=== PATIENT | male | born 1945 | race Two or more races ===

== ENCOUNTER 2017-08-11 10:38 | Inpatient (IN) | payer MEDICARE, BC ==
[2017-08-11] MEDS ORDERED: OXYCODONE-ACETAMINOPHEN 5-325 MG TABLET PO PRN ×2 (11:03→11:04)
[2017-08-11] MEDS ORDERED: ACETAMINOPHEN 325 MG TABLET PO PRN (11:03)
[2017-08-11 11:42] LABS: HEMATOCRIT 29.6 % (37.9-51.0); HEMOGLOBIN 10.2 g/dL (13.5-17.0); MEAN CORPUSCULAR HEMOGLOBIN 26.5 pg (27.0-33.4); MEAN CORPUSCULAR HGB CONC 34.3 g/dL (32.0-36.0); MEAN CORPUSCULAR VOLUME 77 fl (80-97); RED BLOOD COUNT 3.83 10^6/uL (4.35-5.55); RED CELL DISTRIBUTION WIDTH 14.3 % (11.5-14.0); WHITE BLOOD COUNT 9.6 10^3/uL (4.0-10.5)
[2017-08-11] MEDS ORDERED: DEXAMETHASONE SOD PHOS INJ 10 MG/1 ML VIAL IV ONE (12:00)
[2017-08-11] MEDS ORDERED: ALLOPURINOL 300 MG TABLET PO ONE (12:00)
[2017-08-11 12:03] LABS: ABSOLUTE EOSINOPHILS# (MANUAL) 0.5 10^3/uL (0.0-0.6); BAND NEUTROPHILS % (MANUAL) 8 % (3-5); BASOPHILS % (MANUAL) 2 % (0-2); EOSINOPHILS % (MANUAL) 5 % (0-6); LYMPHOCYTES % (MANUAL) 17 % (13-45); NUCLEATED RED BLOOD CELLS 3 /100 WBC (0); TOTAL CELLS COUNTED 100
[2017-08-11 12:06] LABS: ALANINE AMINOTRANSFERASE 54 U/L (21-72); ALBUMIN 4.5 g/dL (3.5-5.0); ALKALINE PHOSPHATASE 108 U/L (38-126); ANION GAP 18 (5-19); ASPARTATE AMINO TRANSFERASE 95 U/L (17-59); BILIRUBIN,DIRECT 0.3 mg/dL (0.0-0.4); BILIRUBIN,TOTAL 0.9 mg/dL (0.2-1.3); BLOOD UREA NITROGEN 18 mg/dL (7-20); CALCIUM 10.6 mg/dL (8.4-10.2); CARBON DIOXIDE 26 mmol/L (22-30); CHLORIDE 102 mmol/L (98-107); CREATININE RESULT 1.11 mg/dL (0.52-1.25); GLUCOSE 130 mg/dL (75-110); POTASSIUM 4.7 mmol/L (3.6-5.0); SODIUM 145.7 mmol/L (137-145); TOTAL PROTEIN 7.1 g/dL (6.3-8.2); URIC ACID 11.3 mg/dL (3.5-8.5)
[2017-08-11 12:07] LABS: ANISOCYTOSIS SLIGHT; HYPOCHROMASIA SLIGHT; MICROCYTOSIS SLIGHT; OVALOCYTES 1+; POIKILOCYTOSIS 1+; POLYCHROMASIA SLIGHT; ROULEAUX 1+
[2017-08-11 12:49] LABS: LDH 7077 U/L (313-618)
[2017-08-11 12:58] LABS: PATH REVIEW PATHOLOGIST REVIEWED
[2017-08-11] MEDS: NORMAL SALINE 1000 ML 1,000 ML IV PRN (13:49)
--- NOTE | 2017-08-11 16:48 | CONSULTATION REPORT E ---
Consultation Report NAME: CRISTEL PRESSLEY : 1945 AGE: 71Y DATE: 08/11/2017 435 A TO: LARRY ROWE M.D. FROM: PREETHI FUENTES M.D. Requesting Physician REASON FOR REFERRAL: Possible recurrent non-Hodgkin lymphoma. 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 He had presented with abdominal pain and was started on chemotherapy with R-CHOP. He received a total of 6 cycles and went into complete remission. His last chemotherapy was in 2013 and he states that he has been doing well up until about a month ago when he noticed increased weight loss, decreased appetite, and he presented in his primary care's office with abdominal pain and itching. His blood work shows elevated LDH, increased uric acid and increased serum calcium with renal insufficiency. He was admitted into the hospital. PAST MEDICAL HISTORY: As stated above, includes a history of non-Hodgkin lymphoma, high blood pressure, diabetes, hyperlipidemia. PHYSICAL EXAMINATION: GENERAL: On exam, he is an elderly man. He is not acutely ill looking. He was lying in bed, comfortable, with his by his bedside. LYMPH NODES: He has no palpable cervical or axillary adenopathy. ABDOMEN: His abdomen is slightly distended, soft. No area of tenderness. EXTREMITIES: No lower extremity edema. IMPRESSION AND PLAN: The patient is a 71-year-old man with a prior history of non-Hodgkin lymphoma. His symptoms and most recent blood work are concerning for recurrence of his lymphoma. I will request peripheral blood for flow cytometry, in addition I agree with his hydration and hopefully he will be able to obtain a CAT scan of his chest, abdomen and pelvis. If there are any enlarged lymph nodes or masses, this will need to be biopsied. I explained to him that if he has recurrence of his lymphoma and it is non-Hodgkin lymphoma, he would most likely be treated with the same regimen with plans to proceed to bone marrow transplant. I will discuss this in more details with him when we have a diagnosis. In the interim, I agree with the allopurinol because of increased uric acid and LDH, high calcium suggesting possible tumor lysis. He can be started on steroid, usually one would give 100 mg of prednisone daily for 5 days. I thank you for this consultation and allowing me to be part of his care. DICTATING PHYSICIAN: LARRY ROWE M.D. [id number] PHY#: [id number] ID: [id number] JOB#: [id number] ACCT: [id number] cc:LARRY ROWE M.D. >
[2017-08-11 18:41] LABS: APPEARANCE,URINE CLEAR; BILIRUBIN,URINE NEGATIVE (NEGATIVE); GLUCOSE, URINE 50 mg/dL (NEGATIVE); KETONES,URINE NEGATIVE (NEGATIVE); LEUKOCYTE ESTERASE,URINE NEGATIVE (NEGATIVE); NITRITE,URINE NEGATIVE (NEGATIVE); PROTEIN,URINE NEGATIVE (NEGATIVE); URINE SPECIFIC GRAVITY 1.017; UROBILINOGEN,URINE NEGATIVE mg/dL (<2.0)
[2017-08-11] MEDS ORDERED: INSULIN LISPRO 100 UNIT/ML 3 ML VIAL SUBCUT PRN (19:11)
[2017-08-11] MEDS ORDERED: GLUCAGON,HUMAN RECOMB 1 MG INJ IM PRN (19:11)
[2017-08-11] MEDS ORDERED: DEXTROSE 40% GEL 15 GM TUBE PO PRN ×2 (19:11)
[2017-08-11] MEDS ORDERED: (PENDING PHARMACY ID) (Ammonium Lactate 1 APPLIC) TP PRN (19:11)
[2017-08-11] MEDS ORDERED: DEXTROSE 50%-WATER 25 GM/50 ML DISP.SYRIN IV PRN ×2 (19:11)
[2017-08-11] MEDS: DEXAMETHASONE SOD PHOSPHATE INJ 4 MG/1 ML VIAL IV SCH (19:20)
[2017-08-11] MEDS ORDERED: AMMONIUM LACTATE 12% LOTION 225GM BOTTLE TP PRN (19:33)
--- NOTE | 2017-08-11 21:18 | PDOC H&P ---
History of Present Illness Admission Date/PCP: 08/11/17 10:38 PREETHI LEONKRYSTALMirian Patient complains of: Chest and back pain History of Present Illness: CRISTEL PRESSLEY is a 71 year old male known to my practice who presented to the office initially on 08/09/2017 with complaint of generalized itching, night sweats, and feeling hot. He was treated symptomatically but with concern for recurrence of his Non-Hodgkin lymphoma. His laboratory evaluation including CBC , LDH and Uric acid level did suggest significant anemia, thrombocytopenia, elevated LDH and uric acid level. Patient reported development of chest pain and abdominal pain since last office visit. He reported worsening of sharp back pain with radiation into his legs, rated at 8/10 level, and interference with his sleep. Patient denied any identifiable trigger event for hos abdominal pain that travel up and down his abdomen and into his chest. He denied any other associated abdominal or chest symptoms. His initial evaluation in the office was significant for persistent tachycardia. In view of his presenting symptoms and medical history he was advised admission to hospital for further evaluation and management. Past Medical History Cardiac Medical History: Reports: Hyperlipidema, Hypertension Endocrine Medical History: Reports: Diabetes Mellitus Type 2, Obesity Renal/ Medical History: Reports: Other - BPH, Erectile Dysfunction Malignancy Medical History: Reports: Lymphoma - Non Hodgkin's Lymphoma. Psychiatric Medical History: Denies: Depression Social History Smoking Status: Former Smoker Frequency of Alcohol Use: None Hx Recreational Drug Use: No Drugs: None Hx Prescription Drug Abuse: No - Advance Directive Resuscitation Status: Full Code Family History Family History: None Parental Family History Reviewed: Yes Children Family History Reviewed: Yes Sibling(s) Family History Reviewed.: Yes Medication/Allergy Home Medications: Amlodipine Besylate [Norvasc 5 mg Tablet] 5 mg PO DAILY 08/11/17 Ammonium Lactate [Lac-Hydrin 12% Lotion 225Gm/Bottle] 1 applic TP TIDP PRN 08/11 Atorvastatin Calcium [Lipitor 20 mg Tablet] 20 mg PO QHS 08/11/17 Benazepril HCl [Lotensin] 40 mg PO DAILY 08/11/17 Esomeprazole Magnesium [Nexium] 40 mg PO QAM 08/11/17 Hydroxyzine HCl [Atarax 25 mg Tablet] 1 tab PO QIDP PRN 08/11/17 Nateglinide [Starlix] 120 mg PO MEALS 08/11/17 Pioglitazone HCl/Glimepiride [Pioglitaz-Glimepir 30-4 mg Tab] 1 tab PO DAILY Allergies/Adverse Reactions: clonidine Allergy (Unverified 08/11/17 11:06) Review of Systems Constitutional: PRESENT: fatigue, night sweats, weight loss Eyes: PRESENT: visual disturbances Ears: ABSENT: hearing changes Nose, Mouth, and Throat: ABSENT: as per HPI, headache(s), mouth pain, sore throat, vertigo, other Cardiovascular: PRESENT: chest pain Respiratory: ABSENT: cough, hemoptysis Gastrointestinal: PRESENT: abdominal pain. ABSENT: as per HPI, bloating, coffee ground emesis, constipation, diarrhea, dysphagia, heartburn, hematemesis , hematochezia, melena, nausea, vomiting, other Musculoskeletal: ABSENT: joint swelling Integumentary: PRESENT: pruritus Neurological: ABSENT: abnormal gait, abnormal speech, confusion, dizziness, focal weakness, syncope Psychiatric: ABSENT: anxiety, depression, homidical ideation, suicidal ideation Endocrine: ABSENT: cold intolerance, heat intolerance, polydipsia, polyuria Hematologic/Lymphatic: ABSENT: easy bleeding, easy bruising, lymphadenopathy Allergic/Immunologic: ABSENT: seasonal rhinorrhea Physical Exam Vital Signs: Temp Pulse Resp BP Pulse Ox 98.1 F 104 H 18 121/63 100 08/11/17 16:00 08/11/17 16:00 08/11/17 16:00 08/11/17 16:00 08/11/17 16:00 Intake & Output 08/10/17 08/11/17 08/12/17 06:59 06:59 06:59 Intake Total 1090 Output Total 300 Balance 790 Weight 95.164 kg General appearance: PRESENT: no acute distress, cooperative, obese Head exam: PRESENT: atraumatic, normocephalic Eye exam: PRESENT: conjunctiva pink, EOMI, PERRLA. ABSENT: scleral icterus Ear exam: PRESENT: normal external ear exam Mouth exam: PRESENT: moist, tongue midline Teeth exam: ABSENT: dental caries, dental tenderness, edentulous, poor dentation , other Throat exam: ABSENT: post pharyngeal erythema, tonsillar erythema, tonsillar exudate, tonsillogmegaly, other Neck exam: PRESENT: full ROM. ABSENT: carotid bruit, JVD, lymphadenopathy, thyromegaly Respiratory exam: PRESENT: clear to auscultation jihan Cardiovascular exam: PRESENT: RRR, +S1, +S2, tachycardia. ABSENT: diastolic murmur, rubs, systolic murmur Pulses: PRESENT: normal dorsalis pedis pul, +2 pedal pulses bilateral Vascular exam: PRESENT: normal capillary refill. ABSENT: pallor GI/Abdominal exam: PRESENT: normal bowel sounds, soft. ABSENT: distended, guarding, mass, organolmegaly, rebound, tenderness Rectal exam: PRESENT: deferred Gentrourinary exam: ABSENT: scrotal swelling, testicular tenderness, urethral discharge Extremities exam: ABSENT: pedal edema Musculoskeletal exam: PRESENT: deformity - related to multiple jpints involvement with arthritis Neurological exam: PRESENT: alert, awake, oriented to person, oriented to place , oriented to time, oriented to situation, CN II-XII grossly intact. ABSENT: motor sensory deficit Psychiatric exam: PRESENT: appropriate affect, normal mood. ABSENT: homicidal ideation, suicidal ideation Skin exam: PRESENT: dry, rash - scaly around chest and neck region, warm Results Laboratory Results: 08/11/17 11:28 08/11/17 11:28 08/11/17 08/11/17 08/11/17 11:28 11:28 16:13 WBC 9.6 RBC 3.83 L Hgb 10.2 L Hct 29.6 L MCV 77 L MCH 26.5 L MCHC 34.3 RDW 14.3 H Plt Count 34 L Seg Neutrophils % Not Reportable Lymphocytes % Not Reportable Monocytes % Not Reportable Eosinophils % Not Reportable Basophils % Not Reportable Absolute Neutrophils Not Reportable Absolute Lymphocytes Not Reportable Absolute Monocytes Not Reportable Absolute Eosinophils Not Reportable Absolute Basophils Not Reportable Sodium 145.7 H Potassium 4.7 Chloride 102 Carbon Dioxide 26 Anion Gap 18 BUN 18 Creatinine 1.11 Est GFR ( Amer) > 60 Est GFR (Non-Af Amer) > 60 Glucose 130 H Uric Acid 11.3 H Calcium 10.6 H Total Bilirubin 0.9 AST 95 H ALT 54 Alkaline Phosphatase 108 Total Protein 7.1 Albumin 4.5 Urine Color YELLOW Urine Appearance CLEAR Urine pH 5.0 Ur Specific [place] 1.017 Urine Protein NEGATIVE Urine Glucose (UA) 50 H Urine Ketones NEGATIVE Urine Blood NEGATIVE Urine Nitrite NEGATIVE Ur Leukocyte Esterase NEGATIVE Urine WBC (Auto) 1 Assessment & Plan - Diagnosis (1) Diffuse large B cell lymphoma Qualifiers: Lymphoma site: unspecified region Qualified Code(s): C83.30 - Diffuse large B-cell lymphoma, unspecified site Is this a current diagnosis for this admission?: Yes Plan: See admitting physician orders. (2) Hypercalcemia of malignancy Is this a current diagnosis for this admission?: Yes Plan: Probably related to his underlying malignancy with tumor lysis process. See admitting physician orders. (3) Hyperuricemia Is this a current diagnosis for this admission?: Yes Plan: Probably related to his underlying malignancy with tumor lysis process. See admitting physician orders. (4) Diabetes mellitus type 2 in obese Is this a current diagnosis for this admission?: Yes Plan: See admitting physician orders (5) HTN (hypertension) Qualifiers: Hypertension type: essential hypertension Qualified Code(s): I10 - Essential (primary) hypertension Is this a current diagnosis for this admission?: Yes Plan: See admitting physician orders. (6) HLD (hyperlipidemia) Qualifiers: Hyperlipidemia type: unspecified Qualified Code(s): E78.5 - Hyperlipidemia , unspecified Is this a current diagnosis for this admission?: Yes Plan: See admitting physician orders (7) Osteoarthritis involving multiple joints on both sides of body Is this a current diagnosis for this admission?: Yes Plan: See admitting physician orders (8) Obesity (BMI 30.0-34.9) Is this a current diagnosis for this admission?: Yes Plan: See admitting physician orders - Time Time Spent: Greater than 70 Minutes Medications reviewed and adjusted accordingly: Yes Anticipated discharge: Home with Homehealth Within: Other - Inpatient Certification Based on my medical assessment, after consideration of the patient's comorbidities, presenting symptoms, or acuity I expect that the services needed warrant INPATIENT care.: Yes I certify that my determination is in accordance with my understanding of Medicare's requirements for reasonable and necessary INPATIENT services [42 CFR 412.3e].: Yes Medical Necessity: Need Close Monitoring Due to Risk of Patient Decompensation, Need For IV Fluids, Need For Continuous Telemetry Monitoring, Risk of Complication if Not Cared For in Hospital Post Hospital Care: D/C Microfilmer Documentation - Plan Summary Plan Summary: See admitting physician orders
[2017-08-11] MEDS ORDERED: ATORVASTATIN CALCIUM 20 MG TABLET PO SCH (22:00)
[2017-08-12] MEDS: DEXAMETHASONE SOD PHOSPHATE INJ 4 MG/1 ML VIAL IV SCH ×2 (00:18→06:33)
[2017-08-12] MEDS: NORMAL SALINE 1000 ML 1,000 ML IV PRN (02:33)
--- NOTE | 2017-08-12 04:09 | RADIOLOGY REPORT (SQ) ---
EXAM DESCRIPTION: CT CHEST WITH COMPLETED DATE/TIME: 08/11/2017 10:14 pm REASON FOR STUDY: Recurrent Non Hodgkin's lymphoma COMPARISON: CT chest 05/21/2015, CT abdomen and pelvis 08/11/2017. TECHNIQUE: CT scan of the chest performed using helical scanning technique with dynamic intravenous contrast injection. Images reviewed with lung, soft tissue and bone windows. Reconstructed coronal and sagittal MPR images reviewed. All images stored on PACS. All CT scanners at this facility use dose modulation, iterative reconstruction, and/or weight based d osing when appropriate to reduce radiation dose to as low as reasonably achievable (ALARA). [facility]: Dose Right [facility]: CareDose [facility]: Dose Right [facility]: Teradose 4D [facility]: [employer] CONTRAST TYPE AND DOSE: contrast/concentration: Isovue 370.00 mg/ml; Total Contrast Delivered: 100.0 ml; Total Saline Delivered: 55.1 ml RENAL FUNCTION: Creatinine 1.11 RADIATION DOSE: . LIMITATIONS: None. FINDINGS: LUNGS AND PLEURA: No consolidation, pleural effusion or pneumothorax HILAR AND MEDIASTINAL STRUCTURES: Multiple enlarged mediastinal lymph nodes are present. There is a 17 x 26 mm prevascular lymph node. There is a 16 x 26 mm right paratracheal lymph node. No patholog ically enlarged lymph nodes are seen at the ramya. HEART AND VASCULAR STRUCTURES: No thoracic aortic aneurysm or dissection. No pericardial effusion. Scattered coronary arteries calcifications are noted. UPPER ABDOMEN: See separate report of the CT of the abdomen. THYROID AND OTHER SOFT TISSUES: The visualized thyroid gland is unremarkable. Left supraclavicular l ymph node measuring 17 x 23 mm. Right axillary lymph node measuring 18 x 37 mm. A retrocrural lymph node measuring 15 x 16 mm. BONES: Orthopedic hardware at the thoracic spine. IMPRESSION: Left supraclavicular, right axillary, mediastinal and retrocrural adenopathy, consistent with clinical history of recurrent lymphoma. Evaluation with PET/CT as clinically warranted. TECHNICAL DOCUMENTATION: JOB ID: [id number] RI- Quality ID # [id number]: Final reports with documentation of one or more dose reduction techniques (e.g., Au tomated exposure control, adjustment of the mA and/or kV according to patient size, use of iterative reconstruction technique) 2010 [employer]- All Rights Reserved
--- NOTE | 2017-08-12 05:23 | RADIOLOGY REPORT (SQ) ---
EXAM DESCRIPTION: CT ABD/PELVIS WITH IV ORAL COMPLETED DATE/TIME: 08/11/2017 10:14 pm REASON FOR STUDY: Recurrent Non Hodgkin's lymphoma COMPARISON: CT chest 08/11/2017. CT abdomen and pelvis 05/21/2015. TECHNIQUE: CT scan of the abdomen and pelvis performed using helical scanning technique with dynamic intravenous contrast injection and with oral contrast. Images reviewed with lung, soft tissue, and b one windows. Reconstructed coronal and sagittal MPR images reviewed. Delayed images for evaluation of the urinary system also acquired. All images stored on PACS. All CT scanners at this facility use dose modulation, iterative reconstruction, and/or weight based d osing when appropriate to reduce radiation dose to as low as reasonably achievable (ALARA). [facility]: Dose Right [facility]: CareDose [facility]: Dose Right [facility]: Teradose 4D [facility]: [employer] CONTRAST TYPE AND DOSE: 100 mL Isovue 370- low osmolar. RENAL FUNCTION: Creatinine 1.11 RADIATION DOSE: . LIMITATIONS: None. FINDINGS: LOWER CHEST: See separate report of the CT of the chest. LIVER: Normal size. No masses. No dilated ducts. SPLEEN: Mildly enlarged measuring 14.3 cm craniocaudally. PANCREAS: No significant calcifications. No adjacent inflammation or peripancreatic fluid collections . Pancreatic duct not dilated. GALLBLADDER: Contracted. ADRENAL GLANDS: No significant masses or asymmetry. RIGHT KIDNEY AND URETER: No significant calcifications. No hydronephrosis or hydroureter. LEFT KIDNEY AND URETER: No significant calcifications. No hydronephrosis or hydroureter. AORTA AND VESSELS: No abdominal aortic aneurysm. RETROPERITONEUM: Bulky retroperitoneal adenopathy engulfing the IVC and extending along the bilateral common and external iliac veins, right more than left. Conglomerate of soft tissue density at the r etroperitoneum is measuring 4.5 x 5.4 cm (image 77/135). Conglomerate of soft tissue density in in t he right pelvis along the right external iliac chain is measuring 3.1 x 6.8 cm (image 98/135). BOWEL AND PERITONEAL CAVITY: Oral contrast is seen in the stomach and nondilated small bowel loops. No evidence for obstruction. Moderate amount of stool in the ascending and transverse colon. No mayra e fluid or free air. APPENDIX: Normal. PELVIS: The urinary bladder is partially decompressed. There is a 3.5 x 2.0 cm soft tissue mass at t he long the left side of the urinary bladder. There is asymmetric enlargement at the left seminal ve sicle. No free fluid. ABDOMINAL WALL: There is a wide neck small umbilical hernia with nondilated bowel loops protruding in to the hernia defect. Small right inguinal hernia containing a 2.4 x 1.7 cm soft tissue density. Sm all fat containing left inguinal hernia BONES: Orthopedic hardware at the thoracolumbar spine. Degenerative changes at the lumbar spine. IMPRESSION: 1. Bulky retroperitoneal engulfing the IVC, and pelvic adenopathy, consistent with clin ical history of recurrent lymphoma. Evaluation with PET/CT may be worthwhile. 2. Soft tissue mass along the left side of the urinary bladder, worrisome of bladder lymphoma, correl ation with cystoscopy recommended. 3. Asymmetric enlargement of the left seminal vesicle, concerning for lymphoma. 4. Mild splenomegaly. 5. Wide neck small umbilical hernia with nondilated bowel loops protruding into the hernia defect. 6. A 2.4 x 1.7 cm soft tissue density at the right inguinal hernia, may represent an undescended mitch ticle versus lymphoma. Please correlate with clinical exam. Evaluation with ultrasound as clinicall y warranted. TECHNICAL DOCUMENTATION: JOB ID: [id number] [place]-64 Quality ID # [id number]: Final reports with documentation of one or more dose reduction techniques (e.g., Au tomated exposure control, adjustment of the mA and/or kV according to patient size, use of iterative reconstruction technique) 2010 [employer]- All Rights Reserved
[2017-08-12] MEDS ORDERED: LANSOPRAZOLE 30 MG TAB.RAP.DR PO SCH (06:00)
[2017-08-12] MEDS ORDERED: (PENDING PHARMACY ID) (Nateglinide [Starlix] 120 MG) PO SCH (08:00)
[2017-08-12] MEDS ORDERED: PIOGLITAZONE PO SCH (10:00)
[2017-08-12] MEDS ORDERED: PREDNISONE 20 MG TABLET PO SCH (10:00)
[2017-08-12] MEDS ORDERED: ALLOPURINOL 300 MG TABLET PO SCH (10:00)
[2017-08-12] MEDS ORDERED: BENAZEPRIL HCL 20 MG TABLET PO SCH (10:00)
[2017-08-12] MEDS ORDERED: GLIMEPIRIDE PO SCH (10:00)
[2017-08-12] MEDS ORDERED: AMLODIPINE BESYLATE 5 MG TABLET PO SCH (10:00)
[2017-08-12] MEDS ORDERED: GLIMEPIRIDE 4 MG TABLET PO SCH (10:00)
[2017-08-12] MEDS ORDERED: [UNRECOGNIZED DRUG - OTHER] PO SCH (10:00)
[2017-08-12] MEDS ORDERED: PIOGLITAZONE HCL 30 MG TABLET PO SCH (10:00)
[2017-08-12] MEDS ORDERED: (PENDING PHARMACY ID) (Benazepril Hcl [Lotensin] 40 MG) PO SCH (10:00)
[2017-08-12] MEDS: NATEGLINIDE 60 MG TABLET PO SCH ×3 (11:19→16:16)
--- NOTE | 2017-08-12 17:07 | PDOC DISCHARGE SUMMARY ---
General - Admit/Disc Date/PCP Admission Date/Primary Care Provider: 08/11/17 10:38 PREETHI FUENTES Discharge Date: 08/12/17 - Discharge Diagnosis (1) Diffuse large B cell lymphoma Is this a current diagnosis for this admission?: Yes (2) Hypercalcemia of malignancy Is this a current diagnosis for this admission?: Yes (3) Hyperuricemia Is this a current diagnosis for this admission?: Yes (4) Diabetes mellitus type 2 in obese Is this a current diagnosis for this admission?: Yes (5) HTN (hypertension) Is this a current diagnosis for this admission?: Yes (6) HLD (hyperlipidemia) Is this a current diagnosis for this admission?: Yes (7) Osteoarthritis involving multiple joints on both sides of body Is this a current diagnosis for this admission?: Yes (8) Obesity (BMI 30.0-34.9) Is this a current diagnosis for this admission?: Yes - Additional Information Resuscitation Status: Full Code Home Medications: Amlodipine Besylate [Norvasc 5 mg Tablet] 5 mg PO DAILY 08/11/17 Ammonium Lactate [Lac-Hydrin 12% Lotion 225Gm/Bottle] 1 applic TP TIDP PRN 08/11 Atorvastatin Calcium [Lipitor 20 mg Tablet] 20 mg PO QHS 08/11/17 Benazepril HCl [Lotensin] 40 mg PO DAILY 08/11/17 Esomeprazole Magnesium [Nexium] 40 mg PO QAM 08/11/17 Hydroxyzine HCl [Atarax 25 mg Tablet] 1 tab PO QIDP PRN 08/11/17 Nateglinide [Starlix] 120 mg PO MEALS 08/11/17 Pioglitazone HCl/Glimepiride [Pioglitazone-Glimepiride 30-4] 1 tab PO DAILY Allopurinol [Zyloprim 300 mg Tablet] 300 mg PO DAILY #30 tablet 08/12/17 Insulin Lispro [Humalog Kwikpen U-100] 100 unit SQ ACHS PRN #5 insuln.pen Oxycodone HCl/Acetaminophen [Percocet 5-325 mg Tablet] 1 tab PO Q4HP PRN #20 tablet 08/12/17 Prednisone [Deltasone 20 mg Tablet] 100 mg PO DAILY 5 Days tablet 08/12/17 History of Present Illness Patient complains of: Chest and abdominal pain History of Present Illness: CRISTEL PRESSLEY is a 71 year old male known to my practice who presented to the office initially on 08/09/2017 with complaint of generalized itching, night sweats, and feeling hot. He was treated symptomatically but with concern for recurrence of his Non-Hodgkin lymphoma. His laboratory evaluation including CBC , LDH and Uric acid level did suggest significant anemia, thrombocytopenia, elevated LDH and uric acid level. Patient reported development of chest pain and abdominal pain since last office visit. He reported worsening of sharp back pain with radiation into his legs, rated at 8/10 level, and interference with his sleep. Patient denied any identifiable trigger event for his abdominal pain that travel up and down his abdomen and into his chest. He denied any other associated abdominal or chest symptoms. His initial evaluation in the office was significant for persistent tachycardia. In view of his presenting symptoms and medical history he was advised admission to hospital for further evaluation and management. Hospital Course Hospital Course: Patient was treated with IV fluid hydration, Allopurinol, and IV Decadron. He was transition to oral Prednisone as recommended by medical oncologist. His CT chest and Abdomen/Pelvis did suggest diffuse lymphadenopathy. He reported some improvement inghis chest and abdominal pain. His itching is improving. He is agreeable to discharge home today with plan for outpatient CT guided biopsy of appropriate mass lesion on 08/15/2017. His peripheral blood flow cytometry is pending report on findings at the time of his discharge. He will follow up with Dr Samaniego and myself as instructed upon discharge. Physical Exam Vital Signs: Temp Pulse Resp BP Pulse Ox 97.7 F 93 16 152/58 H 98 08/12/17 08:08 08/12/17 14:00 08/12/17 08:08 08/12/17 08:08 08/12/17 08:08 Intake & Output 08/11/17 08/12/17 08/13/17 06:59 06:59 06:59 Intake Total 3670 630 Output Total 650 Balance 3020 630 Weight 95.164 kg General appearance: PRESENT: no acute distress Head exam: PRESENT: atraumatic, normocephalic Eye exam: PRESENT: conjunctiva pink, EOMI, PERRLA. ABSENT: scleral icterus Mouth exam: PRESENT: moist Respiratory exam: PRESENT: clear to auscultation jihan Cardiovascular exam: PRESENT: RRR. ABSENT: diastolic murmur, rubs, systolic murmur Vascular exam: PRESENT: normal capillary refill. ABSENT: pallor GI/Abdominal exam: PRESENT: normal bowel sounds, soft. ABSENT: distended, guarding, mass, organolmegaly, rebound, tenderness Extremities exam: ABSENT: pedal edema Musculoskeletal exam: PRESENT: deformity - related to multiple jopints involvement wuith arthritis Neurological exam: PRESENT: alert, awake, oriented to person, oriented to place , oriented to time, oriented to situation, CN II-XII grossly intact. ABSENT: motor sensory deficit Psychiatric exam: PRESENT: appropriate affect, normal mood. ABSENT: homicidal ideation, suicidal ideation Skin exam: PRESENT: dry, intact, warm. ABSENT: cyanosis, rash Results Laboratory Results: 08/11/17 11:28 08/11/17 11:28 08/11/17 16:13 Urine Color YELLOW Urine Appearance CLEAR Urine pH 5.0 Ur Specific [place] 1.017 Urine Protein NEGATIVE Urine Glucose (UA) 50 H Urine Ketones NEGATIVE Urine Blood NEGATIVE Urine Nitrite NEGATIVE Ur Leukocyte Esterase NEGATIVE Urine WBC (Auto) 1 Impressions: Abdomen/Pelvis CT 08/11/17 00:00 IMPRESSION: 1. Bulky retroperitoneal engulfing the IVC, and pelvic adenopathy , consistent with clinical history of recurrent lymphoma. Evaluation with PET/ CT may be worthwhile. 2. Soft tissue mass along the left side of the urinary bladder, worrisome of bladder lymphoma, correlation with cystoscopy recommended. 3. Asymmetric enlargement of the left seminal vesicle, concerning for lymphoma. 4. Mild splenomegaly. 5. Wide neck small umbilical hernia with nondilated bowel loops protruding into the hernia defect. 6. A 2.4 x 1.7 cm soft tissue density at the right inguinal hernia, may represent an undescended testicle versus lymphoma. Please correlate with clinical exam. Evaluation with ultrasound as clinically warranted. Chest CT 08/11/17 00:00 IMPRESSION: Left supraclavicular, right axillary, mediastinal and retrocrural adenopathy, consistent with clinical history of recurrent lymphoma. Evaluation with PET/CT as clinically warranted. Qualifiers PATEINT BEING DISCHARGED WITH ANY OF THE FOLLOWING DIAGNOSIS?: No Plan Discharge Plan: D/C home today. Follow up with interventional radiologist, medical oncologist and myself as instructed upon discharge. Time Spent: Greater than 30 Minutes - More than 50% of my time was spent in his care coordination with interventional radiologist ad oncologist as well as care plan discussion with patient and spouse at bedside.
[2017-08-12 18:32] VITALS: BP 121/63
== END 2017-08-12 18:30 | disposition home or self-care (01) | DRG 842 ==
LOC: 4S 10:38
PROVIDERS: ADMIT Internal Medicine Geriatric Medicine; ATTEND Internal Medicine Geriatric Medicine
DX: C83.30 Diffuse large B-cell lymphoma, unspecified site (principal); E11.9 Type 2 diabetes mellitus without complications; I10 Essential (primary) hypertension; N40.0 Benign prostatic hyperplasia without lower urinary tract symptoms; E83.52 Hypercalcemia; E79.0 Hyperuricemia without signs of inflammatory arthritis and tophaceous disease; E78.5 Hyperlipidemia, unspecified; E66.9 Obesity, unspecified; Z68.31 Body mass index [BMI] 31.0-31.9, adult; M15.3 Secondary multiple arthritis; Z79.899 Other long term (current) drug therapy; Z79.4 Long term (current) use of insulin; Z87.891 Personal history of nicotine dependence; Z88.6 Allergy status to analgesic agent
CPT/HCPCS: 36415; 71260; 74177; 80053; 81001; 82962; 83615; 84550; 85025; 88184; 88185; J1100; J1815; J3490; J7030; J7512

== ENCOUNTER 2017-08-15 08:50 | Inpatient (IN) | payer MEDICARE, BC ==
[2017-08-15] MEDS ORDERED: NORMAL SALINE 1000 ML 1,000 ML IV ONE (09:10)
[2017-08-15] MEDS ORDERED: KETOROLAC TROMETHAMINE INJ/PF 30 MG/1 ML SDV IV ONE (09:11)
[2017-08-15] MEDS ORDERED: ONDANSETRON HCL INJ/PF 4 MG/2 ML SDV IV ONE (09:11)
--- NOTE | 2017-08-15 09:13 | ER Document Report ---
ED Medical Screen (RME) - General Chief Complaint: Pain All Over Stated Complaint: BODY ACHES Time Seen by Provider: 08/15/17 09:06 Notes: Patient was just discharged from the hospital 2 days ago he states. He has a history of recurrent lymphoma with a retroperitoneal mass. He presents now stating that he is having worsening pain, constipation, and vomiting. TRAVEL OUTSIDE OF THE [place] IN LAST 30 DAYS: No - Related Data Allergies/Adverse Reactions: clonidine Allergy (Verified 08/15/17 08:51) Past Medical History - Social History Chew tobacco use (# tins/day): No Frequency of alcohol use: None Drug Abuse: None - Past Medical History Cardiac Medical History: Reports: Hx Hypercholesterolemia, Hx Hypertension Endocrine Medical History: Reports: Hx Diabetes Mellitus Type 2 Renal/ Medical History: Denies: Hx Peritoneal Dialysis Malignancy Medical History: Reports Hx Lymphoma - Non Hodgkin's Lymphoma. Psychiatric Medical History: Denies: Hx Depression - Immunizations Hx Diphtheria, Pertussis, Tetanus Vaccination: - unk History of Influenza Vaccine for 06/2017 - 11/2017 Season: Refused Physical Exam - Vital signs Vitals: Temp Pulse Resp BP Pulse Ox 97.6 F 93 20 161/74 H 98 08/15/17 08:57 08/15/17 08:57 08/15/17 08:57 08/15/17 08:57 08/15/17 08:57 Course - Vital Signs Vital signs: Temp Pulse Resp BP Pulse Ox 97.6 F 93 20 161/74 H 98 08/15/17 08:57 08/15/17 08:57 08/15/17 08:57 08/15/17 08:57 08/15/17 08:57
[2017-08-15 10:15] LABS: HEMATOCRIT 26.9 % (37.9-51.0); HEMOGLOBIN 9.2 g/dL (13.5-17.0); HGB HCT DIFFERENCE 0.7; MEAN CORPUSCULAR HEMOGLOBIN 26.3 pg (27.0-33.4); MEAN CORPUSCULAR HGB CONC 34.4 g/dL (32.0-36.0); MEAN CORPUSCULAR VOLUME 77 fl (80-97); RED BLOOD COUNT 3.51 10^6/uL (4.35-5.55); RED CELL DISTRIBUTION WIDTH 14.2 % (11.5-14.0); WHITE BLOOD COUNT 7.2 10^3/uL (4.0-10.5)
[2017-08-15 10:19] LABS: APPEARANCE,URINE CLEAR; BILIRUBIN,URINE NEGATIVE (NEGATIVE); GLUCOSE, URINE 150 mg/dL (NEGATIVE); KETONES,URINE NEGATIVE (NEGATIVE); LEUKOCYTE ESTERASE,URINE NEGATIVE (NEGATIVE); NITRITE,URINE NEGATIVE (NEGATIVE); PROTEIN,URINE NEGATIVE (NEGATIVE); URINE SPECIFIC GRAVITY 1.019; UROBILINOGEN,URINE NEGATIVE mg/dL (<2.0)
[2017-08-15 10:29] LABS: ALANINE AMINOTRANSFERASE 42 U/L (21-72); ALBUMIN 4.3 g/dL (3.5-5.0); ALKALINE PHOSPHATASE 201 U/L (38-126); ANION GAP 12 (5-19); ASPARTATE AMINO TRANSFERASE 87 U/L (17-59); BILIRUBIN,DIRECT 0.4 mg/dL (0.0-0.4); BILIRUBIN,TOTAL 0.9 mg/dL (0.2-1.3); BLOOD UREA NITROGEN 20 mg/dL (7-20); CALCIUM 9.8 mg/dL (8.4-10.2); CARBON DIOXIDE 29 mmol/L (22-30); CHLORIDE 93 mmol/L (98-107); CREATININE RESULT 0.82 mg/dL (0.52-1.25); GLUCOSE 233 mg/dL (75-110); POTASSIUM 4.3 mmol/L (3.6-5.0); SODIUM 134.4 mmol/L (137-145); TOTAL PROTEIN 6.8 g/dL (6.3-8.2)
[2017-08-15 10:46] LABS: ABSOLUTE EOSINOPHILS# (MANUAL) 0.1 10^3/uL (0.0-0.6); BAND NEUTROPHILS % (MANUAL) 2 % (3-5); BASOPHILS % (MANUAL) 0 % (0-2); EOSINOPHILS % (MANUAL) 1 % (0-6); LYMPHOCYTES % (MANUAL) 20 % (13-45); TOTAL CELLS COUNTED 100
[2017-08-15 10:48] LABS: TOXIC GRANULATION SLIGHT
[2017-08-15 10:49] LABS: ANISOCYTOSIS SLIGHT; MICROCYTOSIS SLIGHT; POLYCHROMASIA SLIGHT
--- NOTE | 2017-08-15 11:08 | ER Document Report ---
ED General <DARWIN SANTOS - Last Filed: 08/15/17 13:40> - General Mode of Arrival: Ambulatory Information source: Patient TRAVEL OUTSIDE OF THE [place] IN LAST 30 DAYS: No - HPI Onset: Last week - Tuesday <MILE HINES - Last Filed: 08/15/17 14:15> - General Chief Complaint: Pain All Over Stated Complaint: BODY ACHES Time Seen by Provider: 08/15/17 09:06 Notes: Patient is a 71 year old male with a history of Lymphoma with a retroperitoneal mass and arthritis presents to the emergency department complaining of general body aches onset 2 days ago. Patient states that the pain starts in his back and goes into his knees. Patient's associated symptoms include constipation and vomiting. Patient was seen in the emergency department on 08/11/2017 -08/12/2017 for diffuse large B cell lymphoma and osteoarthritis. Patient was prescribed Prednisone (100 mg) daily for 5 days on 08/12/2017 . (MILE HINES) - Related Data Allergies/Adverse Reactions: clonidine Allergy (Verified 08/15/17 08:51) Past Medical History - General Information source: Patient - Social History Smoking Status: Former Smoker Chew tobacco use (# tins/day): No Frequency of alcohol use: None Drug Abuse: None Family History: None Patient has suicidal ideation: No Patient has homicidal ideation: No - Past Medical History Cardiac Medical History: Reports: Hx Hypercholesterolemia, Hx Hypertension Endocrine Medical History: Reports: Hx Diabetes Mellitus Type 2 Malignancy Medical History: Reports Hx Lymphoma - Non Hodgkin's Lymphoma. - Immunizations Hx Diphtheria, Pertussis, Tetanus Vaccination: - unk <MILE HINES - Last Filed: 08/15/17 14:15> Review of Systems - Review of Systems Constitutional: No symptoms reported EENT: No symptoms reported Cardiovascular: No symptoms reported Respiratory: No symptoms reported Gastrointestinal: No symptoms reported Genitourinary: No symptoms reported Male Genitourinary: No symptoms reported Musculoskeletal: See HPI, Back pain, Joint pain Skin: No symptoms reported Hematologic/Lymphatic: No symptoms reported Neurological/Psychological: No symptoms reported -: Yes All other systems reviewed and negative <MILE HINES - Last Filed: 08/15/17 14:15> Physical Exam - General General appearance: Appears well, Alert In distress: None - HEENT Head: Normocephalic, Atraumatic Eyes: Normal Conjunctiva: Normal Pupils: PERRL Mucous membranes: Dry - Respiratory Respiratory status: No respiratory distress Chest status: Nontender Breath sounds: Normal - Cardiovascular Rhythm: Regular Heart sounds: Normal auscultation Murmur: No Friction rub: No Gallop: None auscultated - Abdominal Inspection: Obese Distension: No distension Bowel sounds: Normal Tenderness: Nontender Organomegaly: No organomegaly - Back Back: Normal - Extremities General upper extremity: Normal inspection, Normal ROM General lower extremity: Normal inspection, Normal ROM Knee: Normal - Neurological Neuro grossly intact: Yes Cognition: Normal Orientation: AAOx4 [place] Coma Scale Eye Opening: Spontaneous [place] Coma Scale Verbal: Oriented [place] Coma Scale Motor: Obeys Commands [place] Coma Scale Total: 15 Speech: Normal - Psychological Associated symptoms: Normal affect, Normal mood - Skin Skin Temperature: Warm Skin Moisture: Dry Skin Color: Normal <MILE HINES - Last Filed: 08/15/17 14:15> - Vital signs Vitals: Temp Pulse Resp BP Pulse Ox 97.6 F 93 20 161/74 H 98 08/15/17 08:57 08/15/17 08:57 08/15/17 08:57 08/15/17 08:57 08/15/17 08:57 Course - Laboratory Result Diagrams: 08/15/17 09:41 08/15/17 09:41 - Consults Dr. Fuentes Time consulted: 13:40 Consulted provider: will see as inpatient <DARWIN SANTOS - Last Filed: 08/15/17 13:40> - Laboratory Result Diagrams: 08/15/17 09:41 08/15/17 09:41 <MILE HINES - Last Filed: 08/15/17 14:15> - Vital Signs Vital signs: Temp Pulse Resp BP Pulse Ox 97.6 F 93 20 161/74 H 98 08/15/17 08:57 08/15/17 08:57 08/15/17 08:57 08/15/17 08:57 08/15/17 08:57 - Laboratory Laboratory results interpreted by me: 08/15/17 08/15/17 08/15/17 09:41 09:41 09:41 RBC 3.51 L Hgb 9.2 L Hct 26.9 L MCV 77 L MCH 26.3 L RDW 14.2 H Plt Count 20 L* Band Neutrophils % 2 L Monocytes % (Manual) 22 H Metamyelocytes % 2 H Myelocytes % 1 H Promyelocytes % 1 H Abs Monocytes (Manual) 1.6 H Sodium 134.4 L Chloride 93 L Glucose 233 H AST 87 H Alkaline Phosphatase 201 H Urine Glucose (UA) 150 H Discharge - Discharge Admitting Provider: [facility] Unit Admitted: Medical Floor <DARWIN SANTOS - Last Filed: 08/15/17 13:40> <MILE HINES - Last Filed: 08/15/17 14:15> - Discharge Clinical Impression: Thrombocytopenia Diffuse large B cell lymphoma Qualifiers: Lymphoma site: unspecified region Qualified Code(s): C83.30 - Diffuse large B- cell lymphoma, unspecified site Condition: Stable Disposition: ADMITTED INPATIENT Referrals: PREETHI FUENTES MD [Primary Care Provider] - Follow up as needed Scribe Attestation: 08/15/17 11:49 I personally performed the services described in the documentation, reviewed and edited the documentation which was dictated to the scribe in my presence, and it accurately records my words and actions. (DARWIN SANTOS) Scribe Documentation - Scribe Written by Colleen:: Colleen Griggs, 08/15/2017 11:16 acting as scribe for :: Moises <MILE HINES - Last Filed: 08/15/17 14:15>
[2017-08-15 11:09] LABS: RBC,URINE 0-1 /HPF; WBC,URINE 0-1 /HPF
[2017-08-15 11:10] LABS: BACTERIA,URINE TRACE /HPF
--- NOTE | 2017-08-15 19:18 | PDOC H&P ---
History of Present Illness Admission Date/PCP: 08/15/17 14:16 PREETHI LEONKRYSTALMirian Patient complains of: Pain all over History of Present Illness: CRISTEL PRESSLEY is a 71 year old male known to my practice who was discharged home from this facility on 08/12/17 following admission for recurrent Non Hodgkin's lymphoma with thrombocytopenia, anemia and elevated LDH and Uric acid levels. He was admitted for concern about recurrence of his NHL with possible tumor lysis. He was seen in consultation by his medical oncologist, Dr. Samaniego , There was intent to have his retro peritoneal mass biopsy on outpatient today. patient reported that upon returning home from [facility] yesterday and eating cereal, he subsequently vomited and this continue with each attempt with eating thereafter. There is associated constipation with last bowel movement on 08/12/17. he localized his pain initiation in the abdomen, radiate into his back and eventually into his legs. Patient reported compliance with prescribed Prednisone upon discharge. Also, he was discharged home on Allopurinol therapy. He denied any flank pain, hematuria, hematemesis, or hematochexia. No epistaxis , headache or dizziness. No itching but felt that his skin is very dry. His initial evaluation in the Ed was remarkable for significant thrombocytopenia, and continued elevation of his serum LDH level. He was treated with IV Dilaudid for pain management. Past Medical History Cardiac Medical History: Reports: Hyperlipidema, Hypertension Endocrine Medical History: Reports: Diabetes Mellitus Type 2 Malignancy Medical History: Reports: Lymphoma - Non Hodgkin's Lymphoma. Psychiatric Medical History: Denies: Depression Social History Smoking Status: Former Smoker Cigarettes Packs Per Day: 15 Number of Years Smokin Last Time Smoked: 1974 Frequency of Alcohol Use: None Hx Recreational Drug Use: No Drugs: None Hx Prescription Drug Abuse: No - Advance Directive Resuscitation Status: Full Code Family History Family History: None Parental Family History Reviewed: Yes Children Family History Reviewed: Yes Sibling(s) Family History Reviewed.: Yes Medication/Allergy Home Medications: Allopurinol [Zyloprim 300 mg Tablet] 300 mg PO DAILY 08/15/17 Amlodipine Besylate [Norvasc 5 mg Tablet] 5 mg PO DAILY 08/15/17 Ammonium Lactate [Lac-Hydrin 12% Lotion 225Gm/Bottle] 1 applic TOP TIDP PRN 12/27 Atorvastatin Calcium [Lipitor 20 mg Tablet] 20 mg PO QHS 08/15/17 Benazepril HCl [Lotensin] 40 mg PO DAILY 08/15/17 Esomeprazole Magnesium [Nexium] 40 mg PO Q6AM 08/15/17 Hydroxyzine HCl [Atarax 25 mg Tablet] 25 mg PO Q6HP PRN 08/15/17 Insulin Lispro [Humalog Kwikpen U-100] 0 units SQ ASDIR PRN 08/15/17 Nateglinide [Starlix] 120 mg PO MEALS 08/15/17 Oxycodone HCl/Acetaminophen [Percocet 5-325 mg Tablet] 1 tab PO Q4HP PRN Pioglitazone HCl/Glimepiride [Pioglitazone-Glimepiride 30-4] 1 tab PO DAILY 12/27 Prednisone [Deltasone 20 mg Tablet] 100 mg PO DAILY 08/15/17 Allergies/Adverse Reactions: clonidine Allergy (Verified 08/15/17 08:51) Review of Systems Constitutional: ABSENT: chills, fever(s), headache(s), weight gain, weight loss Eyes: PRESENT: visual disturbances Ears: ABSENT: hearing changes Nose, Mouth, and Throat: PRESENT: sore throat. ABSENT: as per HPI, headache(s) , mouth pain, vertigo, other Cardiovascular: ABSENT: chest pain, dyspnea on exertion, edema, orthropnea, palpitations Respiratory: ABSENT: cough, hemoptysis Gastrointestinal: PRESENT: abdominal pain. ABSENT: as per HPI, bloating, coffee ground emesis, constipation, diarrhea, dysphagia, heartburn, hematemesis , hematochezia, melena, nausea, vomiting, other Genitourinary: ABSENT: dysuria, hematuria Musculoskeletal: PRESENT: back pain. ABSENT: as per HPI, deformity, joint swelling, muscle weakness, other Integumentary: ABSENT: as per HPI, diaphoresis, erythema, lesions, pruritus, rash, wounds, other Neurological: ABSENT: abnormal gait, abnormal speech, confusion, dizziness, focal weakness, syncope Psychiatric: ABSENT: anxiety, depression, homidical ideation, suicidal ideation Endocrine: ABSENT: cold intolerance, heat intolerance, polydipsia, polyuria Hematologic/Lymphatic: ABSENT: easy bleeding, easy bruising, lymphadenopathy Allergic/Immunologic: ABSENT: seasonal rhinorrhea Physical Exam Vital Signs: Temp Pulse Resp BP Pulse Ox 98.8 F 95 18 146/65 H 98 12/04/17 18:01 08/15/17 18:01 08/15/17 18:01 08/15/17 18:01 08/15/17 18:01 General appearance: PRESENT: no acute distress, obese Head exam: PRESENT: atraumatic, normocephalic Eye exam: PRESENT: conjunctiva pink, EOMI, PERRLA. ABSENT: scleral icterus Throat exam: ABSENT: post pharyngeal erythema, tonsillar erythema, tonsillar exudate, tonsillogmegaly, other Neck exam: PRESENT: full ROM. ABSENT: carotid bruit, JVD, lymphadenopathy, thyromegaly Respiratory exam: PRESENT: clear to auscultation jihan Cardiovascular exam: PRESENT: RRR. ABSENT: diastolic murmur, rubs, systolic murmur Pulses: PRESENT: normal dorsalis pedis pul, +2 pedal pulses bilateral Vascular exam: PRESENT: normal capillary refill. ABSENT: pallor GI/Abdominal exam: PRESENT: normal bowel sounds, soft. ABSENT: distended, guarding, mass, organolmegaly, rebound, tenderness Rectal exam: PRESENT: deferred Gentrourinary exam: ABSENT: ecchymosis, erythema, lacerations, lesions, scrotal swelling, testicular tenderness, urethral discharge, other Extremities exam: ABSENT: pedal edema Musculoskeletal exam: PRESENT: deformity - related to multiple joints involvment with arthritis Neurological exam: PRESENT: alert, awake, oriented to person, oriented to place , oriented to time, oriented to situation, CN II-XII grossly intact. ABSENT: motor sensory deficit Psychiatric exam: PRESENT: appropriate affect, normal mood. ABSENT: homicidal ideation, suicidal ideation Skin exam: PRESENT: dry, intact, warm. ABSENT: cyanosis, rash Results Laboratory Results: I reviewed his laboratory report on [facility] and they form a significant aspect of my decision making. Assessment & Plan - Diagnosis (1) Diffuse large B cell lymphoma Qualifiers: Lymphoma site: unspecified region Qualified Code(s): C83.30 - Diffuse large B-cell lymphoma, unspecified site Is this a current diagnosis for this admission?: Yes Plan: See attending physician orders. (2) Thrombocytopenia Is this a current diagnosis for this admission?: Yes Plan: See attending physician orders. (3) Diabetes mellitus type 2 in obese Is this a current diagnosis for this admission?: Yes Plan: See attending physician orders. (4) HTN (hypertension) Qualifiers: Hypertension type: essential hypertension Qualified Code(s): I10 - Essential (primary) hypertension Is this a current diagnosis for this admission?: Yes Plan: See attending physician orders. (5) HLD (hyperlipidemia) Qualifiers: Hyperlipidemia type: unspecified Qualified Code(s): E78.5 - Hyperlipidemia , unspecified Is this a current diagnosis for this admission?: Yes Plan: See attending physician orders. (6) Osteoarthritis involving multiple joints on both sides of body Is this a current diagnosis for this admission?: Yes Plan: See attending physician orders. - Time Time Spent: 50 to 70 Minutes Medications reviewed and adjusted accordingly: Yes Anticipated discharge: Home Within: Other - Inpatient Certification Based on my medical assessment, after consideration of the patient's comorbidities, presenting symptoms, or acuity I expect that the services needed warrant INPATIENT care.: Yes I certify that my determination is in accordance with my understanding of Medicare's requirements for reasonable and necessary INPATIENT services [42 CFR 412.3e].: Yes Medical Necessity: Need Close Monitoring Due to Risk of Patient Decompensation, Need For IV Fluids, Need For Continuous Telemetry Monitoring, Need for Pain Control, Risk of Complication if Not Cared For in Hospital Post 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
[2017-08-15] MEDS ORDERED: DEXTROSE 50%-WATER 25 GM/50 ML DISP.SYRIN IV PRN ×2 (19:21)
[2017-08-15] MEDS ORDERED: GLUCAGON,HUMAN RECOMB 1 MG INJ IM PRN (19:21)
[2017-08-15] MEDS ORDERED: DEXTROSE 40% GEL 15 GM TUBE PO PRN ×2 (19:21)
[2017-08-15] MEDS ORDERED: NORMAL SALINE 250 ML IV PRN ×2 (19:21)
[2017-08-15] MEDS ORDERED: (PENDING PHARMACY ID) (Hydroxyzine Hcl [Atarax 25 Mg Tablet] 25 MG) PO PRN (19:24)
[2017-08-15] MEDS ORDERED: (PENDING PHARMACY ID) (Ammonium Lactate 1 APPLIC) TOP PRN (19:24)
[2017-08-15] MEDS ORDERED: BISACODYL 10 MG SUPP.RECT PR ONE (19:26)
[2017-08-15] MEDS ORDERED: ONDANSETRON 4 MG TAB.RAPDIS PO PRN (19:28)
[2017-08-15] MEDS ORDERED: HYDROXYZINE HCL 10 MG TABLET PO PRN (19:38)
[2017-08-15] MEDS ORDERED: AMMONIUM LACTATE 12% LOTION 225GM BOTTLE TP PRN (19:49)
[2017-08-16] MEDS: NORMAL SALINE 1000 ML 1,000 ML IV PRN ×2 (00:34→11:36)
[2017-08-16] MEDS: INSULIN LISPRO 100 UNIT/ML 3 ML VIAL SUBCUT PRN ×5 (01:45→20:58)
[2017-08-16] MEDS: ACETAMINOPHEN 325 MG TABLET PO PRN ×2 (04:15→12:12)
[2017-08-16 05:48] LABS: HEMATOCRIT 22.6 % (37.9-51.0); HGB HCT DIFFERENCE 1.4; MEAN CORPUSCULAR HEMOGLOBIN 26.9 pg (27.0-33.4); MEAN CORPUSCULAR HGB CONC 35.4 g/dL (32.0-36.0); MEAN CORPUSCULAR VOLUME 76 fl (80-97); RED BLOOD COUNT 2.97 10^6/uL (4.35-5.55); RED CELL DISTRIBUTION WIDTH 14.1 % (11.5-14.0); WHITE BLOOD COUNT 4.6 10^3/uL (4.0-10.5)
[2017-08-16 05:57] LABS: ALANINE AMINOTRANSFERASE 57 U/L (21-72); ALBUMIN 3.6 g/dL (3.5-5.0); ALKALINE PHOSPHATASE 354 U/L (38-126); ANION GAP 10 (5-19); ASPARTATE AMINO TRANSFERASE 305 U/L (17-59); BILIRUBIN,DIRECT 0.4 mg/dL (0.0-0.4); BILIRUBIN,TOTAL 1.1 mg/dL (0.2-1.3); BLOOD UREA NITROGEN 21 mg/dL (7-20); CALCIUM 9.2 mg/dL (8.4-10.2); CARBON DIOXIDE 30 mmol/L (22-30); CHLORIDE 95 mmol/L (98-107); CREATININE RESULT 0.93 mg/dL (0.52-1.25); GLUCOSE 143 mg/dL (75-110); POTASSIUM 4.2 mmol/L (3.6-5.0); SODIUM 135.1 mmol/L (137-145)
[2017-08-16] MEDS: LANSOPRAZOLE 30 MG TAB.RAP.DR PO SCH (06:41)
[2017-08-16 06:46] LABS: ABSOLUTE EOSINOPHILS# (MANUAL) 0.1 10^3/uL (0.0-0.6); BAND NEUTROPHILS % (MANUAL) 10 % (3-5); BASOPHILS % (MANUAL) 0 % (0-2); EOSINOPHILS % (MANUAL) 2 % (0-6); LYMPHOCYTES % (MANUAL) 27 % (13-45); NUCLEATED RED BLOOD CELLS 1 /100 WBC (0); TOTAL CELLS COUNTED 100
[2017-08-16 06:48] LABS: ANISOCYTOSIS SLIGHT; MICROCYTOSIS SLIGHT
[2017-08-16 06:49] LABS: POLYCHROMASIA SLIGHT
[2017-08-16] MEDS ORDERED: (PENDING PHARMACY ID) (Nateglinide [Starlix] 120 MG) PO SCH (08:00)
[2017-08-16 09:26] LABS: HEMATOCRIT 22.5 % (37.9-51.0); HGB HCT DIFFERENCE 1.2; MEAN CORPUSCULAR VOLUME 77 fl (80-97); RED BLOOD COUNT 2.92 10^6/uL (4.35-5.55); RED CELL DISTRIBUTION WIDTH 13.9 % (11.5-14.0); WHITE BLOOD COUNT 3.9 10^3/uL (4.0-10.5)
[2017-08-16] MEDS: BENAZEPRIL HCL 20 MG TABLET PO SCH (09:34)
[2017-08-16] MEDS: DOCUSATE SODIUM 100 MG CAPSULE PO SCH (09:34)
[2017-08-16] MEDS: ALLOPURINOL 300 MG TABLET PO SCH (09:35)
[2017-08-16] MEDS: PIOGLITAZONE HCL 30 MG TABLET PO SCH (09:35)
[2017-08-16] MEDS: GLIMEPIRIDE 4 MG TABLET PO SCH (09:35)
[2017-08-16] MEDS: AMLODIPINE BESYLATE 5 MG TABLET PO SCH (09:36)
[2017-08-16] MEDS: NATEGLINIDE 60 MG TABLET PO SCH ×3 (09:36→18:41)
[2017-08-16] MEDS: PREDNISONE 20 MG TABLET PO SCH (09:36)
[2017-08-16] MEDS ORDERED: PREDNISONE 20 MG TABLET PO SCH (10:00)
[2017-08-16] MEDS ORDERED: (PENDING PHARMACY ID) (Benazepril Hcl [Lotensin] 40 MG) PO SCH (10:00)
[2017-08-16] MEDS ORDERED: GLIMEPIRIDE PO SCH (10:00)
[2017-08-16] MEDS ORDERED: PIOGLITAZONE PO SCH (10:00)
[2017-08-16] MEDS ORDERED: [UNRECOGNIZED DRUG - OTHER] PO SCH (10:00)
[2017-08-16 10:06] LABS: ABSOLUTE EOSINOPHILS# (MANUAL) 0.2 10^3/uL (0.0-0.6); EOSINOPHILS % (MANUAL) 4 % (0-6); TOTAL CELLS COUNTED 100
[2017-08-16 10:07] LABS: MICROCYTOSIS SLIGHT; OVALOCYTES SLIGHT; TOXIC GRANULATION 1+
[2017-08-16 10:08] LABS: SCHISTOCYTES SLIGHT; TEAR DROP CELLS SLIGHT
[2017-08-16 10:17] LABS: BAND NEUTROPHILS % (MANUAL) 6 % (3-5); BASOPHILS % (MANUAL) 0 % (0-2); LYMPHOCYTES % (MANUAL) 24 % (13-45); NUCLEATED RED BLOOD CELLS 4 /100 WBC (0)
[2017-08-16 10:28] LABS: HEMOGLOBIN 7.9 g/dL (13.5-17.0)
--- NOTE | 2017-08-16 12:08 | Physician Advisory Note ---
Physician Advisor ProgressNote .: [facility], I have reviewed the medical record for this patient. Physician Advisor Statement: Please consider documentin. "pancytopenia, likely due to ____" 2. Medical necessity of 2nd MN (08/16): "Hemodynamic instability", "Pt has persistent & worsening tachycardia", "new fever", "worsening leukopenia", "I AM CONCERNED ABOUT ", "High risk for ____ in this setting", ... Status: with documentation of #2 above for keeping pt in hospital 08/16, this Medicare pt is appropriate for change to Inpt status. Thanks! CK
[2017-08-16 12:25] LABS: PATH REVIEW PATHOLOGIST REVIEWED
--- NOTE | 2017-08-16 19:23 | PDOC PROGRESS REPORT ---
Subjective Progress Note for:: 08/16/17 Subjective:: His thrombocytopenia persist with need for transfusion of total 3 bags of pheresis platelet. There was associated episodes of elevated temperature that may be related to his underlying Lymphoma. Attempt at biopsy is limited due to his thrombocytopenia. I discussed with his medical oncologist, Dr Samaniego and arrangement will be made to start him on his last regimen therapy with hope that his platelet count will improve and allow biopsy to confirm recurrent disease state. Patient reported episodes of nausea but no vomiting. Oral intake remain poor and minimal bowel movement. No chest pain or difficulty with breathing. His vitals continue to show persistent tachycardia and elevated blood pressure that are concerning for active tumor lysis with associated hemodynamic instability. 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 ABSENT: scleral icterus Cardiovascular exam: PRESENT: RRR, +S1, +S2, tachycardia Vascular exam: PRESENT: normal capillary refill. ABSENT: pallor GI/Abdominal exam: PRESENT: normal bowel sounds, soft. ABSENT: distended, guarding, mass, organolmegaly, rebound, tenderness Extremities exam: ABSENT: pedal edema Musculoskeletal exam: PRESENT: normal inspection Neurological exam: PRESENT: alert, awake, oriented to person, oriented to place , oriented to time, oriented to situation, CN II-XII grossly intact. ABSENT: motor sensory deficit Psychiatric exam: PRESENT: appropriate affect, normal mood. ABSENT: homicidal ideation, suicidal ideation Skin exam: PRESENT: dry, intact, warm. ABSENT: cyanosis, rash Results Laboratory Results: 08/16/17 09:06 08/16/17 04:46 08/15/17 08/15/17 08/16/17 14:36 19:37 04:46 WBC 4.6 RBC 2.97 L Hgb 8.0 L Hct 22.6 L MCV 76 L MCH 26.9 L MCHC 35.4 RDW 14.1 H Plt Count 16 L* Seg Neutrophils % Not Reportable Lymphocytes % Not Reportable Monocytes % Not Reportable Eosinophils % Not Reportable Basophils % Not Reportable Absolute Neutrophils Not Reportable Absolute Lymphocytes Not Reportable Absolute Monocytes Not Reportable Absolute Eosinophils Not Reportable Absolute Basophils Not Reportable Sodium Potassium Chloride Carbon Dioxide Anion Gap BUN Creatinine Est GFR ( Amer) Est GFR (Non-Af Amer) Glucose Calcium Total Bilirubin AST ALT Alkaline Phosphatase Total Protein Albumin Stool Occult Blood NEGATIVE Blood Type A POSITIVE 08/16/17 08/16/17 04:46 09:06 WBC 3.9 L RBC 2.92 L Hgb 7.9 L Hct 22.5 L MCV 77 L MCH 27.0 MCHC 35.0 RDW 13.9 Plt Count 24 L* Seg Neutrophils % Not Reportable Lymphocytes % Not Reportable Monocytes % Not Reportable Eosinophils % Not Reportable Basophils % Not Reportable Absolute Neutrophils Not Reportable Absolute Lymphocytes Not Reportable Absolute Monocytes Not Reportable Absolute Eosinophils Not Reportable Absolute Basophils Not Reportable Sodium 135.1 L Potassium 4.2 Chloride 95 L Carbon Dioxide 30 Anion Gap 10 BUN 21 H Creatinine 0.93 Est GFR ( Amer) > 60 Est GFR (Non-Af Amer) > 60 Glucose 143 H Calcium 9.2 Total Bilirubin 1.1 AST 305 H ALT 57 Alkaline Phosphatase 354 H Total Protein 6.0 L Albumin 3.6 Stool Occult Blood Blood Type Assessment & Plan - Diagnosis (1) Diffuse large B cell lymphoma Qualifiers: Lymphoma site: extranodal excluding spleen and other solid organs Qualified Code(s): C83.39 - Diffuse large B-cell lymphoma, extranodal and solid organ sites Is this a current diagnosis for this admission?: Yes Plan: Patient is prepared for possible commencement of chemotherapy tomorrow. (2) Thrombocytopenia Is this a current diagnosis for this admission?: Yes (3) Diabetes mellitus type 2 in obese Is this a current diagnosis for this admission?: Yes (4) HTN (hypertension) Qualifiers: Hypertension type: essential hypertension Qualified Code(s): I10 - Essential (primary) hypertension Is this a current diagnosis for this admission?: Yes (5) HLD (hyperlipidemia) Qualifiers: Hyperlipidemia type: unspecified Qualified Code(s): E78.5 - Hyperlipidemia , unspecified Is this a current diagnosis for this admission?: Yes (6) Osteoarthritis involving multiple joints on both sides of body Is this a current diagnosis for this admission?: Yes (7) Pancytopenia Is this a current diagnosis for this admission?: Yes Plan: Related to his underlying lymphoma. Monitor CBC indices and transfuse PRBC or Platelet as needed. - Time Time Spent with patient: 35 or more minutes Medications reviewed and adjusted accordingly: Yes Anticipated discharge: Home with Homehealth Within: Other - Inpatient Certification Based on my medical assessment, after consideration of the patient's comorbidities, presenting symptoms, or acuity I expect that the services needed warrant INPATIENT care.: Yes I certify that my determination is in accordance with my understanding of Medicare's requirements for reasonable and necessary INPATIENT services [42 CFR 412.3e].: Yes Medical Necessity: Need Close Monitoring Due to Risk of Patient Decompensation, Need For IV Fluids, Need For Continuous Telemetry Monitoring, Risk of Complication if Not Cared For in Hospital Post Hospital Care: D/C Dealer Sales Manager 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
[2017-08-17] MEDS: LANSOPRAZOLE 30 MG TAB.RAP.DR PO SCH (05:30)
[2017-08-17 07:14] LABS: HEMATOCRIT 22.7 % (37.9-51.0); MEAN CORPUSCULAR HEMOGLOBIN 26.5 pg (27.0-33.4); MEAN CORPUSCULAR HGB CONC 34.7 g/dL (32.0-36.0); MEAN CORPUSCULAR VOLUME 76 fl (80-97); RED BLOOD COUNT 2.99 10^6/uL (4.35-5.55); RED CELL DISTRIBUTION WIDTH 14.3 % (11.5-14.0); WHITE BLOOD COUNT 3.6 10^3/uL (4.0-10.5)
[2017-08-17 07:25] LABS: ALANINE AMINOTRANSFERASE 70 U/L (21-72); ALBUMIN 3.6 g/dL (3.5-5.0); ALKALINE PHOSPHATASE 362 U/L (38-126); ANION GAP 10 (5-19); ASPARTATE AMINO TRANSFERASE 213 U/L (17-59); BILIRUBIN,DIRECT 0.4 mg/dL (0.0-0.4); BILIRUBIN,TOTAL 1.1 mg/dL (0.2-1.3); BLOOD UREA NITROGEN 20 mg/dL (7-20); CALCIUM 9.6 mg/dL (8.4-10.2); CARBON DIOXIDE 30 mmol/L (22-30); CHLORIDE 99 mmol/L (98-107); CREATININE RESULT 0.85 mg/dL (0.52-1.25); GLUCOSE 96 mg/dL (75-110); POTASSIUM 4.2 mmol/L (3.6-5.0); SODIUM 139.1 mmol/L (137-145)
[2017-08-17 07:26] LABS: PROTHROMBIN TIME 14.4 SEC (11.4-15.4)
[2017-08-17 07:27] LABS: PARTIAL THROMBOPLASTIN TIME 32.3 SEC (23.5-35.8)
[2017-08-17 07:44] LABS: BAND NEUTROPHILS % (MANUAL) 3 % (3-5); BASOPHILS % (MANUAL) 0 % (0-2); EOSINOPHILS % (MANUAL) 0 % (0-6); LYMPHOCYTES % (MANUAL) 26 % (13-45); NUCLEATED RED BLOOD CELLS 1 /100 WBC (0); TOTAL CELLS COUNTED 100
[2017-08-17 07:47] LABS: ANISOCYTOSIS SLIGHT; HYPOCHROMASIA 1+; MICROCYTOSIS SLIGHT; POLYCHROMASIA SLIGHT
[2017-08-17 07:50] LABS: HEMOGLOBIN 7.9 g/dL (13.5-17.0)
[2017-08-17] MEDS ORDERED: ACETAMINOPHEN 325 MG TABLET PO PRN (07:57)
[2017-08-17] MEDS ORDERED: DEXAMETHASONE 4 MG TABLET PO PRN (07:58)
[2017-08-17] MEDS ORDERED: DIPHENHYDRAMINE HCL 50 MG/ML VIAL IV PRN ×2 (07:59→08:42)
[2017-08-17] MEDS ORDERED: RITUXIMAB IV PRN (08:08)
[2017-08-17] MEDS ORDERED: NORMAL SALINE IV PRN (08:08)
[2017-08-17] MEDS ORDERED: DEXAMETHASONE SOD PHOS INJ 10 MG/1 ML VIAL IV PRN (08:41)
[2017-08-17] MEDS: PIOGLITAZONE HCL 30 MG TABLET PO SCH (09:47)
[2017-08-17] MEDS: GLIMEPIRIDE 4 MG TABLET PO SCH (09:47)
[2017-08-17] MEDS: ALLOPURINOL 300 MG TABLET PO SCH (09:47)
[2017-08-17] MEDS: DOCUSATE SODIUM 100 MG CAPSULE PO SCH (09:47)
[2017-08-17] MEDS: NATEGLINIDE 60 MG TABLET PO SCH ×3 (09:48→17:52)
[2017-08-17] MEDS: AMLODIPINE BESYLATE 5 MG TABLET PO SCH (09:48)
[2017-08-17] MEDS: PREDNISONE 20 MG TABLET PO SCH (09:49)
[2017-08-17] MEDS: INSULIN LISPRO 100 UNIT/ML 3 ML VIAL SUBCUT PRN ×3 (12:42→22:45)
--- NOTE | 2017-08-17 17:40 | PDOC PROGRESS REPORT ---
Subjective Subjective:: Patient had first dose of Rituxan infusion earlier today. He denied any nausea or vomiting. No fever or chills. No chest pain of difficulty with breathing. He is schedule to start on CHOP regimen tomorrow. His schedule retroperitoneal mass CT guided biopsy has been postpone until platelet count is above threshold of 50,000. Appetite and PO intake improving. Patient reported worsening left knee joint pain. No swelling or localized warmth. 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 ABSENT: scleral icterus Cardiovascular exam: PRESENT: RRR, +S1, +S2, tachycardia Vascular exam: PRESENT: normal capillary refill. ABSENT: pallor GI/Abdominal exam: PRESENT: normal bowel sounds, soft. ABSENT: distended, guarding, mass, organomegaly, rebound, tenderness Extremities exam: ABSENT: pedal edema Musculoskeletal exam: PRESENT: normal inspection Neurological exam: PRESENT: alert, awake, oriented to person, oriented to place , oriented to time, oriented to situation, CN II-XII grossly intact. ABSENT: motor sensory deficit Psychiatric exam: PRESENT: appropriate affect, normal mood. ABSENT: homicidal ideation, suicidal ideation Skin exam: PRESENT: dry, intact, warm. ABSENT: cyanosis, rash Results Laboratory Results: 08/17/17 06:37 08/17/17 06:37 08/17/17 08/17/17 06:37 06:37 WBC 3.6 L RBC 2.99 L Hgb 7.9 L Hct 22.7 L MCV 76 L MCH 26.5 L MCHC 34.7 RDW 14.3 H Plt Count 19 L* Seg Neutrophils % Not Reportable Lymphocytes % Not Reportable Monocytes % Not Reportable Eosinophils % Not Reportable Basophils % Not Reportable Absolute Neutrophils Not Reportable Absolute Lymphocytes Not Reportable Absolute Monocytes Not Reportable Absolute Eosinophils Not Reportable Absolute Basophils Not Reportable Sodium 139.1 Potassium 4.2 Chloride 99 Carbon Dioxide 30 Anion Gap 10 BUN 20 Creatinine 0.85 Est GFR ( Amer) > 60 Est GFR (Non-Af Amer) > 60 Glucose 96 Calcium 9.6 Total Bilirubin 1.1 AST 213 H ALT 70 Alkaline Phosphatase 362 H Total Protein 6.0 L Albumin 3.6 Assessment & Plan - Diagnosis (1) Diffuse large B cell lymphoma Qualifiers: Lymphoma site: extranodal excluding spleen and other solid organs Qualified Code(s): C83.39 - Diffuse large B-cell lymphoma, extranodal and solid organ sites Is this a current diagnosis for this admission?: Yes (2) Thrombocytopenia Is this a current diagnosis for this admission?: Yes (3) Diabetes mellitus type 2 in obese Is this a current diagnosis for this admission?: Yes (4) HTN (hypertension) Qualifiers: Hypertension type: essential hypertension Qualified Code(s): I10 - Essential (primary) hypertension Is this a current diagnosis for this admission?: Yes (5) HLD (hyperlipidemia) Qualifiers: Hyperlipidemia type: unspecified Qualified Code(s): E78.5 - Hyperlipidemia , unspecified Is this a current diagnosis for this admission?: Yes (6) Osteoarthritis involving multiple joints on both sides of body Is this a current diagnosis for this admission?: Yes (7) Pancytopenia Is this a current diagnosis for this admission?: Yes - Time Time Spent with patient: 25-34 minutes Medications reviewed and adjusted accordingly: Yes Anticipated discharge: Home Within: Other - Inpatient Certification Based on my medical assessment, after consideration of the patient's comorbidities, presenting symptoms, or acuity I expect that the services needed warrant INPATIENT care.: Yes I certify that my determination is in accordance with my understanding of Medicare's requirements for reasonable and necessary INPATIENT services [42 CFR 412.3e].: Yes Medical Necessity: Need Close Monitoring Due to Risk of Patient Decompensation, Need For IV Fluids, Need For Continuous Telemetry Monitoring, Need for Pain Control, Risk of Complication if Not Cared For in Hospital Post Hospital Care: D/C Catalogue And Special Products Manager Documentation - Plan Summary Plan Summary: Start on Percocet 5/325 mg 1 tablet po [id number] for knee pain management. Encourage ambulation on the floor. Continue all other current medication management. Repeat CBC with diff and CMP in AM
[2017-08-17] MEDS: BENAZEPRIL HCL 20 MG TABLET PO SCH (17:48)
[2017-08-17] MEDS: OXYCODONE-ACETAMINOPHEN 5-325 MG TABLET PO PRN (17:51)
--- NOTE | 2017-08-17 18:23 | PROGRESS NOTE E ---
Progress Note NAME: CRISTEL PRESSLEY : 1945 AGE: 71Y DATE: 08/17/2017 ROOM: 413 SUBJECTIVE: The patient was seen at his bedside. He completed day 1 of our CHOP today. He tolerated the chemotherapy fairly well. He was seen sitting at the bedside. He states that he feels well. PLAN: My plan is to continue with day 2 tomorrow. He will remain on the prednisone for 5 days, as well, as part of the regimen. His next dose of chemotherapy will be in about a month. I will plan on repeating his CBCs weekly following his discharge from the hospital. I will see him back as an outpatient, hopefully, if he is discharged over the weekend, next week. I thank you for allowing me to be part of his care during his hospitalization. DICTATING PHYSICIAN: LARRY ROWE M.D. [id number] PHY#: [id number] ID: [id number] JOB#: [id number] ACCT: [id number] cc:LARRY ROWE M.D. >
[2017-08-18] MEDS: NORMAL SALINE 1000 ML 1,000 ML IV PRN (00:40)
[2017-08-18] MEDS: LANSOPRAZOLE 30 MG TAB.RAP.DR PO SCH (05:31)
[2017-08-18] MEDS ORDERED: DOXORUBICIN HCL 100 MG in SYRINGE, DISPOSABLE, 1 EACH IV PRN (08:00)
[2017-08-18] MEDS ORDERED: NORMAL SALINE 250 ML IV PRN (08:00)
[2017-08-18] MEDS ORDERED: VINCRISTINE SULFATE 2 MG in SYRINGE, DISPOSABLE, 1 EACH IV PRN (08:00)
[2017-08-18] MEDS ORDERED: DEXTROSE 5% IV PRN ×2 (08:00)
[2017-08-18] MEDS ORDERED: FOSAPREPITANT DIMEGLUMINE 150 MG in NORMAL SALINE 150 ML IV PRN (08:00)
[2017-08-18] MEDS ORDERED: CYCLOPHOSPHAMIDE IV PRN ×2 (08:00)
[2017-08-18] MEDS ORDERED: WATER IV PRN ×2 (08:00)
[2017-08-18] MEDS ORDERED: ONDANSETRON HCL/PF 16 MG, DEXAMETHASONE SOD PHOSPHATE 20 MG in NORMAL SALINE 50 ML IV PRN (08:00)
[2017-08-18] MEDS: INSULIN LISPRO 100 UNIT/ML 3 ML VIAL SUBCUT PRN ×4 (08:55→21:38)
[2017-08-18] MEDS: NATEGLINIDE 60 MG TABLET PO SCH ×3 (08:56→18:12)
[2017-08-18] MEDS: GLIMEPIRIDE 4 MG TABLET PO SCH (10:23)
[2017-08-18] MEDS: PIOGLITAZONE HCL 30 MG TABLET PO SCH (10:23)
[2017-08-18] MEDS: AMLODIPINE BESYLATE 5 MG TABLET PO SCH (10:23)
[2017-08-18] MEDS: ALLOPURINOL 300 MG TABLET PO SCH (10:23)
[2017-08-18] MEDS: BENAZEPRIL HCL 20 MG TABLET PO SCH (10:23)
[2017-08-18] MEDS: DOCUSATE SODIUM 100 MG CAPSULE PO SCH (10:24)
[2017-08-18] MEDS: PREDNISONE 20 MG TABLET PO SCH (10:24)
[2017-08-18] MEDS: OXYCODONE-ACETAMINOPHEN 5-325 MG TABLET PO PRN (10:51)
[2017-08-18 13:38] LABS: FREE KAPPA LIGHT CHAINS 26.4 mg/L (3.3-19.4); FREE LAMBDA LIGHT CHAINS 8.5 mg/L (5.7-26.3)
[2017-08-18 14:55] LABS: KAPPA LAMBDA RATIO 3.11 (0.26-1.65)
--- NOTE | 2017-08-18 19:20 | PDOC PROGRESS REPORT ---
Subjective Progress Note for:: 08/18/17 Subjective:: Patient denied any fever, nausea, vomiting or abdominal pain. No chest pain or difficulty with breathing. 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 ABSENT: scleral icterus Cardiovascular exam: PRESENT: RRR, +S1, +S2, tachycardia Vascular exam: PRESENT: normal capillary refill. ABSENT: pallor GI/Abdominal exam: PRESENT: normal bowel sounds, soft. ABSENT: distended, guarding, mass, organomegaly, rebound, tenderness Extremities exam: ABSENT: pedal edema Musculoskeletal exam: PRESENT: normal inspection Neurological exam: PRESENT: alert, awake, oriented to person, oriented to place , oriented to time, oriented to situation, CN II-XII grossly intact. ABSENT: motor sensory deficit Psychiatric exam: PRESENT: appropriate affect, normal mood. ABSENT: homicidal ideation, suicidal ideation Skin exam: PRESENT: dry, intact, warm. ABSENT: cyanosis, rash Results Laboratory Results: 08/17/17 06:37 08/17/17 06:37 Assessment & Plan - Diagnosis (1) Diffuse large B cell lymphoma Qualifiers: Lymphoma site: extranodal excluding spleen and other solid organs Qualified Code(s): C83.39 - Diffuse large B-cell lymphoma, extranodal and solid organ sites Is this a current diagnosis for this admission?: Yes (2) Thrombocytopenia Is this a current diagnosis for this admission?: Yes (3) Diabetes mellitus type 2 in obese Is this a current diagnosis for this admission?: Yes (4) HTN (hypertension) Qualifiers: Hypertension type: essential hypertension Qualified Code(s): I10 - Essential (primary) hypertension Is this a current diagnosis for this admission?: Yes (5) HLD (hyperlipidemia) Qualifiers: Hyperlipidemia type: unspecified Qualified Code(s): E78.5 - Hyperlipidemia , unspecified Is this a current diagnosis for this admission?: Yes (6) Osteoarthritis involving multiple joints on both sides of body Is this a current diagnosis for this admission?: Yes (7) Pancytopenia Is this a current diagnosis for this admission?: Yes - Time Time Spent with patient: 25-34 minutes Medications reviewed and adjusted accordingly: Yes Anticipated discharge: Home Within: within 24 hours - Inpatient Certification Based on my medical assessment, after consideration of the patient's comorbidities, presenting symptoms, or acuity I expect that the services needed warrant INPATIENT care.: Yes I certify that my determination is in accordance with my understanding of Medicare's requirements for reasonable and necessary INPATIENT services [42 CFR 412.3e].: Yes Medical Necessity: Need Close Monitoring Due to Risk of Patient Decompensation, Need For IV Fluids, Need for Pain Control, Risk of Complication if Not Cared For in Hospital Post Hospital Care: D/C Label Printing Machinist Documentation - Plan Summary Plan Summary: Continue current medication management. I had discussion with him and spouse at bedside regarding concern about hyperglycemia and relate steroid therapy. I will make adjustment to diabetes mellitus management with sliding scale Humalog or Novolog insulin coverage upon discharge.
[2017-08-19] MEDS: LANSOPRAZOLE 30 MG TAB.RAP.DR PO SCH (05:37)
[2017-08-19] MEDS: AMLODIPINE BESYLATE 5 MG TABLET PO SCH (11:19)
[2017-08-19] MEDS: BENAZEPRIL HCL 20 MG TABLET PO SCH (11:19)
[2017-08-19] MEDS: GLIMEPIRIDE 4 MG TABLET PO SCH (11:19)
[2017-08-19] MEDS: INSULIN LISPRO 100 UNIT/ML 3 ML VIAL SUBCUT PRN ×4 (11:20→22:08)
[2017-08-19] MEDS: DOCUSATE SODIUM 100 MG CAPSULE PO SCH (11:21)
[2017-08-19] MEDS: ALLOPURINOL 300 MG TABLET PO SCH (11:22)
[2017-08-19] MEDS: PREDNISONE 20 MG TABLET PO SCH (11:22)
[2017-08-19] MEDS: NATEGLINIDE 60 MG TABLET PO SCH ×3 (11:23→16:46)
[2017-08-19] MEDS: PIOGLITAZONE HCL 30 MG TABLET PO SCH (11:24)
[2017-08-19] MEDS: NORMAL SALINE 1000 ML 1,000 ML IV PRN (11:28)
[2017-08-19 15:53] LABS: HEMATOCRIT 18.7 % (37.9-51.0); HGB HCT DIFFERENCE 1.1; MEAN CORPUSCULAR HEMOGLOBIN 26.8 pg (27.0-33.4); MEAN CORPUSCULAR HGB CONC 35.1 g/dL (32.0-36.0); MEAN CORPUSCULAR VOLUME 76 fl (80-97); RED BLOOD COUNT 2.45 10^6/uL (4.35-5.55); RED CELL DISTRIBUTION WIDTH 13.8 % (11.5-14.0)
[2017-08-19 15:56] LABS: ALANINE AMINOTRANSFERASE 60 U/L (21-72); ALBUMIN 3.2 g/dL (3.5-5.0); ALKALINE PHOSPHATASE 255 U/L (38-126); ANION GAP 10 (5-19); ASPARTATE AMINO TRANSFERASE 55 U/L (17-59); BILIRUBIN,DIRECT 0.3 mg/dL (0.0-0.4); BILIRUBIN,TOTAL 0.8 mg/dL (0.2-1.3); BLOOD UREA NITROGEN 25 mg/dL (7-20); CALCIUM 8.5 mg/dL (8.4-10.2); CARBON DIOXIDE 23 mmol/L (22-30); CHLORIDE 99 mmol/L (98-107); CREATININE RESULT 0.82 mg/dL (0.52-1.25); GLUCOSE 322 mg/dL (75-110); POTASSIUM 4.5 mmol/L (3.6-5.0); SODIUM 131.9 mmol/L (137-145); TOTAL PROTEIN 5.2 g/dL (6.3-8.2)
[2017-08-19 16:20] LABS: BAND NEUTROPHILS % (MANUAL) 2 % (3-5); BASOPHILS % (MANUAL) 0 % (0-2); EOSINOPHILS % (MANUAL) 0 % (0-6); LYMPHOCYTES % (MANUAL) 10 % (13-45); TOTAL CELLS COUNTED 50
[2017-08-19 16:30] LABS: OVALOCYTES SLIGHT; POIKILOCYTOSIS SLIGHT; POLYCHROMASIA SLIGHT
[2017-08-19 16:31] LABS: MICROCYTOSIS SLIGHT
[2017-08-19] MEDS ORDERED: NORMAL SALINE 250 ML IV PRN ×2 (16:36)
[2017-08-19 16:40] LABS: WHITE BLOOD COUNT 1.2 10^3/uL (4.0-10.5)
[2017-08-19 16:41] LABS: HEMOGLOBIN 6.6 g/dL (13.5-17.0); PLATELET ESTIMATE 2 10^3/uL (150-450)
--- NOTE | 2017-08-19 17:26 | PDOC PROGRESS REPORT ---
Subjective Progress Note for:: 08/19/17 Subjective:: Patient denied fever or chills. No abnormal bleeding. No chest pain or difficulty with breathing. No nausea, vomiting, or abdominal pain. No oral pain or difficulty with swallowing. Remain on IV fluid support and Prednisone therapy as part of his CHOP management. 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 ABSENT: scleral icterus Cardiovascular exam: PRESENT: RRR, +S1, +S2, tachycardia Vascular exam: PRESENT: normal capillary refill. ABSENT: pallor GI/Abdominal exam: PRESENT: normal bowel sounds, soft. ABSENT: distended, guarding, mass, organomegaly, rebound, tenderness Extremities exam: ABSENT: pedal edema Musculoskeletal exam: PRESENT: normal inspection Neurological exam: PRESENT: alert, awake, oriented to person, oriented to place , oriented to time, oriented to situation, CN II-XII grossly intact. ABSENT: motor sensory deficit Psychiatric exam: PRESENT: appropriate affect, normal mood. ABSENT: homicidal ideation, suicidal ideation Skin exam: PRESENT: dry, intact, warm. ABSENT: cyanosis, rash Results Laboratory Results: 08/19/17 15:20 08/19/17 15:20 08/19/17 08/19/17 15:20 15:20 WBC 1.2 L* D RBC 2.45 L Hgb 6.6 L Hct 18.7 L MCV 76 L MCH 26.8 L MCHC 35.1 RDW 13.8 Plt Count 3 L* D Seg Neutrophils % Not Reportable Lymphocytes % Not Reportable Monocytes % Not Reportable Eosinophils % Not Reportable Basophils % Not Reportable Absolute Neutrophils Not Reportable Absolute Lymphocytes Not Reportable Absolute Monocytes Not Reportable Absolute Eosinophils Not Reportable Absolute Basophils Not Reportable Sodium 131.9 L Potassium 4.5 Chloride 99 Carbon Dioxide 23 Anion Gap 10 BUN 25 H Creatinine 0.82 Est GFR ( Amer) > 60 Est GFR (Non-Af Amer) > 60 Glucose 322 H Calcium 8.5 Total Bilirubin 0.8 AST 55 ALT 60 Alkaline Phosphatase 255 H Total Protein 5.2 L Albumin 3.2 L Assessment & Plan - Diagnosis (1) Diffuse large B cell lymphoma Qualifiers: Lymphoma site: extranodal excluding spleen and other solid organs Qualified Code(s): C83.39 - Diffuse large B-cell lymphoma, extranodal and solid organ sites Is this a current diagnosis for this admission?: Yes (2) Thrombocytopenia Is this a current diagnosis for this admission?: Yes (3) Diabetes mellitus type 2 in obese Is this a current diagnosis for this admission?: Yes (4) HTN (hypertension) Qualifiers: Hypertension type: essential hypertension Qualified Code(s): I10 - Essential (primary) hypertension Is this a current diagnosis for this admission?: Yes (5) HLD (hyperlipidemia) Qualifiers: Hyperlipidemia type: unspecified Qualified Code(s): E78.5 - Hyperlipidemia , unspecified Is this a current diagnosis for this admission?: Yes (6) Osteoarthritis involving multiple joints on both sides of body Is this a current diagnosis for this admission?: Yes (7) Pancytopenia Is this a current diagnosis for this admission?: Yes - Time Time Spent with patient: 35 or more minutes Medications reviewed and adjusted accordingly: Yes Anticipated discharge: Home Within: Other - Inpatient Certification Based on my medical assessment, after consideration of the patient's comorbidities, presenting symptoms, or acuity I expect that the services needed warrant INPATIENT care.: Yes I certify that my determination is in accordance with my understanding of Medicare's requirements for reasonable and necessary INPATIENT services [42 CFR 412.3e].: Yes Medical Necessity: Need Close Monitoring Due to Risk of Patient Decompensation, Need For IV Fluids, Need For Continuous Telemetry Monitoring, Risk of Complication if Not Cared For in Hospital Post Hospital Care: D/C Bus Or Truck Garage Mechanic Documentation - Plan Summary Plan Summary: Patient will be transfused 3 bags of pheresis platelets and 2 units of PRBC. Continue with all other current medication management. I had extensive discussion with patient regarding intensity need for his care and guided prognosis. He did demonstrate some refusal of care earlier today but is more amenable to proposed transfusion as noted above. Spouse was at bedside during my visit today. I did emphasized fall precautions and monitor for any spontaneous bleeding. Obtain post transfusion lab evaluation in the morning.
[2017-08-20] MEDS: NORMAL SALINE 1000 ML 1,000 ML IV PRN ×3 (06:28→22:53)
[2017-08-20] MEDS: LANSOPRAZOLE 30 MG TAB.RAP.DR PO SCH (06:29)
[2017-08-20 07:15] LABS: HEMATOCRIT 23.7 % (37.9-51.0); HEMOGLOBIN 8.5 g/dL (13.5-17.0); HGB HCT DIFFERENCE 1.8; MEAN CORPUSCULAR HEMOGLOBIN 27.5 pg (27.0-33.4); MEAN CORPUSCULAR HGB CONC 35.6 g/dL (32.0-36.0); MEAN CORPUSCULAR VOLUME 77 fl (80-97); RED BLOOD COUNT 3.08 10^6/uL (4.35-5.55); RED CELL DISTRIBUTION WIDTH 14.4 % (11.5-14.0)
[2017-08-20 07:46] LABS: BAND NEUTROPHILS % (MANUAL) 10 % (3-5); BASOPHILS % (MANUAL) 0 % (0-2); EOSINOPHILS % (MANUAL) 0 % (0-6); LYMPHOCYTES % (MANUAL) 20 % (13-45); TOTAL CELLS COUNTED 50
[2017-08-20 07:48] LABS: HYPOCHROMASIA SLIGHT; MICROCYTOSIS 1+; TOXIC GRANULATION 1+
[2017-08-20 07:52] LABS: WHITE BLOOD COUNT 1.4 10^3/uL (4.0-10.5)
[2017-08-20] MEDS: INSULIN LISPRO 100 UNIT/ML 3 ML VIAL SUBCUT PRN ×5 (08:41→23:39)
[2017-08-20] MEDS: NATEGLINIDE 60 MG TABLET PO SCH ×3 (08:41→16:45)
[2017-08-20] MEDS: PIOGLITAZONE HCL 30 MG TABLET PO SCH (10:35)
[2017-08-20] MEDS: AMLODIPINE BESYLATE 5 MG TABLET PO SCH (10:35)
[2017-08-20] MEDS: BENAZEPRIL HCL 20 MG TABLET PO SCH (10:35)
[2017-08-20] MEDS: GLIMEPIRIDE 4 MG TABLET PO SCH (10:35)
[2017-08-20] MEDS: PREDNISONE 20 MG TABLET PO SCH (10:35)
[2017-08-20] MEDS: ALLOPURINOL 300 MG TABLET PO SCH (10:35)
[2017-08-20] MEDS: DOCUSATE SODIUM 100 MG CAPSULE PO SCH (10:36)
[2017-08-20] MEDS ORDERED: EPOETIN ALFA INJ 20,000 UNIT/1 ML VIAL (ONCOLOGY) SUBCUT ONE (11:10)
--- NOTE | 2017-08-20 11:10 | PDOC PROGRESS REPORT ---
Subjective Progress Note for:: 08/20/17 Subjective:: Patient had 2 units of PRBC and 3 bags of pheresis platelets transfused since last clinical evaluation. He denied any fever or chills. No chest pain or difficulty with breathing. No nausea, vomiting, or abdominal pain. Bowel movement is fair. Reason For Visit: RECURRENT DIFFUSE B CELL NON HODGKIN'S LYMPHOMA W Physical Exam Vital Signs: Temp Pulse Resp BP Pulse Ox 97.9 F 80 16 140/62 H 100 08/20/17 08:40 08/20/17 08:40 08/20/17 08:40 08/20/17 08:40 08/20/17 08:40 Intake & Output 08/19/17 08/20/17 08/21/17 06:59 06:59 06:59 Intake Total 1616 2181 0 Output Total 850 3095 Balance 766 -914 0 Physical Exam: General appearance: PRESENT: no acute distress, well-developed, well-nourished Head exam: PRESENT: atraumatic, normocephalic Eye exam: PRESENT: conjunctiva pink, EOMI, PERRLA. ABSENT: scleral icterus Cardiovascular exam: PRESENT: RRR, +S1, +S2, tachycardia Vascular exam: PRESENT: normal capillary refill. ABSENT: pallor GI/Abdominal exam: PRESENT: normal bowel sounds, soft. ABSENT: distended, guarding, mass, organomegaly, rebound, tenderness Extremities exam: ABSENT: pedal edema Musculoskeletal exam: PRESENT: normal inspection Neurological exam: PRESENT: alert, awake, oriented to person, oriented to place , oriented to time, oriented to situation, CN II-XII grossly intact. ABSENT: motor sensory deficit Psychiatric exam: PRESENT: appropriate affect, normal mood. ABSENT: homicidal ideation, suicidal ideation Skin exam: PRESENT: dry, intact, warm. ABSENT: cyanosis, rash Results Laboratory Results: 08/20/17 06:37 08/19/17 15:20 08/19/17 08/19/17 08/19/17 15:20 15:20 17:25 WBC 1.2 L* D RBC 2.45 L Hgb 6.6 L Hct 18.7 L MCV 76 L MCH 26.8 L MCHC 35.1 RDW 13.8 Plt Count 3 L* D Seg Neutrophils % Not Reportable Lymphocytes % Not Reportable Monocytes % Not Reportable Eosinophils % Not Reportable Basophils % Not Reportable Absolute Neutrophils Not Reportable Absolute Lymphocytes Not Reportable Absolute Monocytes Not Reportable Absolute Eosinophils Not Reportable Absolute Basophils Not Reportable Sodium 131.9 L Potassium 4.5 Chloride 99 Carbon Dioxide 23 Anion Gap 10 BUN 25 H Creatinine 0.82 Est GFR ( Amer) > 60 Est GFR (Non-Af Amer) > 60 Glucose 322 H Calcium 8.5 Total Bilirubin 0.8 AST 55 ALT 60 Alkaline Phosphatase 255 H Total Protein 5.2 L Albumin 3.2 L Blood Type A POSITIVE Antibody Screen NEGATIVE 08/20/17 06:37 WBC 1.4 L* RBC 3.08 L Hgb 8.5 L Hct 23.7 L MCV 77 L MCH 27.5 MCHC 35.6 RDW 14.4 H Plt Count 18 L* D Seg Neutrophils % Not Reportable Lymphocytes % Not Reportable Monocytes % Not Reportable Eosinophils % Not Reportable Basophils % Not Reportable Absolute Neutrophils Not Reportable Absolute Lymphocytes Not Reportable Absolute Monocytes Not Reportable Absolute Eosinophils Not Reportable Absolute Basophils Not Reportable Sodium Potassium Chloride Carbon Dioxide Anion Gap BUN Creatinine Est GFR ( Amer) Est GFR (Non-Af Amer) Glucose Calcium Total Bilirubin AST ALT Alkaline Phosphatase Total Protein Albumin Blood Type Antibody Screen Assessment & Plan - Diagnosis (1) Diffuse large B cell lymphoma Qualifiers: Lymphoma site: extranodal excluding spleen and other solid organs Qualified Code(s): C83.39 - Diffuse large B-cell lymphoma, extranodal and solid organ sites Is this a current diagnosis for this admission?: Yes (2) Thrombocytopenia Is this a current diagnosis for this admission?: Yes (3) Diabetes mellitus type 2 in obese Is this a current diagnosis for this admission?: Yes (4) HTN (hypertension) Qualifiers: Hypertension type: essential hypertension Qualified Code(s): I10 - Essential (primary) hypertension Is this a current diagnosis for this admission?: Yes (5) HLD (hyperlipidemia) Qualifiers: Hyperlipidemia type: unspecified Qualified Code(s): E78.5 - Hyperlipidemia , unspecified Is this a current diagnosis for this admission?: Yes (6) Osteoarthritis involving multiple joints on both sides of body Is this a current diagnosis for this admission?: Yes (7) Pancytopenia Is this a current diagnosis for this admission?: Yes - Time Time Spent with patient: 25-34 minutes Medications reviewed and adjusted accordingly: Yes Anticipated discharge: Home Within: Other - Inpatient Certification Based on my medical assessment, after consideration of the patient's comorbidities, presenting symptoms, or acuity I expect that the services needed warrant INPATIENT care.: Yes I certify that my determination is in accordance with my understanding of Medicare's requirements for reasonable and necessary INPATIENT services [42 CFR 412.3e].: Yes Medical Necessity: Need Close Monitoring Due to Risk of Patient Decompensation, Need For IV Fluids, Need For Continuous Telemetry Monitoring, Risk of Complication if Not Cared For in Hospital Post Hospital Care: D/C Spiritual Minister Documentation - Plan Summary Plan Summary: Continue current management. Start on Epogen 40,000 units q weekly. Obtain serum LDH level. Repeat CBC in am.
[2017-08-20] MEDS ORDERED: EPOETIN ALFA INJ 40000 UNIT/1 ML (ONCOLOGY) SUBCUT ONE (13:00)
[2017-08-20 13:41] LABS: HEMATOCRIT 22.2 % (37.9-51.0); HGB HCT DIFFERENCE 1.5; MEAN CORPUSCULAR HEMOGLOBIN 27.3 pg (27.0-33.4); MEAN CORPUSCULAR HGB CONC 35.4 g/dL (32.0-36.0); MEAN CORPUSCULAR VOLUME 77 fl (80-97); RED BLOOD COUNT 2.88 10^6/uL (4.35-5.55); RED CELL DISTRIBUTION WIDTH 14.3 % (11.5-14.0)
[2017-08-20 14:00] LABS: HEMOGLOBIN 7.9 g/dL (13.5-17.0); WHITE BLOOD COUNT 1.3 10^3/uL (4.0-10.5)
[2017-08-20] MEDS ORDERED: INSULIN LISPRO 100 UNIT/ML 3 ML VIAL SUBCUT ONE (23:45)
[2017-08-21] MEDS: LANSOPRAZOLE 30 MG TAB.RAP.DR PO SCH (06:31)
[2017-08-21 07:29] LABS: ABSOLUTE LYMPHOCYTES (AUTO) 0.2 10^3/uL (0.5-4.7); ABSOLUTE MONOCYTES (AUTO) 0.1 10^3/uL (0.1-1.4); ABSOLUTE NEUT (AUTO) 0.7 10^3/uL (1.7-8.2); BASOPHILS % (AUTO) 0.7 % (0-2); EOSINOPHILS % (AUTO) 0.7 % (0-6); HEMATOCRIT 23.3 % (37.9-51.0); HEMOGLOBIN 8.1 g/dL (13.5-17.0); LYMPHOCYTES % (AUTO) 19.9 % (13-45); MEAN CORPUSCULAR HEMOGLOBIN 27.3 pg (27.0-33.4); MEAN CORPUSCULAR HGB CONC 34.8 g/dL (32.0-36.0); MEAN CORPUSCULAR VOLUME 78 fl (80-97); MONOCYTES % (AUTO) 11.8 % (3-13); RED BLOOD COUNT 2.97 10^6/uL (4.35-5.55); RED CELL DISTRIBUTION WIDTH 14.2 % (11.5-14.0); SEGMENTED NEUTROPHILS % (AUTO) 66.9 % (42-78)
[2017-08-21 07:30] LABS: ALANINE AMINOTRANSFERASE 48 U/L (21-72); ALBUMIN 3.5 g/dL (3.5-5.0); ALKALINE PHOSPHATASE 206 U/L (38-126); ANION GAP 9 (5-19); ASPARTATE AMINO TRANSFERASE 26 U/L (17-59); BILIRUBIN,DIRECT 0.4 mg/dL (0.0-0.4); BILIRUBIN,TOTAL 0.7 mg/dL (0.2-1.3); BLOOD UREA NITROGEN 18 mg/dL (7-20); CALCIUM 9.3 mg/dL (8.4-10.2); CARBON DIOXIDE 28 mmol/L (22-30); CHLORIDE 102 mmol/L (98-107); CREATININE RESULT 0.81 mg/dL (0.52-1.25); GLUCOSE 157 mg/dL (75-110); POTASSIUM 3.9 mmol/L (3.6-5.0); SODIUM 138.5 mmol/L (137-145); TOTAL PROTEIN 5.9 g/dL (6.3-8.2)
[2017-08-21 07:56] LABS: LDH 9975 U/L (313-618)
[2017-08-21] MEDS: NORMAL SALINE 1000 ML 1,000 ML IV PRN ×2 (08:15→17:38)
[2017-08-21] MEDS: NATEGLINIDE 60 MG TABLET PO SCH ×3 (08:15→16:20)
[2017-08-21] MEDS: INSULIN LISPRO 100 UNIT/ML 3 ML VIAL SUBCUT PRN ×4 (08:15→22:33)
[2017-08-21 08:20] LABS: HYPOCHROMASIA SLIGHT; MICROCYTOSIS 1+
[2017-08-21] MEDS: ALLOPURINOL 300 MG TABLET PO SCH (10:18)
[2017-08-21] MEDS: AMLODIPINE BESYLATE 5 MG TABLET PO SCH (10:18)
[2017-08-21] MEDS: DOCUSATE SODIUM 100 MG CAPSULE PO SCH (10:18)
[2017-08-21] MEDS: GLIMEPIRIDE 4 MG TABLET PO SCH (10:18)
[2017-08-21] MEDS: PREDNISONE 20 MG TABLET PO SCH (10:19)
[2017-08-21] MEDS: BENAZEPRIL HCL 20 MG TABLET PO SCH (10:20)
[2017-08-21] MEDS: PIOGLITAZONE HCL 30 MG TABLET PO SCH (10:20)
--- NOTE | 2017-08-21 11:26 | PDOC PROGRESS REPORT ---
Subjective Progress Note for:: 08/21/17 Subjective:: Patient denied any fever or chills. He reported night sweats last night. No chest pain or difficulty with breathing. No nausea, vomiting, or abdominal pain. 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 ABSENT: scleral icterus Cardiovascular exam: PRESENT: RRR, +S1, +S2, tachycardia Vascular exam: PRESENT: normal capillary refill. ABSENT: pallor GI/Abdominal exam: PRESENT: normal bowel sounds, soft. ABSENT: distended, guarding, mass, organomegaly, rebound, tenderness Extremities exam: ABSENT: pedal edema Musculoskeletal exam: PRESENT: normal inspection Neurological exam: PRESENT: alert, awake, oriented to person, oriented to place , oriented to time, oriented to situation, CN II-XII grossly intact. ABSENT: motor sensory deficit Psychiatric exam: PRESENT: appropriate affect, normal mood. ABSENT: homicidal ideation, suicidal ideation Skin exam: PRESENT: dry, intact, warm. ABSENT: cyanosis, rash Results Laboratory Results: 08/21/17 07:04 08/21/17 07:04 08/20/17 08/21/17 08/21/17 13:05 07:04 07:04 WBC 1.3 L* 1.0 L* RBC 2.88 L 2.97 L Hgb 7.9 L 8.1 L Hct 22.2 L 23.3 L MCV 77 L 78 L MCH 27.3 27.3 MCHC 35.4 34.8 RDW 14.3 H 14.2 H Plt Count 26 L* 15 L* Seg Neutrophils % 66.9 Lymphocytes % 19.9 Monocytes % 11.8 Eosinophils % 0.7 Basophils % 0.7 Absolute Neutrophils 0.7 L Absolute Lymphocytes 0.2 L Absolute Monocytes 0.1 Absolute Eosinophils 0.0 Absolute Basophils 0.0 Sodium 138.5 Potassium 3.9 Chloride 102 Carbon Dioxide 28 Anion Gap 9 BUN 18 Creatinine 0.81 Est GFR ( Amer) > 60 Est GFR (Non-Af Amer) > 60 Glucose 157 H Calcium 9.3 Total Bilirubin 0.7 AST 26 ALT 48 Alkaline Phosphatase 206 H Total Protein 5.9 L Albumin 3.5 Assessment & Plan - Diagnosis (1) Diffuse large B cell lymphoma Qualifiers: Lymphoma site: extranodal excluding spleen and other solid organs Qualified Code(s): C83.39 - Diffuse large B-cell lymphoma, extranodal and solid organ sites Is this a current diagnosis for this admission?: Yes (2) Thrombocytopenia Is this a current diagnosis for this admission?: Yes (3) Diabetes mellitus type 2 in obese Is this a current diagnosis for this admission?: Yes (4) HTN (hypertension) Qualifiers: Hypertension type: essential hypertension Qualified Code(s): I10 - Essential (primary) hypertension Is this a current diagnosis for this admission?: Yes (5) HLD (hyperlipidemia) Qualifiers: Hyperlipidemia type: unspecified Qualified Code(s): E78.5 - Hyperlipidemia , unspecified Is this a current diagnosis for this admission?: Yes (6) Osteoarthritis involving multiple joints on both sides of body Is this a current diagnosis for this admission?: Yes (7) Pancytopenia Is this a current diagnosis for this admission?: Yes - Time Time Spent with patient: 25-34 minutes Medications reviewed and adjusted accordingly: Yes Anticipated discharge: Home Within: Other - Inpatient Certification Based on my medical assessment, after consideration of the patient's comorbidities, presenting symptoms, or acuity I expect that the services needed warrant INPATIENT care.: Yes I certify that my determination is in accordance with my understanding of Medicare's requirements for reasonable and necessary INPATIENT services [42 CFR 412.3e].: Yes Medical Necessity: Need Close Monitoring Due to Risk of Patient Decompensation, Need For IV Fluids, Need For Continuous Telemetry Monitoring, Risk of Complication if Not Cared For in Hospital Post Hospital Care: D/C Instructional Facilitator 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 If platelet remain above 20,000 tomorrow I will consider discharging him home. His LDH is on downward trend. repeat CBC in AM.
[2017-08-21] MEDS ORDERED: CARISOPRODOL 350 MG TABLET PO PRN (11:46)
[2017-08-21] MEDS ORDERED: INSULIN LISPRO 100 UNIT/ML 3 ML VIAL SUBCUT ONE (18:00)
[2017-08-21] MEDS: OXYCODONE-ACETAMINOPHEN 5-325 MG TABLET PO PRN (22:33)
[2017-08-22] MEDS: LANSOPRAZOLE 30 MG TAB.RAP.DR PO SCH (06:23)
[2017-08-22] MEDS: NORMAL SALINE 1000 ML 1,000 ML IV PRN (06:23)
[2017-08-22 07:41] LABS: HEMATOCRIT 21.3 % (37.9-51.0); HGB HCT DIFFERENCE 1.8; MEAN CORPUSCULAR HEMOGLOBIN 27.8 pg (27.0-33.4); MEAN CORPUSCULAR HGB CONC 36.2 g/dL (32.0-36.0); MEAN CORPUSCULAR VOLUME 77 fl (80-97); RED BLOOD COUNT 2.77 10^6/uL (4.35-5.55); RED CELL DISTRIBUTION WIDTH 14.5 % (11.5-14.0)
[2017-08-22] MEDS: NATEGLINIDE 60 MG TABLET PO SCH ×3 (07:43→18:10)
[2017-08-22 08:34] LABS: HEMOGLOBIN 7.7 g/dL (13.5-17.0); WHITE BLOOD COUNT 0.8 10^3/uL (4.0-10.5)
[2017-08-22] MEDS: DOCUSATE SODIUM 100 MG CAPSULE PO SCH (11:01)
[2017-08-22] MEDS: BENAZEPRIL HCL 20 MG TABLET PO SCH (11:02)
[2017-08-22] MEDS: GLIMEPIRIDE 4 MG TABLET PO SCH (11:03)
[2017-08-22] MEDS: ALLOPURINOL 300 MG TABLET PO SCH (11:03)
[2017-08-22] MEDS: AMLODIPINE BESYLATE 5 MG TABLET PO SCH (11:03)
[2017-08-22] MEDS: PREDNISONE 20 MG TABLET PO SCH (11:04)
[2017-08-22] MEDS: PIOGLITAZONE HCL 30 MG TABLET PO SCH (11:05)
[2017-08-22] MEDS ORDERED: NORMAL SALINE 250 ML IV PRN ×2 (12:07)
[2017-08-22 12:33] LABS: PATH REVIEW PATHOLOGIST REVIEWED
[2017-08-22 12:34] LABS: PATH REVIEW PATHOLOGIST REVIEWED
--- NOTE | 2017-08-22 12:40 | PDOC PROGRESS REPORT ---
Subjective Progress Note for:: 08/22/17 Subjective:: Patient denied any fever or chills. No chest pain or difficulty with breathing. No nausea, vomiting, or abdominal pain. Patient reported persistent constipation. 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 ABSENT: scleral icterus Cardiovascular exam: PRESENT: RRR, +S1, +S2, tachycardia Vascular exam: PRESENT: normal capillary refill. ABSENT: pallor GI/Abdominal exam: PRESENT: normal bowel sounds, soft. ABSENT: distended, guarding, mass, organomegaly, rebound, tenderness Extremities exam: ABSENT: pedal edema Musculoskeletal exam: PRESENT: normal inspection Neurological exam: PRESENT: alert, awake, oriented to person, oriented to place , oriented to time, oriented to situation, CN II-XII grossly intact. ABSENT: motor sensory deficit Psychiatric exam: PRESENT: appropriate affect, normal mood. ABSENT: homicidal ideation, suicidal ideation Skin exam: PRESENT: dry, intact, warm. ABSENT: cyanosis, rash Results Laboratory Results: 08/22/17 07:13 08/21/17 07:04 08/22/17 07:13 WBC 0.8 L* RBC 2.77 L Hgb 7.7 L Hct 21.3 L MCV 77 L MCH 27.8 MCHC 36.2 H RDW 14.5 H Plt Count 5 L* Assessment & Plan - Diagnosis (1) Diffuse large B cell lymphoma Qualifiers: Lymphoma site: extranodal excluding spleen and other solid organs Qualified Code(s): C83.39 - Diffuse large B-cell lymphoma, extranodal and solid organ sites Is this a current diagnosis for this admission?: Yes (2) Thrombocytopenia Is this a current diagnosis for this admission?: Yes (3) Diabetes mellitus type 2 in obese Is this a current diagnosis for this admission?: Yes (4) HTN (hypertension) Qualifiers: Hypertension type: essential hypertension Qualified Code(s): I10 - Essential (primary) hypertension Is this a current diagnosis for this admission?: Yes (5) HLD (hyperlipidemia) Qualifiers: Hyperlipidemia type: unspecified Qualified Code(s): E78.5 - Hyperlipidemia , unspecified Is this a current diagnosis for this admission?: Yes (6) Osteoarthritis involving multiple joints on both sides of body Is this a current diagnosis for this admission?: Yes (7) Pancytopenia Is this a current diagnosis for this admission?: Yes - Time Time Spent with patient: 25-34 minutes Medications reviewed and adjusted accordingly: Yes Anticipated discharge: Home Within: Other - Inpatient Certification Based on my medical assessment, after consideration of the patient's comorbidities, presenting symptoms, or acuity I expect that the services needed warrant INPATIENT care.: Yes I certify that my determination is in accordance with my understanding of Medicare's requirements for reasonable and necessary INPATIENT services [42 CFR 412.3e].: Yes Medical Necessity: Need Close Monitoring Due to Risk of Patient Decompensation, Need For IV Fluids, Need For Continuous Telemetry Monitoring, Risk of Complication if Not Cared For in Hospital Post Hospital Care: D/C Creative Writing Teacher Documentation - Plan Summary Plan Summary: Patient will receive a dose of Neupogen 300 mcg subcut, 2 units of PRBC and 2 bags of pheresis platelet transfusion. He will receive Dulcolax 10 mg p.o x 1 dose.
[2017-08-22] MEDS ORDERED: FILGRASTIM INJ 300 MCG/1 ML VIAL SUBCUT ONE (13:00)
[2017-08-22] MEDS ORDERED: HYDROXYZINE PAMOATE 25 MG CAPSULE PO PRN (13:16)
[2017-08-22] MEDS: INSULIN LISPRO 100 UNIT/ML 3 ML VIAL SUBCUT PRN ×3 (14:17→23:44)
[2017-08-22 14:39] LABS: HGB SOLUBILITY RESULT Negative (Negative)
[2017-08-22 15:13] LABS: HGB A 97.9 % (94.0-98.0); HGB A2 2.1 % (0.7-3.1)
[2017-08-22 21:21] LABS: ABSOLUTE LYMPHOCYTES (AUTO) 0.1 10^3/uL (0.5-4.7); ABSOLUTE NEUT (AUTO) 0.6 10^3/uL (1.7-8.2); BASOPHILS % (AUTO) 2.6 % (0-2); EOSINOPHILS % (AUTO) 0.8 % (0-6); HEMATOCRIT 27.5 % (37.9-51.0); HEMOGLOBIN 9.5 g/dL (13.5-17.0); LYMPHOCYTES % (AUTO) 18.2 % (13-45); MEAN CORPUSCULAR HEMOGLOBIN 27.5 pg (27.0-33.4); MEAN CORPUSCULAR HGB CONC 34.6 g/dL (32.0-36.0); MEAN CORPUSCULAR VOLUME 79 fl (80-97); MONOCYTES % (AUTO) 2.3 % (3-13); RED BLOOD COUNT 3.47 10^6/uL (4.35-5.55); RED CELL DISTRIBUTION WIDTH 14.9 % (11.5-14.0); SEGMENTED NEUTROPHILS % (AUTO) 76.1 % (42-78)
[2017-08-22 21:32] LABS: ANISOCYTOSIS SLIGHT; MICROCYTOSIS SLIGHT
[2017-08-22 21:38] LABS: WHITE BLOOD COUNT 0.8 10^3/uL (4.0-10.5)
[2017-08-23] MEDS: LANSOPRAZOLE 30 MG TAB.RAP.DR PO SCH (06:29)
[2017-08-23] MEDS: NORMAL SALINE 1000 ML 1,000 ML IV PRN (06:29)
[2017-08-23] MEDS: NATEGLINIDE 60 MG TABLET PO SCH ×3 (08:08→17:44)
[2017-08-23] MEDS: PREDNISONE 20 MG TABLET PO SCH (10:05)
[2017-08-23] MEDS: BENAZEPRIL HCL 20 MG TABLET PO SCH (10:06)
[2017-08-23] MEDS: PIOGLITAZONE HCL 30 MG TABLET PO SCH (10:07)
[2017-08-23] MEDS: DOCUSATE SODIUM 100 MG CAPSULE PO SCH (10:07)
[2017-08-23] MEDS: GLIMEPIRIDE 4 MG TABLET PO SCH (10:09)
[2017-08-23] MEDS: AMLODIPINE BESYLATE 5 MG TABLET PO SCH (10:09)
[2017-08-23] MEDS: ALLOPURINOL 300 MG TABLET PO SCH (10:10)
[2017-08-23] MEDS: INSULIN LISPRO 100 UNIT/ML 3 ML VIAL SUBCUT PRN ×4 (10:10→22:09)
--- NOTE | 2017-08-23 18:44 | PDOC PROGRESS REPORT ---
Subjective Progress Note for:: 08/23/17 Subjective:: Patient denied any fever or chills. No chest pain or difficulty with breathing. No nausea, vomiting, or abdominal pain. Patient had 2 units of PRBC and 2 bags of pheresis platelet transfusion since last clinical evaluation. Post transfusion CBC is pending at the time of my consultation. 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 ABSENT: scleral icterus Cardiovascular exam: PRESENT: RRR, +S1, +S2, tachycardia Vascular exam: PRESENT: normal capillary refill. ABSENT: pallor GI/Abdominal exam: PRESENT: normal bowel sounds, soft. ABSENT: distended, guarding, mass, organomegaly, rebound, tenderness Extremities exam: ABSENT: pedal edema Musculoskeletal exam: PRESENT: normal inspection Neurological exam: PRESENT: alert, awake, oriented to person, oriented to place , oriented to time, oriented to situation, CN II-XII grossly intact. ABSENT: motor sensory deficit Psychiatric exam: PRESENT: appropriate affect, normal mood. ABSENT: homicidal ideation, suicidal ideation Skin exam: PRESENT: dry, intact, warm. Resolving ecchymosis RLQ site of prior administered Lovenox for DVT prophylaxis. ABSENT: cyanosis, rash Results Laboratory Results: 08/22/17 20:55 08/21/17 07:04 08/22/17 08/22/17 12:47 20:55 WBC 0.8 L* RBC 3.47 L Hgb 9.5 L Hct 27.5 L MCV 79 L MCH 27.5 MCHC 34.6 RDW 14.9 H Plt Count 4 L* Seg Neutrophils % 76.1 Lymphocytes % 18.2 Monocytes % 2.3 L Eosinophils % 0.8 Basophils % 2.6 H Absolute Neutrophils 0.6 L Absolute Lymphocytes 0.1 L Absolute Monocytes 0.0 L Absolute Eosinophils 0.0 Absolute Basophils 0.0 Blood Type A POSITIVE Antibody Screen NEGATIVE Assessment & Plan - Diagnosis (1) Diffuse large B cell lymphoma Qualifiers: Lymphoma site: extranodal excluding spleen and other solid organs Qualified Code(s): C83.39 - Diffuse large B-cell lymphoma, extranodal and solid organ sites Is this a current diagnosis for this admission?: Yes (2) Thrombocytopenia Is this a current diagnosis for this admission?: Yes (3) Diabetes mellitus type 2 in obese Is this a current diagnosis for this admission?: Yes (4) HTN (hypertension) Qualifiers: Hypertension type: essential hypertension Qualified Code(s): I10 - Essential (primary) hypertension Is this a current diagnosis for this admission?: Yes (5) HLD (hyperlipidemia) Qualifiers: Hyperlipidemia type: unspecified Qualified Code(s): E78.5 - Hyperlipidemia , unspecified Is this a current diagnosis for this admission?: Yes (6) Osteoarthritis involving multiple joints on both sides of body Is this a current diagnosis for this admission?: Yes (7) Pancytopenia Is this a current diagnosis for this admission?: Yes - Time Time Spent with patient: 25-34 minutes Medications reviewed and adjusted accordingly: Yes Anticipated discharge: Home Within: Other - Inpatient Certification Based on my medical assessment, after consideration of the patient's comorbidities, presenting symptoms, or acuity I expect that the services needed warrant INPATIENT care.: Yes I certify that my determination is in accordance with my understanding of Medicare's requirements for reasonable and necessary INPATIENT services [42 CFR 412.3e].: Yes Medical Necessity: Need Close Monitoring Due to Risk of Patient Decompensation, Need For IV Fluids, Need For Continuous Telemetry Monitoring, Risk of Complication if Not Cared For in Hospital Post Hospital Care: D/C Lead Press Operator 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 Possible discharge over next 24 hours if his platelet count is over 20,000. Patient had Epogen and Neupogen administration for his anemia and leukopenia management. He remain in reverse isolation.
[2017-08-23 19:59] LABS: ABSOLUTE LYMPHOCYTES (AUTO) 0.1 10^3/uL (0.5-4.7); ABSOLUTE NEUT (AUTO) 0.4 10^3/uL (1.7-8.2); BASOPHILS % (AUTO) 0.2 % (0-2); EOSINOPHILS % (AUTO) 1.4 % (0-6); HEMATOCRIT 24.9 % (37.9-51.0); HGB HCT DIFFERENCE 2.1; MEAN CORPUSCULAR HEMOGLOBIN 28.3 pg (27.0-33.4); MEAN CORPUSCULAR VOLUME 79 fl (80-97); MONOCYTES % (AUTO) 3.5 % (3-13); RED BLOOD COUNT 3.16 10^6/uL (4.35-5.55); RED CELL DISTRIBUTION WIDTH 14.8 % (11.5-14.0); SEGMENTED NEUTROPHILS % (AUTO) 72.9 % (42-78)
[2017-08-23 20:05] LABS: ANISOCYTOSIS SLIGHT; HYPOCHROMASIA SLIGHT; MICROCYTOSIS SLIGHT
[2017-08-23 20:13] LABS: WHITE BLOOD COUNT 0.5 10^3/uL (4.0-10.5)
[2017-08-23] MEDS ORDERED: OXYCODONE-ACETAMINOPHEN 5-325 MG TABLET PO PRN (20:19)
[2017-08-24] MEDS: LANSOPRAZOLE 30 MG TAB.RAP.DR PO SCH (05:15)
[2017-08-24] MEDS: NORMAL SALINE 1000 ML 1,000 ML IV PRN (05:49)
[2017-08-24 05:50] LABS: HEMATOCRIT 22.8 % (37.9-51.0); HEMOGLOBIN 8.2 g/dL (13.5-17.0); HGB HCT DIFFERENCE 1.8; MEAN CORPUSCULAR HGB CONC 35.8 g/dL (32.0-36.0); MEAN CORPUSCULAR VOLUME 78 fl (80-97); RED BLOOD COUNT 2.91 10^6/uL (4.35-5.55); RED CELL DISTRIBUTION WIDTH 14.7 % (11.5-14.0)
[2017-08-24 06:54] LABS: BASOPHILS % (MANUAL) 2 % (0-2); EOSINOPHILS % (MANUAL) 0 % (0-6); LYMPHOCYTES % (MANUAL) 30 % (13-45); TOTAL CELLS COUNTED 50; WHITE BLOOD COUNT 0.4 10^3/uL (4.0-10.5)
[2017-08-24 06:55] LABS: ANISOCYTOSIS SLIGHT; HYPOCHROMASIA SLIGHT; ROULEAUX SLIGHT; TOXIC GRANULATION 1+
--- NOTE | 2017-08-24 08:28 | PDOC PROGRESS REPORT ---
Subjective Progress Note for:: 08/24/17 Subjective:: Patient denied any fever or chills. No chest pain or difficulty with breathing. No nausea, vomiting, or abdominal pain. Patient received 2 bags of pheresis platelet since last clinical evaluation. Reason For Visit: RECURRENT DIFFUSE B CELL NON HODGKIN'S LYMPHOMA W Physical Exam Vital Signs: Temp Pulse Resp BP Pulse Ox 98.4 F 71 16 141/71 H 100 08/24/17 01:20 08/24/17 02:00 08/24/17 01:20 08/24/17 01:20 08/24/17 01:20 Intake & Output 08/23/17 08/24/17 08/25/17 06:59 06:59 06:59 Intake Total 1935 2116 Output Total 3300 3475 Balance -1365 -1359 Physical Exam: General appearance: PRESENT: no acute distress, well-developed, well-nourished Head exam: PRESENT: atraumatic, normocephalic Eye exam: PRESENT: conjunctiva pink, EOMI, PERRLA. ABSENT: scleral icterus Cardiovascular exam: PRESENT: RRR, +S1, +S2, tachycardia Vascular exam: PRESENT: normal capillary refill. ABSENT: pallor GI/Abdominal exam: PRESENT: normal bowel sounds, soft. ABSENT: distended, guarding, mass, organomegaly, rebound, tenderness Extremities exam: ABSENT: pedal edema Musculoskeletal exam: PRESENT: normal inspection Neurological exam: PRESENT: alert, awake, oriented to person, oriented to place , oriented to time, oriented to situation, CN II-XII grossly intact. ABSENT: motor sensory deficit Psychiatric exam: PRESENT: appropriate affect, normal mood. ABSENT: homicidal ideation, suicidal ideation Skin exam: PRESENT: dry, intact, warm. Resolving ecchymotic lesion RLQ site of prior administered Lovenox for DVT prophylaxis. ABSENT: cyanosis, rash Results Laboratory Results: 08/24/17 04:45 08/21/17 07:04 08/22/17 08/23/17 08/24/17 12:47 19:27 04:45 WBC 0.5 L* 0.4 L* RBC 3.16 L 2.91 L Hgb 9.0 L 8.2 L Hct 24.9 L 22.8 L MCV 79 L 78 L MCH 28.3 28.0 MCHC 36.0 35.8 RDW 14.8 H 14.7 H Plt Count 7 L* 17 L* D Seg Neutrophils % 72.9 Not Reportable Lymphocytes % 22.0 Not Reportable Monocytes % 3.5 Not Reportable Eosinophils % 1.4 Not Reportable Basophils % 0.2 Not Reportable Absolute Neutrophils 0.4 L Not Reportable Absolute Lymphocytes 0.1 L Not Reportable Absolute Monocytes 0.0 L Not Reportable Absolute Eosinophils 0.0 Not Reportable Absolute Basophils 0.0 Not Reportable Blood Type A POSITIVE Antibody Screen NEGATIVE Assessment & Plan - Diagnosis (1) Diffuse large B cell lymphoma Qualifiers: Lymphoma site: extranodal excluding spleen and other solid organs Qualified Code(s): C83.39 - Diffuse large B-cell lymphoma, extranodal and solid organ sites Is this a current diagnosis for this admission?: Yes (2) Thrombocytopenia Is this a current diagnosis for this admission?: Yes (3) Diabetes mellitus type 2 in obese Is this a current diagnosis for this admission?: Yes (4) HTN (hypertension) Qualifiers: Hypertension type: essential hypertension Qualified Code(s): I10 - Essential (primary) hypertension Is this a current diagnosis for this admission?: Yes (5) HLD (hyperlipidemia) Qualifiers: Hyperlipidemia type: unspecified Qualified Code(s): E78.5 - Hyperlipidemia , unspecified Is this a current diagnosis for this admission?: Yes (6) Osteoarthritis involving multiple joints on both sides of body Is this a current diagnosis for this admission?: Yes (7) Pancytopenia Is this a current diagnosis for this admission?: Yes - Time Time Spent with patient: 25-34 minutes Medications reviewed and adjusted accordingly: Yes Anticipated discharge: Home Within: Other - Inpatient Certification Based on my medical assessment, after consideration of the patient's comorbidities, presenting symptoms, or acuity I expect that the services needed warrant INPATIENT care.: Yes I certify that my determination is in accordance with my understanding of Medicare's requirements for reasonable and necessary INPATIENT services [42 CFR 412.3e].: Yes Medical Necessity: Need Close Monitoring Due to Risk of Patient Decompensation, Need For IV Fluids, Need For Continuous Telemetry Monitoring, Risk of Complication if Not Cared For in Hospital Post Hospital Care: D/C Certified Respiratory Therapist Documentation - Plan Summary Plan Summary: Patient continue to demonstrate pancytopenic state that is related to his underlying malignancy and effect of chemotherapy. I will give Neupogen 300 mcg subcut x 1 dose. Repeat CBC in AM. Obtain CMP and LDH level in AM. Overall prognosis remain guarded.
[2017-08-24] MEDS: INSULIN LISPRO 100 UNIT/ML 3 ML VIAL SUBCUT PRN ×4 (09:05→22:07)
[2017-08-24] MEDS: NATEGLINIDE 60 MG TABLET PO SCH ×3 (09:05→18:17)
[2017-08-24] MEDS: AMLODIPINE BESYLATE 5 MG TABLET PO SCH (09:06)
[2017-08-24] MEDS: BENAZEPRIL HCL 20 MG TABLET PO SCH (09:06)
[2017-08-24] MEDS: ALLOPURINOL 300 MG TABLET PO SCH (09:06)
[2017-08-24] MEDS: PREDNISONE 20 MG TABLET PO SCH (09:06)
[2017-08-24] MEDS: GLIMEPIRIDE 4 MG TABLET PO SCH (09:06)
[2017-08-24] MEDS: DOCUSATE SODIUM 100 MG CAPSULE PO SCH (09:06)
[2017-08-24] MEDS: PIOGLITAZONE HCL 30 MG TABLET PO SCH (09:06)
[2017-08-24] MEDS ORDERED: FILGRASTIM INJ 300 MCG/1 ML VIAL SUBCUT ONE (10:00)
[2017-08-25] MEDS: LANSOPRAZOLE 30 MG TAB.RAP.DR PO SCH (06:55)
[2017-08-25] MEDS: NATEGLINIDE 60 MG TABLET PO SCH ×3 (09:07→17:36)
[2017-08-25] MEDS: PREDNISONE 20 MG TABLET PO SCH (09:08)
[2017-08-25] MEDS: PIOGLITAZONE HCL 30 MG TABLET PO SCH (09:08)
[2017-08-25] MEDS: ALLOPURINOL 300 MG TABLET PO SCH (09:08)
[2017-08-25] MEDS: DOCUSATE SODIUM 100 MG CAPSULE PO SCH (09:09)
[2017-08-25] MEDS: GLIMEPIRIDE 4 MG TABLET PO SCH (09:09)
[2017-08-25] MEDS: AMLODIPINE BESYLATE 5 MG TABLET PO SCH (09:09)
[2017-08-25] MEDS: BENAZEPRIL HCL 20 MG TABLET PO SCH (09:10)
[2017-08-25 09:45] LABS: ABSOLUTE LYMPHOCYTES (AUTO) 0.2 10^3/uL (0.5-4.7); EOSINOPHILS % (AUTO) 1.3 % (0-6); HEMATOCRIT 24.3 % (37.9-51.0); HEMOGLOBIN 8.6 g/dL (13.5-17.0); HGB HCT DIFFERENCE 1.5; LYMPHOCYTES % (AUTO) 73.5 % (13-45); MEAN CORPUSCULAR HEMOGLOBIN 27.9 pg (27.0-33.4); MEAN CORPUSCULAR HGB CONC 35.4 g/dL (32.0-36.0); MEAN CORPUSCULAR VOLUME 79 fl (80-97); MONOCYTES % (AUTO) 7.8 % (3-13); RED BLOOD COUNT 3.09 10^6/uL (4.35-5.55); RED CELL DISTRIBUTION WIDTH 14.5 % (11.5-14.0); SEGMENTED NEUTROPHILS % (AUTO) 17.4 % (42-78)
[2017-08-25 10:04] LABS: ALANINE AMINOTRANSFERASE 34 U/L (21-72); ALBUMIN 3.5 g/dL (3.5-5.0); ALKALINE PHOSPHATASE 116 U/L (38-126); ANION GAP 9 (5-19); ASPARTATE AMINO TRANSFERASE 8 U/L (17-59); BILIRUBIN,DIRECT 0.1 mg/dL (0.0-0.4); BILIRUBIN,TOTAL 0.8 mg/dL (0.2-1.3); BLOOD UREA NITROGEN 19 mg/dL (7-20); CALCIUM 8.9 mg/dL (8.4-10.2); CARBON DIOXIDE 27 mmol/L (22-30); CHLORIDE 98 mmol/L (98-107); GLUCOSE 165 mg/dL (75-110); POTASSIUM 3.8 mmol/L (3.6-5.0); SODIUM 134.4 mmol/L (137-145); TOTAL PROTEIN 5.6 g/dL (6.3-8.2)
[2017-08-25 10:13] LABS: WHITE BLOOD COUNT 0.2 10^3/uL (4.0-10.5)
[2017-08-25 10:14] LABS: ANISOCYTOSIS SLIGHT; HYPOCHROMASIA SLIGHT; MICROCYTOSIS SLIGHT; OVALOCYTES 1+; POIKILOCYTOSIS 1+; ROULEAUX SLIGHT; SCHISTOCYTES SLIGHT
[2017-08-25 10:19] LABS: LDH 3577 U/L (313-618)
[2017-08-25] MEDS: INSULIN LISPRO 100 UNIT/ML 3 ML VIAL SUBCUT PRN ×4 (11:34→22:33)
[2017-08-25] MEDS ORDERED: NORMAL SALINE 250 ML IV PRN ×2 (12:00)
[2017-08-25] MEDS: NORMAL SALINE 1000 ML 1,000 ML IV PRN (12:34)
[2017-08-25] MEDS ORDERED: FILGRASTIM INJ 480 MCG/1.6 ML VIAL SUBCUT ONE (13:00)
--- NOTE | 2017-08-25 18:56 | PDOC PROGRESS REPORT ---
Subjective Progress Note for:: 08/25/17 Subjective:: Patient denied any fever or chills. No chest pain or difficulty with breathing. No nausea, vomiting, or abdominal pain. Patient reported open woung on his right buttock region and mid torso muscle spasm since last clinical evaluation. Reason For Visit: RECURRENT DIFFUSE B CELL NON HODGKIN'S LYMPHOMA W Physical Exam Vital Signs: Temp Pulse Resp BP Pulse Ox 97.9 F 87 18 135/65 H 100 08/25/17 15:39 08/25/17 15:39 08/25/17 15:39 08/25/17 15:39 08/25/17 15:39 Intake & Output 08/24/17 08/25/17 08/26/17 06:59 06:59 06:59 Intake Total 2116 2424 201 Output Total 9191 3575 Balance -1359 -1151 201 Weight 95.2 kg Physical Exam: General appearance: PRESENT: no acute distress, well-developed, well-nourished Head exam: PRESENT: atraumatic, normocephalic Eye exam: PRESENT: conjunctiva pink, EOMI, PERRLA. ABSENT: scleral icterus Cardiovascular exam: PRESENT: RRR, +S1, +S2, tachycardia Vascular exam: PRESENT: normal capillary refill. ABSENT: pallor GI/Abdominal exam: PRESENT: normal bowel sounds, soft. ABSENT: distended, guarding, mass, organomegaly, rebound, tenderness Extremities exam: ABSENT: pedal edema Musculoskeletal exam: PRESENT: normal inspection Neurological exam: PRESENT: alert, awake, oriented to person, oriented to place , oriented to time, oriented to situation, CN II-XII grossly intact. ABSENT: motor sensory deficit Psychiatric exam: PRESENT: appropriate affect, normal mood. ABSENT: homicidal ideation, suicidal ideation Skin exam: PRESENT: dry, intact, warm. Resolving ecchymotic lesion RLQ site of prior administered Lovenox for DVT prophylaxis. ABSENT: cyanosis, rash Results Laboratory Results: 08/25/17 08:41 08/25/17 08:41 08/25/17 08/25/17 08/25/17 08:41 08:41 12:42 WBC 0.2 L* RBC 3.09 L Hgb 8.6 L Hct 24.3 L MCV 79 L MCH 27.9 MCHC 35.4 RDW 14.5 H Plt Count 4 L* Seg Neutrophils % 17.4 L Lymphocytes % 73.5 H Monocytes % 7.8 Eosinophils % 1.3 Basophils % 0.0 Absolute Neutrophils 0.0 L Absolute Lymphocytes 0.2 L Absolute Monocytes 0.0 L Absolute Eosinophils 0.0 Absolute Basophils 0.0 Sodium 134.4 L Potassium 3.8 Chloride 98 Carbon Dioxide 27 Anion Gap 9 BUN 19 Creatinine 0.80 Est GFR ( Amer) > 60 Est GFR (Non-Af Amer) > 60 Glucose 165 H Calcium 8.9 Total Bilirubin 0.8 AST 8 L ALT 34 Alkaline Phosphatase 116 Total Protein 5.6 L Albumin 3.5 Blood Type A POSITIVE Antibody Screen NEGATIVE Assessment & Plan - Diagnosis (1) Diffuse large B cell lymphoma Qualifiers: Lymphoma site: extranodal excluding spleen and other solid organs Qualified Code(s): C83.39 - Diffuse large B-cell lymphoma, extranodal and solid organ sites Is this a current diagnosis for this admission?: Yes (2) Thrombocytopenia Is this a current diagnosis for this admission?: Yes Plan: See attending physician orders. Patient will receive 2 bags of pheresis platelet transfusion. Monitor post transfusion CBC. he denied any active bleeding. (3) Diabetes mellitus type 2 in obese Is this a current diagnosis for this admission?: Yes (4) HTN (hypertension) Qualifiers: Hypertension type: essential hypertension Qualified Code(s): I10 - Essential (primary) hypertension Is this a current diagnosis for this admission?: Yes (5) HLD (hyperlipidemia) Qualifiers: Hyperlipidemia type: unspecified Qualified Code(s): E78.5 - Hyperlipidemia , unspecified Is this a current diagnosis for this admission?: Yes (6) Osteoarthritis involving multiple joints on both sides of body Is this a current diagnosis for this admission?: Yes (7) Pancytopenia Is this a current diagnosis for this admission?: Yes Plan: Related to his underlying lymphoma. Patient will receive Neupogen 480 mcg subcut x 1 dose. Monitor CBC indices and transfuse PRBC or Platelet as needed. (8) Superficial abrasion Is this a current diagnosis for this admission?: No Plan: Allevyn dressing application and change as needed. (9) Muscle spasm of back Is this a current diagnosis for this admission?: No Plan: Start on Soma 350 mg po bid prn for muscle spasm. Encourage mobility within his room due to his current reverse isolation status. - Time Time Spent with patient: 25-34 minutes Medications reviewed and adjusted accordingly: Yes Anticipated discharge: Home Within: Other - Inpatient Certification Based on my medical assessment, after consideration of the patient's comorbidities, presenting symptoms, or acuity I expect that the services needed warrant INPATIENT care.: Yes I certify that my determination is in accordance with my understanding of Medicare's requirements for reasonable and necessary INPATIENT services [42 CFR 412.3e].: Yes Medical Necessity: Need Close Monitoring Due to Risk of Patient Decompensation, Need For IV Fluids, Need For Continuous Telemetry Monitoring, Need for Pain Control, Risk of Complication if Not Cared For in Hospital Post Hospital Care: D/C Rn Access Documentation - Plan Summary Plan Summary: Continue supportive management with regard to his pancytopenia.
[2017-08-25] MEDS ORDERED: INSULIN LISPRO 100 UNIT/ML 3 ML VIAL SUBCUT ONE (19:00)
[2017-08-26] MEDS: LANSOPRAZOLE 30 MG TAB.RAP.DR PO SCH (06:58)
[2017-08-26] MEDS: NATEGLINIDE 60 MG TABLET PO SCH ×3 (08:25→17:21)
[2017-08-26] MEDS: PIOGLITAZONE HCL 30 MG TABLET PO SCH (10:37)
[2017-08-26] MEDS: AMLODIPINE BESYLATE 5 MG TABLET PO SCH (10:37)
[2017-08-26] MEDS: BENAZEPRIL HCL 20 MG TABLET PO SCH (10:37)
[2017-08-26] MEDS: PREDNISONE 20 MG TABLET PO SCH (10:37)
[2017-08-26] MEDS: DOCUSATE SODIUM 100 MG CAPSULE PO SCH (10:38)
[2017-08-26] MEDS: ALLOPURINOL 300 MG TABLET PO SCH (10:38)
[2017-08-26] MEDS: GLIMEPIRIDE 4 MG TABLET PO SCH (10:38)
[2017-08-26] MEDS: INSULIN LISPRO 100 UNIT/ML 3 ML VIAL SUBCUT PRN ×2 (11:45→18:16)
--- NOTE | 2017-08-26 15:45 | PDOC PROGRESS REPORT ---
Subjective Progress Note for:: 08/26/17 Subjective:: Patient denied any fever or chills. No chest pain or difficulty with breathing. No nausea, vomiting, or abdominal pain. Patient denied any unusual bleeding. Reason For Visit: RECURRENT DIFFUSE B CELL NON HODGKIN'S LYMPHOMA W Physical Exam Vital Signs: Temp Pulse Resp BP Pulse Ox 97.8 F 85 18 126/56 H 100 08/26/17 11:04 08/26/17 11:04 08/26/17 11:04 08/26/17 11:04 08/26/17 11:04 Intake & Output 08/25/17 08/26/17 08/27/17 06:59 06:59 06:59 Intake Total 2424 2312 Output Total 3575 2300 Balance -1151 12 Weight 95.2 kg Physical Exam: General appearance: PRESENT: no acute distress, well-developed, well-nourished Head exam: PRESENT: atraumatic, normocephalic Eye exam: PRESENT: conjunctiva pink, EOMI, PERRLA. ABSENT: scleral icterus Cardiovascular exam: PRESENT: RRR, +S1, +S2, tachycardia Vascular exam: PRESENT: normal capillary refill. ABSENT: pallor GI/Abdominal exam: PRESENT: normal bowel sounds, soft. ABSENT: distended, guarding, mass, organomegaly, rebound, tenderness Extremities exam: ABSENT: pedal edema Musculoskeletal exam: PRESENT: normal inspection Neurological exam: PRESENT: alert, awake, oriented to person, oriented to place , oriented to time, oriented to situation, CN II-XII grossly intact. ABSENT: motor sensory deficit Psychiatric exam: PRESENT: appropriate affect, normal mood. ABSENT: homicidal ideation, suicidal ideation Skin exam: PRESENT: dry, intact, warm. Resolving ecchymotic lesion RLQ site of prior administered Lovenox for DVT prophylaxis. ABSENT: cyanosis, rash Results Laboratory Results: 08/25/17 08:41 08/25/17 08:41 08/25/17 12:42 Blood Type A POSITIVE Antibody Screen NEGATIVE Assessment & Plan - Diagnosis (1) Diffuse large B cell lymphoma Qualifiers: Lymphoma site: extranodal excluding spleen and other solid organs Qualified Code(s): C83.39 - Diffuse large B-cell lymphoma, extranodal and solid organ sites Is this a current diagnosis for this admission?: Yes (2) Thrombocytopenia Is this a current diagnosis for this admission?: Yes (3) Diabetes mellitus type 2 in obese Is this a current diagnosis for this admission?: Yes (4) HTN (hypertension) Qualifiers: Hypertension type: essential hypertension Qualified Code(s): I10 - Essential (primary) hypertension Is this a current diagnosis for this admission?: Yes (5) HLD (hyperlipidemia) Qualifiers: Hyperlipidemia type: unspecified Qualified Code(s): E78.5 - Hyperlipidemia , unspecified Is this a current diagnosis for this admission?: Yes (6) Osteoarthritis involving multiple joints on both sides of body Is this a current diagnosis for this admission?: Yes (7) Pancytopenia Is this a current diagnosis for this admission?: Yes (8) Superficial abrasion Is this a current diagnosis for this admission?: No (9) Muscle spasm of back Is this a current diagnosis for this admission?: No - Time Time Spent with patient: 25-34 minutes Medications reviewed and adjusted accordingly: Yes Anticipated discharge: Home Within: Other - Inpatient Certification Based on my medical assessment, after consideration of the patient's comorbidities, presenting symptoms, or acuity I expect that the services needed warrant INPATIENT care.: Yes I certify that my determination is in accordance with my understanding of Medicare's requirements for reasonable and necessary INPATIENT services [42 CFR 412.3e].: Yes Medical Necessity: Need For IV Fluids, Need For Continuous Telemetry Monitoring , Risk of Complication if Not Cared For in Hospital Post Hospital Care: D/C Rotary Helper Documentation - Plan Summary Plan Summary: Decrease Prednisone to 60 mg po daily with intent to taper off over next couple of days. Follow up on pending labs. Discussed case with hem/onc regarding prednisone therapy component of his treatment. Should have been for 5 days total. May allow discharge home if Platelet count is above 10 and WBC over 3 and absence of fever. Otherwise agreed with all ongoing care plan.
[2017-08-26 16:19] LABS: HEMATOCRIT 22.5 % (37.9-51.0); HGB HCT DIFFERENCE 1.5; MEAN CORPUSCULAR HEMOGLOBIN 27.9 pg (27.0-33.4); MEAN CORPUSCULAR HGB CONC 35.3 g/dL (32.0-36.0); MEAN CORPUSCULAR VOLUME 79 fl (80-97); RED BLOOD COUNT 2.85 10^6/uL (4.35-5.55); RED CELL DISTRIBUTION WIDTH 14.3 % (11.5-14.0)
[2017-08-26 17:08] LABS: WHITE BLOOD COUNT 0.2 10^3/uL (4.0-10.5)
[2017-08-26] MEDS ORDERED: NORMAL SALINE 250 ML IV PRN ×2 (17:18)
[2017-08-26] MEDS ORDERED: FILGRASTIM INJ 480 MCG/1.6 ML VIAL SUBCUT ONE (19:00)
[2017-08-27] MEDS: CARISOPRODOL 350 MG TABLET PO PRN ×3 (00:35→22:58)
[2017-08-27] MEDS: INSULIN LISPRO 100 UNIT/ML 3 ML VIAL SUBCUT PRN ×4 (00:35→22:58)
[2017-08-27] MEDS: LANSOPRAZOLE 30 MG TAB.RAP.DR PO SCH (06:07)
[2017-08-27] MEDS: NATEGLINIDE 60 MG TABLET PO SCH ×3 (07:52→17:22)
[2017-08-27] MEDS: GLIMEPIRIDE 4 MG TABLET PO SCH (09:51)
[2017-08-27] MEDS: ALLOPURINOL 300 MG TABLET PO SCH (09:52)
[2017-08-27] MEDS: PIOGLITAZONE HCL 30 MG TABLET PO SCH (09:52)
[2017-08-27] MEDS: AMLODIPINE BESYLATE 5 MG TABLET PO SCH (09:52)
[2017-08-27] MEDS: PREDNISONE 20 MG TABLET PO SCH (09:54)
[2017-08-27] MEDS: BENAZEPRIL HCL 20 MG TABLET PO SCH (09:55)
[2017-08-27] MEDS: DOCUSATE SODIUM 100 MG CAPSULE PO SCH (09:55)
--- NOTE | 2017-08-27 10:36 | PDOC PROGRESS REPORT ---
Subjective Progress Note for:: 08/27/17 Subjective:: Patient is currently doing well Since denied any chest pain denied any shortness of the breath Denied any blood in the stools denied any blood in the urine Since platelet count was 7 and patients getting the blood transfusions Reason For Visit: RECURRENT DIFFUSE B CELL NON HODGKIN'S LYMPHOMA W Physical Exam Vital Signs: Temp Pulse Resp BP Pulse Ox 98.7 F 85 18 143/64 H 100 08/27/17 03:22 08/27/17 07:00 08/27/17 03:22 08/27/17 03:22 08/27/17 03:22 Intake & Output 08/26/17 08/27/17 08/28/17 06:59 06:59 06:59 Intake Total 2312 2163 Output Total 2300 2200 Balance 12 -37 Weight 93 kg General appearance: PRESENT: no acute distress, well-developed, well-nourished Head exam: PRESENT: atraumatic, normocephalic Eye exam: PRESENT: conjunctiva pink, EOMI, PERRLA. ABSENT: scleral icterus Ear exam: PRESENT: normal external ear exam Mouth exam: PRESENT: moist, tongue midline Neck exam: PRESENT: full ROM. ABSENT: carotid bruit, JVD, lymphadenopathy, thyromegaly Respiratory exam: PRESENT: clear to auscultation jihan Cardiovascular exam: PRESENT: RRR. ABSENT: diastolic murmur, rubs, systolic murmur Pulses: PRESENT: normal dorsalis pedis pul, +2 pedal pulses bilateral Vascular exam: PRESENT: normal capillary refill GI/Abdominal exam: PRESENT: normal bowel sounds, soft. ABSENT: distended, guarding, mass, organolmegaly, rebound, tenderness Rectal exam: PRESENT: deferred Extremities exam: ABSENT: full ROM, left AKA, right AKA, left BKA, right BKA, calf tenderness, joint swelling, pedal edema, tenderness, other Neurological exam: PRESENT: alert, awake, oriented to person, oriented to place , oriented to time, oriented to situation, CN II-XII grossly intact. ABSENT: motor sensory deficit Psychiatric exam: PRESENT: appropriate affect, normal mood. ABSENT: homicidal ideation, suicidal ideation Skin exam: PRESENT: dry, intact, warm. ABSENT: cyanosis, rash Results Laboratory Results: 08/26/17 16:00 08/25/17 08:41 08/25/17 08/26/17 12:42 16:00 WBC 0.2 L* RBC 2.85 L Hgb 8.0 L Hct 22.5 L MCV 79 L MCH 27.9 MCHC 35.3 RDW 14.3 H Plt Count 7 L* Blood Type A POSITIVE Antibody Screen NEGATIVE Assessment & Plan - Diagnosis (1) Diffuse large B cell lymphoma Qualifiers: Lymphoma site: extranodal excluding spleen and other solid organs Qualified Code(s): C83.39 - Diffuse large B-cell lymphoma, extranodal and solid organ sites Is this a current diagnosis for this admission?: Yes (2) Pancytopenia Is this a current diagnosis for this admission?: Yes (3) Diabetes mellitus type 2 in obese Is this a current diagnosis for this admission?: Yes (4) HLD (hyperlipidemia) Qualifiers: Hyperlipidemia type: unspecified Qualified Code(s): E78.5 - Hyperlipidemia , unspecified Is this a current diagnosis for this admission?: Yes (5) HTN (hypertension) Qualifiers: Hypertension type: essential hypertension Qualified Code(s): I10 - Essential (primary) hypertension Is this a current diagnosis for this admission?: Yes - Time Time Spent with patient: 15-24 minutes Medications reviewed and adjusted accordingly: Yes Anticipated discharge: Other Within: Other - Inpatient Certification Medical Necessity: Need Close Monitoring Due to Risk of Patient Decompensation Post Hospital Care: D/C Record Maker Documentation - Plan Summary Plan Summary: Check a CBC and according to the attendings physicians is more than 10 we will hold the transfusions for platelet count It is currently not actively bleeding This discuss with the nursing staff to fall precautions
[2017-08-27 11:28] LABS: ABSOLUTE LYMPHOCYTES (AUTO) 0.2 10^3/uL (0.5-4.7); ABSOLUTE MONOCYTES (AUTO) 0.2 10^3/uL (0.1-1.4); ABSOLUTE NEUT (AUTO) 0.2 10^3/uL (1.7-8.2); BASOPHILS % (AUTO) 1.5 % (0-2); HEMATOCRIT 21.9 % (37.9-51.0); HGB HCT DIFFERENCE 0.9; LYMPHOCYTES % (AUTO) 36.4 % (13-45); MEAN CORPUSCULAR HEMOGLOBIN 27.5 pg (27.0-33.4); MEAN CORPUSCULAR HGB CONC 34.7 g/dL (32.0-36.0); MEAN CORPUSCULAR VOLUME 79 fl (80-97); MONOCYTES % (AUTO) 30.6 % (3-13); RED BLOOD COUNT 2.76 10^6/uL (4.35-5.55); RED CELL DISTRIBUTION WIDTH 14.6 % (11.5-14.0); SEGMENTED NEUTROPHILS % (AUTO) 30.5 % (42-78)
[2017-08-27 12:13] LABS: HEMOGLOBIN 7.6 g/dL (13.5-17.0)
[2017-08-27 12:50] LABS: WHITE BLOOD COUNT 0.5 10^3/uL (4.0-10.5)
[2017-08-27] MEDS: NORMAL SALINE 1000 ML 1,000 ML IV PRN (22:59)
[2017-08-28 05:39] LABS: ANION GAP 7 (5-19); BLOOD UREA NITROGEN 16 mg/dL (7-20); CALCIUM 9.1 mg/dL (8.4-10.2); CARBON DIOXIDE 29 mmol/L (22-30); CHLORIDE 99 mmol/L (98-107); CREATININE RESULT 0.86 mg/dL (0.52-1.25); GLUCOSE 121 mg/dL (75-110); POTASSIUM 3.9 mmol/L (3.6-5.0); SODIUM 134.9 mmol/L (137-145)
[2017-08-28] MEDS: LANSOPRAZOLE 30 MG TAB.RAP.DR PO SCH (05:56)
[2017-08-28 07:43] LABS: HEMATOCRIT 22.1 % (37.9-51.0); MEAN CORPUSCULAR HEMOGLOBIN 27.9 pg (27.0-33.4); MEAN CORPUSCULAR HGB CONC 34.9 g/dL (32.0-36.0); MEAN CORPUSCULAR VOLUME 80 fl (80-97); RED BLOOD COUNT 2.77 10^6/uL (4.35-5.55); RED CELL DISTRIBUTION WIDTH 14.8 % (11.5-14.0)
[2017-08-28] MEDS: NATEGLINIDE 60 MG TABLET PO SCH ×3 (07:57→16:32)
[2017-08-28 08:36] LABS: BAND NEUTROPHILS % (MANUAL) 14 % (3-5); BASOPHILS % (MANUAL) 0 % (0-2); EOSINOPHILS % (MANUAL) 2 % (0-6); LYMPHOCYTES % (MANUAL) 30 % (13-45); NUCLEATED RED BLOOD CELLS 22 /100 WBC (0); TOTAL CELLS COUNTED 50
[2017-08-28 08:46] LABS: ANISOCYTOSIS 1+; HYPOCHROMASIA SLIGHT; MICROCYTOSIS SLIGHT; OVALOCYTES SLIGHT; POIKILOCYTOSIS SLIGHT; POLYCHROMASIA SLIGHT
[2017-08-28 08:47] LABS: TOXIC GRANULATION SLIGHT
[2017-08-28 08:53] LABS: WHITE BLOOD COUNT 1.5 10^3/uL (4.0-10.5)
[2017-08-28 08:54] LABS: HEMOGLOBIN 7.7 g/dL (13.5-17.0)
[2017-08-28] MEDS: DOCUSATE SODIUM 100 MG CAPSULE PO SCH (09:57)
[2017-08-28] MEDS: GLIMEPIRIDE 4 MG TABLET PO SCH (09:57)
[2017-08-28] MEDS: ALLOPURINOL 300 MG TABLET PO SCH (09:57)
[2017-08-28] MEDS: CARISOPRODOL 350 MG TABLET PO PRN ×2 (09:58→18:34)
[2017-08-28] MEDS: AMLODIPINE BESYLATE 5 MG TABLET PO SCH (09:58)
[2017-08-28] MEDS: PIOGLITAZONE HCL 30 MG TABLET PO SCH (09:58)
[2017-08-28] MEDS: BENAZEPRIL HCL 20 MG TABLET PO SCH (09:58)
[2017-08-28] MEDS: PREDNISONE 20 MG TABLET PO SCH (09:59)
--- NOTE | 2017-08-28 11:00 | PDOC PROGRESS REPORT ---
Subjective Progress Note for:: 08/28/17 Subjective:: Patient is currently doing fair Patient's denied any blood in the stools denied any blood in the urine denied any nosebleed patient's platelet count is 15 Reason For Visit: RECURRENT DIFFUSE B CELL NON HODGKIN'S LYMPHOMA W Physical Exam Vital Signs: Temp Pulse Resp BP Pulse Ox 97.6 F 84 16 138/61 H 100 08/28/17 07:24 08/28/17 07:24 08/28/17 07:24 08/28/17 07:24 08/28/17 07:24 Intake & Output 08/27/17 08/28/17 08/29/17 06:59 06:59 06:59 Intake Total 2163 1080 Output Total 2200 1500 Balance -37 -420 Weight 93 kg General appearance: PRESENT: no acute distress, well-developed, well-nourished Head exam: PRESENT: atraumatic, normocephalic Eye exam: PRESENT: conjunctiva pink, EOMI, PERRLA. ABSENT: scleral icterus Ear exam: PRESENT: normal external ear exam Mouth exam: PRESENT: moist, tongue midline Neck exam: PRESENT: full ROM. ABSENT: carotid bruit, JVD, lymphadenopathy, thyromegaly Respiratory exam: PRESENT: clear to auscultation jihan Cardiovascular exam: PRESENT: RRR. ABSENT: diastolic murmur, rubs, systolic murmur Pulses: PRESENT: normal dorsalis pedis pul, +2 pedal pulses bilateral Vascular exam: PRESENT: normal capillary refill GI/Abdominal exam: PRESENT: normal bowel sounds, soft. ABSENT: distended, guarding, mass, organolmegaly, rebound, tenderness Rectal exam: PRESENT: deferred Extremities exam: ABSENT: full ROM, left AKA, right AKA, left BKA, right BKA, calf tenderness, joint swelling, pedal edema, tenderness, other Neurological exam: PRESENT: alert, awake, oriented to person, oriented to place , oriented to time, oriented to situation, CN II-XII grossly intact. ABSENT: motor sensory deficit Psychiatric exam: PRESENT: appropriate affect, normal mood. ABSENT: homicidal ideation, suicidal ideation Skin exam: PRESENT: dry, intact, warm. ABSENT: cyanosis, rash Results Laboratory Results: 08/28/17 05:04 08/28/17 05:04 08/27/17 08/28/17 08/28/17 10:43 05:04 05:04 WBC 0.5 L* 1.5 L* RBC 2.76 L 2.77 L Hgb 7.6 L 7.7 L Hct 21.9 L 22.1 L MCV 79 L 80 MCH 27.5 27.9 MCHC 34.7 34.9 RDW 14.6 H 14.8 H Plt Count 18 L* D 15 L* Seg Neutrophils % 30.5 L Not Reportable Lymphocytes % 36.4 Not Reportable Monocytes % 30.6 H Not Reportable Eosinophils % 1.0 Not Reportable Basophils % 1.5 Not Reportable Absolute Neutrophils 0.2 L Not Reportable Absolute Lymphocytes 0.2 L Not Reportable Absolute Monocytes 0.2 Not Reportable Absolute Eosinophils 0.0 Not Reportable Absolute Basophils 0.0 Not Reportable Sodium 134.9 L Potassium 3.9 Chloride 99 Carbon Dioxide 29 Anion Gap 7 BUN 16 Creatinine 0.86 Est GFR ( Amer) > 60 Est GFR (Non-Af Amer) > 60 Glucose 121 H Calcium 9.1 Assessment & Plan - Diagnosis (1) Diffuse large B cell lymphoma Qualifiers: Lymphoma site: extranodal excluding spleen and other solid organs Qualified Code(s): C83.39 - Diffuse large B-cell lymphoma, extranodal and solid organ sites Is this a current diagnosis for this admission?: Yes Plan: Follow with the outpatients Dr. Samaniego (2) Pancytopenia Is this a current diagnosis for this admission?: Yes Plan: currently all stable (3) Diabetes mellitus type 2 in obese Is this a current diagnosis for this admission?: Yes (4) HLD (hyperlipidemia) Qualifiers: Hyperlipidemia type: unspecified Qualified Code(s): E78.5 - Hyperlipidemia , unspecified Is this a current diagnosis for this admission?: Yes (5) HTN (hypertension) Qualifiers: Hypertension type: essential hypertension Qualified Code(s): I10 - Essential (primary) hypertension Is this a current diagnosis for this admission?: Yes - Time Time Spent with patient: 15-24 minutes Medications reviewed and adjusted accordingly: Yes Anticipated discharge: Home Within: Other - Inpatient Certification Medical Necessity: Need Close Monitoring Due to Risk of Patient Decompensation Post Hospital Care: D/C Clerk Checker Documentation - Plan Summary Plan Summary: Continues to hold the transfusions due to the possible development of body will repeat the blood work in the morning
[2017-08-28] MEDS: INSULIN LISPRO 100 UNIT/ML 3 ML VIAL SUBCUT PRN ×3 (11:59→21:13)
[2017-08-29] MEDS: LANSOPRAZOLE 30 MG TAB.RAP.DR PO SCH (05:02)
[2017-08-29 06:18] LABS: ANION GAP 6 (5-19); BLOOD UREA NITROGEN 13 mg/dL (7-20); CALCIUM 9.1 mg/dL (8.4-10.2); CARBON DIOXIDE 29 mmol/L (22-30); CHLORIDE 100 mmol/L (98-107); CREATININE RESULT 0.93 mg/dL (0.52-1.25); GLUCOSE 124 mg/dL (75-110); POTASSIUM 3.9 mmol/L (3.6-5.0); SODIUM 134.8 mmol/L (137-145)
[2017-08-29] MEDS: PREDNISONE 20 MG TABLET PO SCH (09:01)
[2017-08-29] MEDS: PIOGLITAZONE HCL 30 MG TABLET PO SCH (09:01)
[2017-08-29] MEDS: AMLODIPINE BESYLATE 5 MG TABLET PO SCH (09:01)
[2017-08-29] MEDS: ALLOPURINOL 300 MG TABLET PO SCH (09:01)
[2017-08-29] MEDS: BENAZEPRIL HCL 20 MG TABLET PO SCH (09:02)
[2017-08-29] MEDS: DOCUSATE SODIUM 100 MG CAPSULE PO SCH (09:02)
[2017-08-29] MEDS: GLIMEPIRIDE 4 MG TABLET PO SCH (09:02)
[2017-08-29] MEDS: NATEGLINIDE 60 MG TABLET PO SCH ×3 (09:02→16:25)
[2017-08-29] MEDS: INSULIN LISPRO 100 UNIT/ML 3 ML VIAL SUBCUT PRN ×3 (11:41→21:39)
[2017-08-29 15:46] LABS: HEMATOCRIT 22.1 % (37.9-51.0); HGB HCT DIFFERENCE 1.6; MEAN CORPUSCULAR HEMOGLOBIN 28.5 pg (27.0-33.4); MEAN CORPUSCULAR HGB CONC 35.6 g/dL (32.0-36.0); MEAN CORPUSCULAR VOLUME 80 fl (80-97); RED BLOOD COUNT 2.77 10^6/uL (4.35-5.55); RED CELL DISTRIBUTION WIDTH 14.9 % (11.5-14.0)
[2017-08-29 16:05] LABS: WHITE BLOOD COUNT 5.6 10^3/uL (4.0-10.5)
[2017-08-29 16:16] LABS: BASOPHILS % (MANUAL) 0 % (0-2); EOSINOPHILS % (MANUAL) 0 % (0-6); LYMPHOCYTES % (MANUAL) 12 % (13-45); NUCLEATED RED BLOOD CELLS 2 /100 WBC (0); TOTAL CELLS COUNTED 100
[2017-08-29 16:24] LABS: ANISOCYTOSIS SLIGHT; TOXIC GRANULATION 2+
[2017-08-29 16:25] LABS: OVALOCYTES SLIGHT; SCHISTOCYTES 1+; TEAR DROP CELLS 1+
[2017-08-29] MEDS: NORMAL SALINE 1000 ML 1,000 ML IV PRN (16:34)
--- NOTE | 2017-08-29 18:10 | PDOC PROGRESS REPORT ---
Subjective Progress Note for:: 08/29/17 Subjective:: Patient denied any chest pain or difficulty with breathing. No unusual bleeding , fever or chills. No nausea, vomiting, or abdominal pain. Reason For Visit: RECURRENT DIFFUSE B CELL NON HODGKIN'S LYMPHOMA W Physical Exam Vital Signs: Temp Pulse Resp BP Pulse Ox 98.2 F 95 18 118/54 L 99 08/29/17 15:00 08/29/17 15:00 08/29/17 15:00 08/29/17 15:00 08/29/17 15:00 Intake & Output 08/28/17 08/29/17 08/30/17 06:59 06:59 06:59 Intake Total 1080 1200 1405 Output Total 1500 2375 700 Balance -420 -1175 705 Physical Exam: General appearance: PRESENT: no acute distress, well-developed, well-nourished Head exam: PRESENT: atraumatic, normocephalic Eye exam: PRESENT: conjunctiva pink, EOMI, PERRLA. ABSENT: scleral icterus Cardiovascular exam: PRESENT: RRR, +S1, +S2, tachycardia Vascular exam: PRESENT: normal capillary refill. ABSENT: pallor GI/Abdominal exam: PRESENT: normal bowel sounds, soft. ABSENT: distended, guarding, mass, organomegaly, rebound, tenderness Extremities exam: ABSENT: pedal edema Musculoskeletal exam: PRESENT: normal inspection Neurological exam: PRESENT: alert, awake, oriented to person, oriented to place , oriented to time, oriented to situation, CN II-XII grossly intact. ABSENT: motor sensory deficit Psychiatric exam: PRESENT: appropriate affect, normal mood. ABSENT: homicidal ideation, suicidal ideation Skin exam: PRESENT: dry, intact, warm. Resolving ecchymotic lesion RLQ site of prior administered Lovenox for DVT prophylaxis. ABSENT: cyanosis, rash Results Laboratory Results: 08/29/17 15:30 08/29/17 05:14 08/29/17 08/29/17 05:14 15:30 WBC 5.6 D RBC 2.77 L Hgb 7.9 L Hct 22.1 L MCV 80 MCH 28.5 MCHC 35.6 RDW 14.9 H Plt Count 12 L* Seg Neutrophils % Not Reportable Lymphocytes % Not Reportable Monocytes % Not Reportable Eosinophils % Not Reportable Basophils % Not Reportable Absolute Neutrophils Not Reportable Absolute Lymphocytes Not Reportable Absolute Monocytes Not Reportable Absolute Eosinophils Not Reportable Absolute Basophils Not Reportable Sodium 134.8 L Potassium 3.9 Chloride 100 Carbon Dioxide 29 Anion Gap 6 BUN 13 Creatinine 0.93 Est GFR ( Amer) > 60 Est GFR (Non-Af Amer) > 60 Glucose 124 H Calcium 9.1 Assessment & Plan - Diagnosis (1) Diffuse large B cell lymphoma Qualifiers: Lymphoma site: extranodal excluding spleen and other solid organs Qualified Code(s): C83.39 - Diffuse large B-cell lymphoma, extranodal and solid organ sites Is this a current diagnosis for this admission?: Yes (2) Thrombocytopenia Is this a current diagnosis for this admission?: Yes (3) Diabetes mellitus type 2 in obese Is this a current diagnosis for this admission?: Yes (4) HTN (hypertension) Qualifiers: Hypertension type: essential hypertension Qualified Code(s): I10 - Essential (primary) hypertension Is this a current diagnosis for this admission?: Yes (5) HLD (hyperlipidemia) Qualifiers: Hyperlipidemia type: unspecified Qualified Code(s): E78.5 - Hyperlipidemia , unspecified Is this a current diagnosis for this admission?: Yes (6) Osteoarthritis involving multiple joints on both sides of body Is this a current diagnosis for this admission?: Yes (7) Pancytopenia Is this a current diagnosis for this admission?: Yes Plan: Related to his underlying lymphoma. Patient will receive 2 bags of pheresis platelet transfusion. (8) Superficial abrasion Is this a current diagnosis for this admission?: No (9) Muscle spasm of back Is this a current diagnosis for this admission?: No - Time Time Spent with patient: 25-34 minutes Medications reviewed and adjusted accordingly: Yes Anticipated discharge: Home Within: within 24 hours - Inpatient Certification Based on my medical assessment, after consideration of the patient's comorbidities, presenting symptoms, or acuity I expect that the services needed warrant INPATIENT care.: Yes I certify that my determination is in accordance with my understanding of Medicare's requirements for reasonable and necessary INPATIENT services [42 CFR 412.3e].: Yes Medical Necessity: Need For IV Fluids, Need For Continuous Telemetry Monitoring , Risk of Complication if Not Cared For in Hospital Post Hospital Care: D/C Masonry Teacher Documentation - Plan Summary Plan Summary: Continue current management. he will receive 2 bags of pheresis platelet tonight. If count remain above 10,000 consider discharge home isaiorrow.
[2017-08-29] MEDS ORDERED: NORMAL SALINE 250 ML IV PRN ×2 (18:32)
[2017-08-29] MEDS: CARISOPRODOL 350 MG TABLET PO PRN (21:43)
[2017-08-30] MEDS: LANSOPRAZOLE 30 MG TAB.RAP.DR PO SCH (05:09)
[2017-08-30 05:54] LABS: HEMATOCRIT 20.3 % (37.9-51.0); HGB HCT DIFFERENCE 1.9; MEAN CORPUSCULAR HGB CONC 36.4 g/dL (32.0-36.0); MEAN CORPUSCULAR VOLUME 83 fl (80-97); RED BLOOD COUNT 2.47 10^6/uL (4.35-5.55); WHITE BLOOD COUNT 6.4 10^3/uL (4.0-10.5)
[2017-08-30 06:00] LABS: ANION GAP 8 (5-19); BLOOD UREA NITROGEN 14 mg/dL (7-20); CALCIUM 8.9 mg/dL (8.4-10.2); CARBON DIOXIDE 28 mmol/L (22-30); CHLORIDE 102 mmol/L (98-107); CREATININE RESULT 0.89 mg/dL (0.52-1.25); GLUCOSE 111 mg/dL (75-110); POTASSIUM 3.7 mmol/L (3.6-5.0); SODIUM 137.8 mmol/L (137-145)
[2017-08-30 06:18] LABS: HEMOGLOBIN 7.4 g/dL (13.5-17.0)
[2017-08-30 07:11] LABS: TOTAL CELLS COUNTED 100
[2017-08-30 07:12] LABS: BASOPHILS % (MANUAL) 0 % (0-2); EOSINOPHILS % (MANUAL) 0 % (0-6); LYMPHOCYTES % (MANUAL) 10 % (13-45); NUCLEATED RED BLOOD CELLS 4 /100 WBC (0)
[2017-08-30 07:13] LABS: ANISOCYTOSIS SLIGHT; POLYCHROMASIA SLIGHT; TEAR DROP CELLS SLIGHT
[2017-08-30 07:16] LABS: SCHISTOCYTES SLIGHT
[2017-08-30 07:38] LABS: HEMOGLOBIN 7.9 g/dL (13.5-17.0)
[2017-08-30] MEDS: NATEGLINIDE 60 MG TABLET PO SCH ×3 (08:19→16:54)
[2017-08-30] MEDS: DOCUSATE SODIUM 100 MG CAPSULE PO SCH (09:44)
[2017-08-30] MEDS: GLIMEPIRIDE 4 MG TABLET PO SCH (09:44)
[2017-08-30] MEDS: BENAZEPRIL HCL 20 MG TABLET PO SCH (09:45)
[2017-08-30] MEDS: AMLODIPINE BESYLATE 5 MG TABLET PO SCH (09:45)
[2017-08-30] MEDS: ALLOPURINOL 300 MG TABLET PO SCH (09:45)
[2017-08-30] MEDS: PIOGLITAZONE HCL 30 MG TABLET PO SCH (09:46)
[2017-08-30] MEDS: PREDNISONE 20 MG TABLET PO SCH (09:46)
[2017-08-30] MEDS: INSULIN LISPRO 100 UNIT/ML 3 ML VIAL SUBCUT PRN ×2 (11:50→16:56)
[2017-08-30 15:49] LABS: HEMOGLOBIN 8.4 g/dL (13.5-17.0); HGB HCT DIFFERENCE 1.2; MEAN CORPUSCULAR HEMOGLOBIN 28.9 pg (27.0-33.4); MEAN CORPUSCULAR VOLUME 83 fl (80-97); RED CELL DISTRIBUTION WIDTH 14.9 % (11.5-14.0); WHITE BLOOD COUNT 6.8 10^3/uL (4.0-10.5)
[2017-08-30 16:21] LABS: EOSINOPHILS % (MANUAL) 0 % (0-6); TOTAL CELLS COUNTED 100
[2017-08-30 16:26] LABS: ANISOCYTOSIS SLIGHT; OVALOCYTES SLIGHT; POIKILOCYTOSIS SLIGHT; SCHISTOCYTES SLIGHT; TOXIC GRANULATION 1+
--- NOTE | 2017-08-30 18:56 | PDOC DISCHARGE SUMMARY ---
General - Admit/Disc Date/PCP Admission Date/Primary Care Provider: 08/15/17 14:16 PREETHI FUENTES Discharge Date: 08/30/17 - Discharge Diagnosis (1) Diffuse large B cell lymphoma Is this a current diagnosis for this admission?: Yes (2) Thrombocytopenia Is this a current diagnosis for this admission?: Yes (3) Diabetes mellitus type 2 in obese Is this a current diagnosis for this admission?: Yes (4) HTN (hypertension) Is this a current diagnosis for this admission?: Yes (5) HLD (hyperlipidemia) Is this a current diagnosis for this admission?: Yes (6) Osteoarthritis involving multiple joints on both sides of body Is this a current diagnosis for this admission?: Yes (7) Pancytopenia Is this a current diagnosis for this admission?: Yes (8) Superficial abrasion Is this a current diagnosis for this admission?: No (9) Muscle spasm of back Is this a current diagnosis for this admission?: No - Additional Information Resuscitation Status: Full Code Prescriptions: Carisoprodol [Soma 350 mg Tablet] 350 mg PO Q8HP PRN #30 tablet PRN Reason: muscle spasm pain Oxycodone HCl/Acetaminophen [Percocet 5-325 mg Tablet] 1 tab PO Q4HP PRN #60 tablet PRN Reason: Prednisone 5 mg PO ASDIR PRN #16 tablet PRN Reason: Home Medications: Allopurinol [Zyloprim 300 mg Tablet] 300 mg PO DAILY 08/15/17 Amlodipine Besylate [Norvasc 5 mg Tablet] 5 mg PO DAILY 08/15/17 Ammonium Lactate [Lac-Hydrin 12% Lotion 225Gm/Bottle] 1 applic TOP TIDP PRN 12/27 Atorvastatin Calcium [Lipitor 20 mg Tablet] 20 mg PO QHS 08/15/17 Benazepril HCl [Lotensin] 40 mg PO DAILY 08/15/17 Esomeprazole Magnesium [Nexium] 40 mg PO Q6AM 08/15/17 Hydroxyzine HCl [Atarax 25 mg Tablet] 25 mg PO Q6HP PRN 08/15/17 Insulin Lispro [Humalog Kwikpen U-100] 0 units SQ ASDIR PRN 08/15/17 Nateglinide [Starlix] 120 mg PO MEALS 08/15/17 Oxycodone HCl/Acetaminophen [Percocet 5-325 mg Tablet] 1 tab PO Q4HP PRN Pioglitazone HCl/Glimepiride [Pioglitazone-Glimepiride 30-4] 1 tab PO DAILY 12/27 Carisoprodol [Soma 350 mg Tablet] 350 mg PO Q8HP PRN #30 tablet 08/30/17 Oxycodone HCl/Acetaminophen [Percocet 5-325 mg Tablet] 1 tab PO Q4HP PRN #60 tablet 08/30/17 Prednisone 5 mg PO ASDIR PRN #16 tablet 08/30/17 History of Present Illness History of Present Illness: CRISTEL PRESSLEY is a 71 year old male known to my practice who was discharged home from this facility on 08/12/17 following admission for recurrent Non Hodgkin's lymphoma with thrombocytopenia, anemia and elevated LDH and Uric acid levels. He was admitted for concern about recurrence of his NHL with possible tumor lysis. He was seen in consultation by his medical oncologist, Dr. Samaniego , There was intent to have his retro peritoneal mass biopsy on outpatient today. patient reported that upon returning home from [place] yesterday and eating cereal, he subsequently vomited and this continue with each attempt with eating thereafter. There is associated constipation with last bowel movement on 08/12/17. He localized his pain initiation in the abdomen, radiate into his back and eventually into his legs. Patient reported compliance with prescribed Prednisone upon discharge. Also, he was discharged home on Allopurinol therapy. He denied any flank pain, hematuria, hematemesis, or hematochexia. No epistaxis , headache or dizziness. No itching but felt that his skin is very dry. His initial evaluation in the ED was remarkable for significant thrombocytopenia, and continued elevation of his serum LDH level. He was treated with IV Dilaudid for pain management. Hospital Course Hospital Course: Patient was admitted for recurrent large B cell lymphoma related symptoms with tumor lysis. He was seen in consultation by Dr Samaniego, medical oncologist. He had his initial R-CHOP chemotherapy on 08/17/2017. He subsequently developed severe pancytopenia that required reverse contact isolation and multiple units of PRBC and pheresis platelet transfusions. His current CBC indices are in acceptable range to allow for his discharge home today. Patient was instructed to follow up with Dr. Samaniego office for appointment tomorrow. He will follow up with me in the office as instructed upon discharge. Physical Exam Vital Signs: Temp Pulse Resp BP Pulse Ox 98.4 F 95 19 140/62 H 100 08/30/17 15:09 08/30/17 15:09 08/30/17 15:09 08/30/17 15:09 08/30/17 15:09 Intake & Output 08/29/17 08/30/17 08/31/17 06:59 06:59 06:59 Intake Total 1200 2605 1157 Output Total 2375 1650 1750 Balance -1175 955 -593 Physical Exam: General appearance: PRESENT: no acute distress, well-developed, well-nourished Head exam: PRESENT: atraumatic, normocephalic Eye exam: PRESENT: conjunctiva pink, EOMI, PERRLA. ABSENT: scleral icterus Cardiovascular exam: PRESENT: RRR, +S1, +S2, tachycardia Vascular exam: PRESENT: normal capillary refill. ABSENT: pallor GI/Abdominal exam: PRESENT: normal bowel sounds, soft. ABSENT: distended, guarding, mass, organomegaly, rebound, tenderness Extremities exam: ABSENT: pedal edema Musculoskeletal exam: PRESENT: normal inspection Neurological exam: PRESENT: alert, awake, oriented to person, oriented to place , oriented to time, oriented to situation, CN II-XII grossly intact. ABSENT: motor sensory deficit Psychiatric exam: PRESENT: appropriate affect, normal mood. ABSENT: homicidal ideation, suicidal ideation Skin exam: PRESENT: dry, intact, warm. Resolving ecchymotic lesion RLQ site of prior administered Lovenox for DVT prophylaxis. ABSENT: cyanosis, rash Results Laboratory Results: 08/30/17 15:25 08/30/17 04:41 08/29/17 08/29/17 08/30/17 15:30 19:00 04:41 WBC RBC Hgb 7.9 L Hct MCV MCH MCHC RDW Plt Count Seg Neutrophils % Lymphocytes % Monocytes % Eosinophils % Basophils % Absolute Neutrophils Absolute Lymphocytes Absolute Monocytes Absolute Eosinophils Absolute Basophils Sodium 137.8 Potassium 3.7 Chloride 102 Carbon Dioxide 28 Anion Gap 8 BUN 14 Creatinine 0.89 Est GFR ( Amer) > 60 Est GFR (Non-Af Amer) > 60 Glucose 111 H Calcium 8.9 Blood Type A POSITIVE Antibody Screen NEGATIVE 08/30/17 08/30/17 04:41 15:25 WBC 6.4 6.8 RBC 2.47 L 2.90 L Hgb 7.4 L 8.4 L Hct 20.3 L 24.0 L MCV 83 83 MCH 30.0 28.9 MCHC 36.4 H 35.0 RDW 15.0 H 14.9 H Plt Count 31 L D 22 L* Seg Neutrophils % Not Reportable Not Reportable Lymphocytes % Not Reportable Not Reportable Monocytes % Not Reportable Not Reportable Eosinophils % Not Reportable Not Reportable Basophils % Not Reportable Not Reportable Absolute Neutrophils Not Reportable Not Reportable Absolute Lymphocytes Not Reportable Not Reportable Absolute Monocytes Not Reportable Not Reportable Absolute Eosinophils Not Reportable Not Reportable Absolute Basophils Not Reportable Not Reportable Sodium Potassium Chloride Carbon Dioxide Anion Gap BUN Creatinine Est GFR ( Amer) Est GFR (Non-Af Amer) Glucose Calcium Blood Type Antibody Screen Qualifiers PATEINT BEING DISCHARGED WITH ANY OF THE FOLLOWING DIAGNOSIS?: No Plan Discharge Plan: Discharge home today. Follow up with Dr Samaniego and me in office as instructed upon discharge.
[2017-08-30 19:02] VITALS: BP 124/53
[2017-08-31 10:53] LABS: BAND NEUTROPHILS % (MANUAL) 20 % (3-5)
[2017-08-31 10:56] LABS: PATH REVIEW PATHOLOGIST REVIEWED
[2017-08-31 11:00] LABS: BAND NEUTROPHILS % (MANUAL) 18 % (3-5)
[2017-08-31 11:01] LABS: BASOPHILS % (MANUAL) 0 % (0-2); LYMPHOCYTES % (MANUAL) 13 % (13-45); NUCLEATED RED BLOOD CELLS 1 /100 WBC (0)
[2017-08-31 11:02] LABS: PATH REVIEW PATHOLOGIST REVIEWED
== END 2017-08-30 19:48 | disposition home or self-care (01) | DRG 841 ==
LOC: ER 08:50 → EH 14:16 → 4N 18:44
PROVIDERS: ADMIT Internal Medicine Geriatric Medicine; ATTEND Internal Medicine Geriatric Medicine
PROC: 30233R1 Transfusion of Nonautologous Platelets into Peripheral Vein, Percutaneous Approach (ICD-10-PCS; principal; 2017-08-15)
PROC: 3E03305 Introduction of Other Antineoplastic into Peripheral Vein, Percutaneous Approach (ICD-10-PCS; 2017-08-17)
PROC: 30233N1 Transfusion of Nonautologous Red Blood Cells into Peripheral Vein, Percutaneous Approach (ICD-10-PCS; 2017-08-19)
PROC: 30233N1 Transfusion of Nonautologous Red Blood Cells into Peripheral Vein, Percutaneous Approach (ICD-10-PCS; 2017-08-22)
PROC: 30233N1 Transfusion of Nonautologous Red Blood Cells into Peripheral Vein, Percutaneous Approach (ICD-10-PCS; 2017-08-30)
DX: C83.30 Diffuse large B-cell lymphoma, unspecified site (principal); D61.818 Other pancytopenia; D69.6 Thrombocytopenia, unspecified; E78.5 Hyperlipidemia, unspecified; I10 Essential (primary) hypertension; D64.9 Anemia, unspecified; E11.9 Type 2 diabetes mellitus without complications; M19.90 Unspecified osteoarthritis, unspecified site; S30.810A Abrasion of lower back and pelvis, initial encounter; X58.XXXA Exposure to other specified factors, initial encounter; M54.9 Dorsalgia, unspecified; Z87.891 Personal history of nicotine dependence; Z79.4 Long term (current) use of insulin; Z79.52 Long term (current) use of systemic steroids; Z79.899 Other long term (current) drug therapy
CPT/HCPCS: 36415; 36430; 80048; 80053; 81001; 82272; 82784; 82962; 83020; 83615; 83883; 84550; 85025; 85027; 85610; 85730; 86850; 86900; 86901; 86920; 96361; 96367; 96374; 96375; 96409; 96411; 96413; 96415; 99284; J0885; J1100; J1200; J1442; J1453; J1815; J1885; J2405; J3490; J7030; J7040; J7050; J7060; J7512; J9000; J9070; J9310; J9370; P9016; P9035

== ENCOUNTER → 2017-09-23 | Day surgery (SDC) | payer MEDICARE, BC ==
--- NOTE | 2017-09-23 15:05 | RADIOLOGY REPORT (SQ) ---
EXAM DESCRIPTION: U/S BIOPSY SUPERFIC LYMPH NODE COMPLETED DATE/TIME: 09/23/2017 12:04 pm REASON FOR STUDY: C85.99 NON-HODGKIN LYMPHOMA, UNSP, EXTRANODAL AND SOLID ORGAN SITES C85.99 NON-HO DGKIN LYMPHOMA, UNSP, EXTRANODAL AND SOLID ORGA COMPARISON: CT chest 08/11/2017 TECHNIQUE: The procedure was discussed with the patient and the patient agreed to proceed. The patient was scanned and the right axillary adenopathy was localized. This correlates with the ar ea of concern on prior imaging studies. This area was targeted for ultrasound-guided core biopsy. After sterile skin prep and 2.5 mL local lidocaine 1% for skin and deep tissue anesthesia, a 14 gauge coaxial core biopsy needle was used to obtain several cores of tissue from the lesion. Under ultras ound guidance, a ribbon clip was placed in the areas sampled. There were no immediate post-procedure complications. Specimens were received by Liana from cytology. Pathology is pending LIMITATIONS: None. FINDINGS: Ultrasound-guided right axillary lymph node biopsy, with post biopsy clip placement. Path ology is pending. IMPRESSION: Ultrasound-guided right axillary lymph node biopsy, with post biopsy clip placement. Pa thology is pending COMMENT: Patient medication list reviewed: Yes- Quality ID# [id number]:Eligible professional attests to doc umenting in the medical record they obtained, updated, or reviewed the patient's current medications. TECHNICAL DOCUMENTATION: JOB ID: [id number] [employer]- All Rights Reserved
== END ==
LOC: RAD 09:22
PROVIDERS: ATTEND Internal Medicine Medical Oncology
PROC: 07B53ZX Excision of Right Axillary Lymphatic, Percutaneous Approach, Diagnostic (ICD-10-PCS; principal; 2017-09-23)
DX: C85.99 Non-Hodgkin lymphoma, unspecified, extranodal and solid organ sites (principal)
CPT/HCPCS: 38505; 88184; 88185; 88233; 88262; 88305; 88341; 88342

== ENCOUNTER → 2017-10-06 | Outpatient (CLI) | payer MEDICARE, BC ==
--- NOTE | 2017-10-06 10:30 | RADIOLOGY REPORT (SQ) ---
EXAM DESCRIPTION: KUB/ABDOMEN (SINGLE VIEW) COMPLETED DATE/TIME: 10/06/2017 10:08 am REASON FOR STUDY: ABDOMINAL PAIN, UNSPECIFIED SITE R10.9 UNSPECIFIED ABDOMINAL PAIN COMPARISON: None. NUMBER OF VIEWS: One view. TECHNIQUE: Supine radiographic image of the abdomen acquired. LIMITATIONS: None. FINDINGS: BOWEL GAS PATTERN: Normal bowel gas pattern. No dilated loops. CALCIFICATIONS: No suspicious calcifications. SOFT TISSUES: No gross mass or suggestion of organomegaly. HARDWARE: None in the abdomen. BONES: Orthopedic hardware is identified in the upper lumbar spine. Transition vertebra is identifie d at the lumbosacral junction OTHER: No other significant finding. IMPRESSION: NO RADIOGRAPHIC EVIDENCE FOR ACUTE ABDOMINAL DISEASE. TECHNICAL DOCUMENTATION: JOB ID: [id number] [employer]- All Rights Reserved
== END ==
LOC: RAD 09:37
PROVIDERS: ATTEND Internal Medicine Geriatric Medicine
DX: R10.9 Unspecified abdominal pain (principal)
CPT/HCPCS: 74018

== ENCOUNTER 2017-10-13 08:04 | Day surgery (SDC) | payer MEDICARE, BC ==
[2017-10-13 09:33] LABS: HEMOGLOBIN 9.9 g/dL (13.5-17.0); MEAN CORPUSCULAR HEMOGLOBIN 28.4 pg (27.0-33.4); MEAN CORPUSCULAR HGB CONC 33.2 g/dL (32.0-36.0); MEAN CORPUSCULAR VOLUME 86 fl (80-97); PLATELET COUNT 191 10^3/uL (150-450); RED CELL DISTRIBUTION WIDTH 19.4 % (11.5-14.0); WHITE BLOOD COUNT 4.6 10^3/uL (4.0-10.5)
[2017-10-13 09:41] LABS: INTERNATIONAL RATION (INR) 0.93; PARTIAL THROMBOPLASTIN TIME 23.4 SEC (23.5-35.8); PROTHROMBIN TIME 13.1 SEC (11.4-15.4)
[2017-10-13 09:47] LABS: BLOOD UREA NITROGEN 21 mg/dL (7-20)
[2017-10-13] MEDS ORDERED: LIDOCAINE 1% INJ-PF (10 MG/ML) 30 ML SDV ONE (10:03)
[2017-10-13] MEDS ORDERED: MIDAZOLAM 2 MG/2 ML INJ ONE (11:56)
[2017-10-13] MEDS ORDERED: FENTANYL CITRATE INJ/PF 100 MCG/2 ML AMPUL ONE (11:56)
--- NOTE | 2017-10-13 13:08 | RADIOLOGY REPORT (SQ) ---
EXAM DESCRIPTION: U/S BIOPSY SUPERFIC LYMPH NODE COMPLETED DATE/TIME: 10/13/2017 11:28 am REASON FOR STUDY: DIFFUSE LARGE B'CELL LYMPHOMA C83.30 DIFFUSE LARGE B-CELL LYMPHOMA, UNSPECIFIED S ITE Z79.01 MACHINE STOPPAGE FREQUENCY CHECKER (CURRENT) USE OF ANTICOAGULANTS COMPARISON: CT chest 08/11/2017 Ultrasound-guided lymph node biopsy 09/23/2017 TECHNIQUE: Ultrasound-guided right axilla lymph node biopsy was discussed with the patient and he ag mariah to the procedure. After sterile skin prep with ChloraPrep, skin and soft tissue anesthesia with 5 mL of 1% lidocaine, under direct ultrasound visualization a 14 gauge coaxial biopsy needle was use d to obtain 4 cores of tissue from an enlarged lymph node in the axilla measuring about 3.7 x 2 cm in size. A different lymph node from the prior biopsy 09/23/2017 was selected for today's procedure. After obtaining 4 cores of tissue, which were submitted to the social and human services assistant, a ribbon clip was pl aced under ultrasound guidance into the biopsied lymph node. No immediate complications. Pathology is pending. LIMITATIONS: None. FINDINGS: Ultrasound-guided biopsy of a right axillary lymph node, pathology pending IMPRESSION: Ultrasound-guided biopsy of a right axillary lymph nodes, pathology pending TECHNICAL DOCUMENTATION: JOB ID: [id number] [employer]- All Rights Reserved
--- NOTE | 2017-10-13 13:22 | RADIOLOGY REPORT (SQ) ---
EXAM DESCRIPTION: CT BIOPSY BONE MARROW, NEEDLE COMPLETED DATE/TIME: 10/13/2017 12:41 pm REASON FOR STUDY: DIFFUSE LARGE B CELL LYMPHOMA C83.30 DIFFUSE LARGE B-CELL LYMPHOMA, UNSPECIFIED S ITE Z79.01 PRISON (CURRENT) USE OF ANTICOAGULANTS COMPARISON: CT abdomen pelvis 08/11/2017 TECHNIQUE: CT guided biopsy of the posterior right iliac crest performed with conscious sedation. CT Fluoroscopy Time: 2.[address] scanners at this facility use dose modulation, iterative reconstruction, and/or weight based d osing when appropriate to reduce radiation dose to as low as reasonably achievable (ALARA). [facility]: Dose Right [facility]: CareDose [facility]: Dose Right [facility]: Teradose 4D [facility]: [employer] RADIATION DOSE: CT Rad equipment meets quality standard of care and radiation dose reduction techniq ues were employed. CTDIvol: 4.0 - 18.5 mGy. DLP: 338 mGy-cm.mGy. FINDINGS: The procedure was discussed with the patient and the patient agreed to the procedure. Prio r to the procedure, a time out was performed to verify the patient's identity and planned procedure. IV sedation was administered and physician direction by the registered nurse using 1.5 milligrams of Versed and 75 micrograms of fentanyl. Physiologic monitoring was provided before, during, and after s edation. The total sedation time was 37 minutes. Documentation face to face time, the performing proceduralist, spent monitoring the patient: [address] scanning was performed to localize the percutaneous site for the biopsy approach. After sterile skin prep and local lidocaine for skin and deep tissue anesthesia, a coaxial biopsy nee dle was used to obtain multiple cores of tissue. Specimens were given to Liana from cytology. There were no immediate complications. Pathology is pending at the time of dictation. IMPRESSION: CT GUIDED BIOPSY OF THE RIGHT POSTERIOR ILIAC CREST BONE MARROW PERFORMED WITHOUT IMMEDI ATE COMPLICATION. PATHOLOGY PENDING. IV conscious sedation COMMENT: Quality ID [id number]: Final reports for procedures using fluoroscopy that document radiation exp osure indices, or exposure time and number of fluorographic images (if radiation exposure indices are not available) Patient medication list reviewed: Yes- Quality ID# [id number]:Eligible professional attests to documenting i n the medical record they obtained, updated, or reviewed the patient's current medications.. TECHNICAL DOCUMENTATION: JOB ID: [id number] Quality ID# [id number]: Final reports with documentation of one or more dose reduction techniques (e.g., Aut omated exposure control, adjustment of the mA and/or kV according to patient size, use of iterative r econstruction technique) 2010 [employer]- All Rights Reserved
[2017-10-13 14:48] VITALS: BP 139/81
== END 2017-10-13 14:50 | disposition home or self-care (01) ==
LOC: RAD 08:04
PROVIDERS: ATTEND Internal Medicine Geriatric Medicine
PROC: 0QB23ZX Excision of Right Pelvic Bone, Percutaneous Approach, Diagnostic (ICD-10-PCS; principal; 2017-10-13)
PROC: 07B53ZX Excision of Right Axillary Lymphatic, Percutaneous Approach, Diagnostic (ICD-10-PCS; 2017-10-13)
DX: C83.30 Diffuse large B-cell lymphoma, unspecified site (principal); Z79.01 Long term (current) use of anticoagulants
CPT/HCPCS: 36415; 88185 ×15; 88184; 84520; 82565; 85027; 85610; 85730; 88233; 88262; 88305 ×2; 38505; 38221; J2250; J3010; J3490

== ENCOUNTER 2017-12-03 00:18 | Inpatient (IN) | payer MEDICARE, BC ==
--- NOTE | 2017-12-03 00:49 | RADIOLOGY REPORT (SQ) ---
EXAM DESCRIPTION: CT HEAD WITHOUT CLINICAL HISTORY: stroke sx COMPARISON: None available TECHNIQUE: Axial CT of the head obtained from the skull apex to the skull base without contrast. FINDINGS: No acute intracranial hemorrhage identified. No mass, mass effect, shift of the midline, abnormal extra-axial fluid collection or CT evidence of acute ischemic change identified. The ventricular system and sulcal spaces are mildly enlarged compatible with mild cerebral atrophy. Scattered areas of hypodensity throughout the supratentorial white matter are nonspecific and may be related to chronic small vessel ischemic change. The visualized paranasal sinuses and the mastoids are clear. No skull fracture identified. Visualized orbits and globes are unremarkable. Atherosclerotic calcification of the intracranial internal carotid arteries. DLP:1162.97 mGy-cm IMPRESSION: 1. No acute intracranial abnormality by CT criteria. Urgent finding reported to Nurse Todd at 12/02/2017 11:48 PM CDT This exam was performed according to our departmental dose-optimization program, which includes automated exposure control, adjustment of the mA and/or kV according to patient size and/or use of iterative reconstruction technique.
[2017-12-03] MEDS ORDERED: INSULIN REG, HUMAN 100 UNIT/ML 3 ML VIAL (PYX) IV ONE (00:51)
[2017-12-03] MEDS ORDERED: ASPIRIN 81 MG TABLET, CHEWABLE PO ONE (00:55)
[2017-12-03] MEDS ORDERED: CLOPIDOGREL BISULFATE 300 MG TABLET PO ONE (00:55)
[2017-12-03] MEDS ORDERED: NORMAL SALINE 1000 ML 1,000 ML IV ONE (00:57)
--- NOTE | 2017-12-03 00:57 | ER Document Report ---
ED General - General Chief Complaint: S/S of Possible Stroke Stated Complaint: FACIAL DROOP Time Seen by Provider: 12/03/17 00:37 Notes: Patient is a 72-year-old male with past medical history of hypertension, hyperlipidemia, diabetes, lymphoma, currently on chemotherapy who presents with an approximate 5 minute episode of left-sided facial droop and aphasia. This has since resolved. Patient states that he woke up with the symptoms and the spontaneously resolved without intervention. He denies any history of similar symptoms in the past. He has not seen his primary doctor regarding today's concerns. He denies any chest pain, shortness of breath, headache, neck pain, or altered mental status. No recent head or neck trauma. He denies any use of anticoagulation. Last chemotherapy was approximately 1 week ago. TRAVEL OUTSIDE OF THE [place] IN LAST 30 DAYS: No - Related Data Allergies/Adverse Reactions: clonidine Allergy (Verified 08/15/17 08:51) Past Medical History - General Information source: Patient - Social History Smoking Status: Never Smoker Frequency of alcohol use: None Drug Abuse: None Lives with: Spouse/Significant other Family History: Reviewed & Not Pertinent - Past Medical History Cardiac Medical History: Reports: Hx Hypercholesterolemia, Hx Hypertension Denies: Hx Coronary Artery Disease, Hx Heart Attack Pulmonary Medical History: Denies: Hx Asthma, Hx Bronchitis, Hx COPD, Hx Pneumonia Neurological Medical History: Denies: Hx Cerebrovascular Accident, Hx Seizures Endocrine Medical History: Reports: Hx Diabetes Mellitus Type 2 Renal/ Medical History: Denies: Hx Peritoneal Dialysis Malignancy Medical History: Reports Hx Lymphoma - Non Hodgkin's Lymphoma. Musculoskeltal Medical History: Denies Hx Arthritis Psychiatric Medical History: Denies: Hx Depression - Immunizations Hx Diphtheria, Pertussis, Tetanus Vaccination: No - unknown Review of Systems - Review of Systems Notes: Constitutional: Negative for fever. HENT: Negative for sore throat. Eyes: Negative for visual changes. Cardiovascular: Negative for chest pain. Respiratory: Negative for shortness of breath. Gastrointestinal: Negative for abdominal pain, vomiting or diarrhea. Genitourinary: Negative for dysuria. Musculoskeletal: Negative for back pain. Skin: Negative for rash. Neurological: Negative for headaches, weakness or numbness. 10 point ROS negative except as marked above and in HPI. Physical Exam - Vital signs Vitals: Pulse Ox 98 12/03/17 00:41 Interpretation: Tachycardic Notes: PHYSICAL EXAMINATION: GENERAL: Well-appearing, well-nourished and in no acute distress. HEAD: Atraumatic, normocephalic. EYES: Pupils equal round and reactive to light, extraocular movements intact, sclera anicteric, conjunctiva are normal. ENT: nares patent, oropharynx clear without exudates. Moist mucous membranes. NECK: Normal range of motion, supple without lymphadenopathy LUNGS: Breath sounds clear to auscultation bilaterally and equal. No wheezes rales or rhonchi. HEART: Regular rate and rhythm without murmurs ABDOMEN: Soft, nontender, normoactive bowel sounds. No guarding, no rebound. No masses appreciated. EXTREMITIES: Normal range of motion, no pitting or edema. No cyanosis. NEUROLOGICAL: Face symmetric. Tongue protrudes midline. Extraocular motions intact. Pupils are 2 mm and equally reactive. Normal speech, normal gait. 5 out of 5 strength in both the distal and proximal upper and lower extremities bilaterally. Sensation is grossly intact throughout. Finger to nose testing normal. Pronator drift normal. PSYCH: Normal mood, normal affect. SKIN: Warm, Dry, normal turgor, no rashes or lesions noted. Course - Re-evaluation Re-evalutation: 12/03/17 00:54 Patient presents with resolved left sided facial droop and expressive aphasia. He is noted however to be markedly hyperglycemic and 498 on initial BGL test. NIH stroke scale at time of my assessment is 0. Stat CT the head obtained at time of presentation is normal. Patient's ABCD 2 risk score is 5 placing 7 day stroke risk at 6%. As patient is considered moderate to high risk, I have recommended hospitalization for rapid risk factor management and appropriate imaging studies. He has been given asa and plavix here in the ED. Will also give fluids and insulin for hyperglycemia. 12/03/17 02:03 Laboratories do show leukopenia. Although patient is currently receiving chemotherapy for lymphoma. The patient's troponin is in the indeterminate range at 0.16 but he does deny any chest pain. His EKG does not show any ST elevations or depressions. The patient continues to deny chest pain or shortness of breath throughout the duration of his visit I do not clinically suspect an acute ND 12/03/17 02:15 I have discussed this case with Dr. Rajan who given that the patient has a troponin level of 0.16 does not wish to keep the patient here. I discussed this with the patient who is currently not comfortable with transfer stating he does not feel he needs to go anywhere, has no symptoms, and would like to speak directly with his doctor who is Dr. Fuentes. They have tried contacting Dr. Fuentes's personal cell phone although I did inform them that he is not currently electronic scanner operator. He has not answered his phone. I am waiting for the patient and his to make a decision regarding the care of this evening. 12/03/17 03:50 The patient and his family have declined transfer at this time. I have spent 20 minutes at the bedside explained to the patient, his and son the options of transfer versus remaining here in the hospital despite his troponin being elevated. I have again contacted Dr. Rajan and discussed the patient's desires to remain at this hospital. He has requested a repeat troponin and then I will reassess at that time point. Patient continues to deny any ongoing chest pain, any neurologic deficits and his stroke screen remains normal. 12/03/17 04:10 The troponin has down trended to 0.14. I have discussed this result with the patient as well as Dr. Rajan and he has accepted the patient to his service. - Vital Signs Vital signs: Temp Pulse Resp BP Pulse Ox 19 146/83 H 100 12/03/17 02:01 12/03/17 02:00 12/03/17 02:01 - Laboratory Result Diagrams: 12/03/17 00:45 12/03/17 00:45 Laboratory results interpreted by me: 12/03/17 12/03/17 00:45 00:45 WBC 1.9 L RBC 4.03 L Hgb 11.3 L Hct 34.1 L RDW 16.1 H Seg Neuts % (Manual) 28 L Band Neutrophils % 1 L Monocytes % (Manual) 34 H Abs Neuts (Manual) 0.6 L Sodium 132.4 L Chloride 96 L Glucose 454 H* Total Protein 6.0 L - Diagnostic Test Radiology reviewed: Image reviewed, Reports reviewed Radiology results interpreted by me: 12/03/17 02:29 CT head: No acute intracranial bleed or mass Chest x-ray: No acute infiltrate or pneumothorax - EKG Interpretation by Me Additional EKG results interpreted by me: 03/24/18 02:29 Sinus tachycardia. Rate 111. No ST elevations or depressions. QTC is 457. Critical Care Note - Critical Care Note Total time excluding time spent on procedures (mins): 36 Comments: Critical care time spent obtaining history from patient or surrogate, discussions with consultants, development of treatment plan with patient or surrogate, evaluation of patient's response to treatment, examination of patient , ordering and performing treatments and interventions, ordering and review of laboratory studies, re-evaluation of patient's condition, ordering and review of radiographic studies and review of old charts Discharge - Discharge Clinical Impression: Elevated troponin TIA (transient ischemic attack) Qualifiers: Transient cerebral ischemia type: unspecified Qualified Code(s): G45.9 - Transient cerebral ischemic attack, unspecified Hyperglycemia due to type 2 diabetes mellitus Qualifiers: Diabetes mellitus retirement insulin use: with retirement use Qualified Code(s): E11.65 - Type 2 diabetes mellitus with hyperglycemia Condition: Fair Disposition: ADMITTED INPATIENT Admitting Provider: Rajan Unit Admitted: IMCU Referrals: PREETHI FUENTES MD [Primary Care Provider] - Follow up as needed
[2017-12-03 01:04] LABS: HEMATOCRIT 34.1 % (37.9-51.0); HEMOGLOBIN 11.3 g/dL (13.5-17.0); MEAN CORPUSCULAR HGB CONC 33.2 g/dL (32.0-36.0); MEAN CORPUSCULAR VOLUME 85 fl (80-97); PLATELET COUNT 232 10^3/uL (150-450); RED BLOOD COUNT 4.03 10^6/uL (4.35-5.55); RED CELL DISTRIBUTION WIDTH 16.1 % (11.5-14.0); WHITE BLOOD COUNT 1.9 10^3/uL (4.0-10.5)
--- NOTE | 2017-12-03 01:04 | RADIOLOGY REPORT (SQ) ---
EXAM DESCRIPTION: CHEST SINGLE VIEW CLINICAL HISTORY: stroke alert COMPARISON: None. FINDINGS: Single frontal view of the chest. Tortuosity of the thoracic aorta. Heart is not enlarged. Eventration of the right hemidiaphragm. No consolidation, pneumothorax, or pleural effusion. Posterior spinal fixation hardware identified. Upper abdominal soft tissues are unremarkable. IMPRESSION: 1. No acute pulmonary process identified.
[2017-12-03 01:06] LABS: INTERNATIONAL RATION (INR) 0.89; PROTHROMBIN TIME 12.7 SEC (11.4-15.4)
[2017-12-03 01:07] LABS: PARTIAL THROMBOPLASTIN TIME 25.5 SEC (23.5-35.8)
[2017-12-03 01:22] LABS: ALANINE AMINOTRANSFERASE 33 U/L (21-72); ALBUMIN 3.9 g/dL (3.5-5.0); ALKALINE PHOSPHATASE 66 U/L (38-126); ANION GAP 9 (5-19); ASPARTATE AMINO TRANSFERASE 19 U/L (17-59); BILIRUBIN,DIRECT 0.2 mg/dL (0.0-0.4); BILIRUBIN,TOTAL 0.2 mg/dL (0.2-1.3); BLOOD UREA NITROGEN 12 mg/dL (7-20); CARBON DIOXIDE 27 mmol/L (22-30); CHLORIDE 96 mmol/L (98-107); CREATINE KINASE 55 U/L (55-170); POTASSIUM 4.3 mmol/L (3.6-5.0); SODIUM 132.4 mmol/L (137-145)
[2017-12-03 01:34] LABS: ABSOLUTE LYMPHOCYTES# (MANUAL) 0.7 10^3/uL (0.5-4.7); ABSOLUTE MONOCYTES # (MANUAL) 0.6 10^3/uL (0.1-1.4); ABSOLUTE NEUTROPHILS# (MANUAL) 0.6 10^3/uL (1.7-8.2); BAND NEUTROPHILS % (MANUAL) 1 % (3-5); BASOPHILS % (MANUAL) 0 % (0-2); EOSINOPHILS % (MANUAL) 0 % (0-6); LYMPHOCYTES % (MANUAL) 37 % (13-45); MONOCYTES % (MANUAL) 34 % (3-13); SEGMENTED NEUTROPHILS % (MAN) 28 % (42-78); TOTAL CELLS COUNTED 100
[2017-12-03 01:35] LABS: GLUCOSE 454 mg/dL (75-110)
[2017-12-03 01:38] LABS: ANISOCYTOSIS 1+; OVALOCYTES SLIGHT; PLATELET CLUMPS PRESENT; PLATELET COMMENT ADEQUATE; PLATELET LARGE PRESENT; POLYCHROMASIA SLIGHT; SCHISTOCYTES SLIGHT; TEAR DROP CELLS 2+; TROPONIN I 0.16 ng/mL
[2017-12-03] MEDS ORDERED: ACETAMINOPHEN 325 MG TABLET PO PRN (04:18)
[2017-12-03] MEDS ORDERED: GLUCAGON,HUMAN RECOMB 1 MG INJ IM PRN (04:25)
[2017-12-03] MEDS ORDERED: DEXTROSE 40% GEL 15 GM TUBE PO PRN ×2 (04:25)
[2017-12-03] MEDS ORDERED: DEXTROSE 50%-WATER 25 GM/50 ML DISP.SYRIN IV PRN ×2 (04:25)
--- NOTE | 2017-12-03 09:11 | EKG REPORT ---
SEVERITY:- ABNORMAL ECG - SINUS TACHYCARDIA PROBABLE LEFT ATRIAL ABNORMALITY NONSPECIFIC T ABNORMALITIES, LATERAL LEADS : Confirmed by: Vic Oliveira 03-Dec-2017 09:10:21
[2017-12-03] MEDS: ENOXAPARIN SODIUM INJ 40 MG/0.4 ML DISP.SYRIN SUBCUT SCH (09:17)
[2017-12-03] MEDS: ASPIRIN 81 MG TABLET, ENT COATED PO SCH (09:17)
[2017-12-03] MEDS: INSULIN LISPRO 100 UNIT/ML 3 ML VIAL SUBCUT PRN ×2 (09:17→23:56)
[2017-12-03] MEDS: FAMOTIDINE 20 MG TABLET PO SCH ×2 (09:17→21:30)
[2017-12-03] MEDS: CLOPIDOGREL BISULFATE 75 MG TABLET PO SCH (09:17)
--- NOTE | 2017-12-03 12:26 | PDOC H&P ---
History of Present Illness Admission Date/PCP: 12/03/17 04:22 PREETHI FUENTES Patient complains of: Left-sided facial droop History of Present Illness: CRISTEL PRESSLEY is a 72 year old male This is a 72-year-old male with a patient of Dr. Fuentes with a history of the type 2 diabetes history of the hypertension's and hyperlipidemia and history of the lymphoma with currently taking the chemotherapy the last chemotherapy was 2 weeks back came to the emergency department with a sudden onset of the left- sided facial droop, speech issue and a pretty much resolved while patient in the ER An initial CT of the head was all negative patient's denied any chest pain denied any shortness of the breath patient's only abnormal finding was patient troponin was 0.160 and the patient is having no symptoms with a cardiac standpoint and patients refused to go to the tertiary center for further evaluations decided to admit here Patient subsequent cardiac enzyme is also coming down Saw the patient on the floor patients denied any chest pain denied any shortness of the breath denied any weakness denied any history of the stroke in the past denied any cardiac problems Patients have a history of the lymphoma several years back was treated and then come back last year and currently see her Dr. Samaniego for that Past Medical History Cardiac Medical History: Reports: Hyperlipidema, Hypertension Denies: Coronary Artery Disease, Myocardial Infarction Pulmonary Medical History: Denies: Asthma, Bronchitis, Chronic Obstructive Pulmonary Disease (COPD), Pneumonia Neurological Medical History: Denies: Seizures Endocrine Medical History: Reports: Diabetes Mellitus Type 2 Malignancy Medical History: Reports: Lymphoma - Non Hodgkin's Lymphoma. Musculoskeltal Medical History: Denies: Arthritis Psychiatric Medical History: Denies: Depression Hematology: Reports: Anemia Social History Lives with: Spouse/Significant other Smoking Status: Never Smoker Frequency of Alcohol Use: None Hx Recreational Drug Use: No Drugs: None Hx Prescription Drug Abuse: No Family History Family History: Reviewed & Not Pertinent Parental Family History Reviewed: Yes Children Family History Reviewed: Yes Sibling(s) Family History Reviewed.: Yes Medication/Allergy Home Medications: Atorvastatin Calcium [Lipitor 20 mg Tablet] 20 mg PO QHS 08/15/17 Benazepril HCl [Lotensin] 40 mg PO DAILY 08/15/17 Insulin Lispro [Humalog Kwikpen U-100] 0 units SQ ASDIR PRN 08/15/17 Allopurinol [Zyloprim 100 mg Tablet] 100 mg PO DAILY 12/03/17 Nateglinide [Starlix] 120 mg PO Q8H 12/03/17 Ondansetron [Zofran Odt] 8 mg PO Q6HP PRN 12/03/17 Pioglitazone HCl/Glimepiride [Pioglitazone-Glimepiride 30-4] 1 tab PO DAILY Allergies/Adverse Reactions: clonidine Allergy (Verified 08/15/17 08:51) Review of Systems Constitutional: ABSENT: chills, fever(s), headache(s), weight gain, weight loss Eyes: ABSENT: visual disturbances Ears: ABSENT: hearing changes Cardiovascular: ABSENT: chest pain, dyspnea on exertion, edema, orthropnea, palpitations Respiratory: ABSENT: cough, hemoptysis Gastrointestinal: ABSENT: abdominal pain, constipation, diarrhea, hematemesis, hematochezia, nausea, vomiting Genitourinary: ABSENT: dysuria, hematuria Musculoskeletal: ABSENT: joint swelling Integumentary: ABSENT: rash, wounds Neurological: ABSENT: abnormal gait, abnormal speech, confusion, dizziness, focal weakness, syncope Psychiatric: ABSENT: anxiety, depression, homidical ideation, suicidal ideation Endocrine: ABSENT: cold intolerance, heat intolerance, menstrual abnormalities, polydipsia, polyuria Hematologic/Lymphatic: ABSENT: easy bleeding, easy bruising, lymphadenopathy Physical Exam Vital Signs: Temp Pulse Resp BP Pulse Ox 98.5 F 88 18 136/68 H 100 12/03/17 07:42 12/03/17 07:42 12/03/17 07:42 12/03/17 07:42 12/03/17 07:42 Intake & Output 12/02/17 12/03/17 12/04/17 06:59 06:59 06:59 Intake Total 3 Balance 3 Weight 88.7 kg General appearance: PRESENT: no acute distress, well-developed, well-nourished Head exam: PRESENT: atraumatic, normocephalic Eye exam: PRESENT: conjunctiva pink, EOMI, PERRLA. ABSENT: scleral icterus Ear exam: PRESENT: normal external ear exam Mouth exam: PRESENT: moist, tongue midline Neck exam: PRESENT: full ROM. ABSENT: carotid bruit, JVD, lymphadenopathy, thyromegaly Respiratory exam: PRESENT: clear to auscultation jihan Cardiovascular exam: PRESENT: RRR. ABSENT: diastolic murmur, rubs, systolic murmur Pulses: PRESENT: normal dorsalis pedis pul, +2 pedal pulses bilateral Vascular exam: PRESENT: normal capillary refill GI/Abdominal exam: PRESENT: normal bowel sounds, soft. ABSENT: distended, guarding, mass, organolmegaly, rebound, tenderness Rectal exam: PRESENT: deferred Extremities exam: ABSENT: full ROM, left AKA, right AKA, left BKA, right BKA, calf tenderness, joint swelling, pedal edema, tenderness, other Musculoskeletal exam: PRESENT: ambulatory Neurological exam: PRESENT: alert, awake, oriented to person, oriented to place , oriented to time, oriented to situation, reflexes normal, CN II-XII grossly intact, normal gait. ABSENT: motor sensory deficit Psychiatric exam: PRESENT: appropriate affect, normal mood. ABSENT: homicidal ideation, suicidal ideation Skin exam: PRESENT: dry, intact, warm. ABSENT: cyanosis, rash Results Impressions: Head CT 12/03/17 00:00 IMPRESSION: 1. No acute intracranial abnormality by CT criteria. Urgent finding reported to Nurse Todd at 12/02/2017 11:48 PM CDT This exam was performed according to our departmental dose-optimization program, which includes automated exposure control, adjustment of the mA and/or kV according to patient size and/or use of iterative reconstruction technique. Chest X-Ray 12/03/17 00:39 IMPRESSION: 1. No acute pulmonary process identified. Assessment & Plan - Diagnosis (1) TIA (transient ischemic attack) Qualifiers: Transient cerebral ischemia type: unspecified Qualified Code(s): G45.9 - Transient cerebral ischemic attack, unspecified Is this a current diagnosis for this admission?: Yes Plan: Start the patient on aspirin Plavix and statin will get the MRI and also get the carotid Doppler and echocardiogram (2) Elevated troponin Is this a current diagnosis for this admission?: Yes Plan: With nonspecific elevations we consult the cardiology while patient is completely asymptomatic and no EKG changes (3) Diabetes mellitus type 2 in obese Is this a current diagnosis for this admission?: Yes Plan: As a sliding scale and current medication (4) Diffuse large B cell lymphoma Qualifiers: Lymphoma site: unspecified region Qualified Code(s): C83.30 - Diffuse large B-cell lymphoma, unspecified site Is this a current diagnosis for this admission?: Yes Plan: Follow with oncology (5) HLD (hyperlipidemia) Qualifiers: Hyperlipidemia type: unspecified Is this a current diagnosis for this admission?: Yes Plan: Continues to statin (6) HTN (hypertension) Qualifiers: Hypertension type: essential hypertension Is this a current diagnosis for this admission?: Yes Plan: . 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
[2017-12-03] MEDS ORDERED: (PENDING PHARMACY ID) (Nateglinide [Starlix] 120 MG) PO SCH (12:30)
[2017-12-03 12:56] LABS: CREATINE KINASE MB 1.18 ng/mL (<4.55)
[2017-12-03 13:05] LABS: TROPONIN I 0.14 ng/mL
--- NOTE | 2017-12-03 13:49 | RADIOLOGY REPORT (SQ) ---
EXAM DESCRIPTION: MRA HEAD WITHOUT; MRI HEAD WITHOUT COMPLETED DATE/TIME: 12/03/2017 12:41 pm REASON FOR STUDY: crystalke TECHNIQUE: Multiplanar imaging includes non-contrasted T1, T2, FLAIR, and diffusion with ADC map seq uences. Images stored on PACS. Axial 3-D [id number]-nw-[id number] acquisition imaging performed through the brain in the area of the [place]. Images reformatted using 3-D MIPS. 3D [id number]-[id number]-fgrlpp [place] MRA exam was performed, source data and maximum intensity projecte d images were reviewed. LIMITATIONS: None. FINDINGS: ANATOMY: No developmental anomalies. Normal vascular flow voids. Pituitary fossa normal. CSF SPACES: Normal in size and contour. No hemorrhage. CEREBRUM: On diffusion image , a punctate focus of increased signal is present in the right fron ave cortex which correlates with increased signal on FLAIR images. This likely represents a small no nhemorrhagic subacute cortical infarct. Remainder of the brain parenchyma is otherwise unremarkable aside from minimal age-appropriate chroni c small vessel disease in the deep periventricular white matter. No large territory acute ischemic c hange, acute intracranial hemorrhage, mass effect, or midline shift. POSTERIOR FOSSA: Minimal pontine chronic small vessel ischemic change with increased signal on axial image 11. No acute infarct. No hemorrhage. No edema, masses or mass effect. Internal auditory luan ls, cerebello-pontine angles, mastoids normal. DIFFUSION IMAGING: Negative for acute or sub-acute infarction. ORBITS: No masses. Globes normal. PARANASAL SINUSES: No fluid levels. Mucosa normal. [place] MRA: Source data demonstrates greater than 50% diameter narrowing of the mid third b asilar artery, best shown on source data images 41 through 69, and re-projected images through . Remainder of the [place] MRA exam is otherwise unremarkable. No other stenosis. No vascular malformation or aneurysm. IMPRESSION: Subacute tiny cortical infarct right frontal region, nonhemorrhagic. 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 CT brain 12/03/2017 Reading location - IP/workstation name: [email or web address]
--- NOTE | 2017-12-03 13:49 | RADIOLOGY REPORT (SQ) ---
EXAM DESCRIPTION: MRA HEAD WITHOUT; MRI HEAD WITHOUT COMPLETED DATE/TIME: 12/03/2017 12:41 pm REASON FOR STUDY: crystalke TECHNIQUE: Multiplanar imaging includes non-contrasted T1, T2, FLAIR, and diffusion with ADC map seq uences. Images stored on PACS. Axial 3-D [id number]-[id number] acquisition imaging performed through the brain in the area of the [place]. Images reformatted using 3-D MIPS. 3D [id number]-xa-wfknkd [place] MRA exam was performed, source data and maximum intensity projecte d images were reviewed. LIMITATIONS: None. FINDINGS: ANATOMY: No developmental anomalies. Normal vascular flow voids. Pituitary fossa normal. CSF SPACES: Normal in size and contour. No hemorrhage. CEREBRUM: On diffusion image , a punctate focus of increased signal is present in the right fron vae cortex which correlates with increased signal on FLAIR images. This likely represents a small no nhemorrhagic subacute cortical infarct. Remainder of the brain parenchyma is otherwise unremarkable aside from minimal age-appropriate chroni c small vessel disease in the deep periventricular white matter. No large territory acute ischemic c hange, acute intracranial hemorrhage, mass effect, or midline shift. POSTERIOR FOSSA: Minimal pontine chronic small vessel ischemic change with increased signal on axial image 11. No acute infarct. No hemorrhage. No edema, masses or mass effect. Internal auditory luan ls, cerebello-pontine angles, mastoids normal. DIFFUSION IMAGING: Negative for acute or sub-acute infarction. ORBITS: No masses. Globes normal. PARANASAL SINUSES: No fluid levels. Mucosa normal. [place] MRA: Source data demonstrates greater than 50% diameter narrowing of the mid third b asilar artery, best shown on source data images 41 through 69, and re-projected images through . Remainder of the [place] MRA exam is otherwise unremarkable. No other stenosis. No vascular malformation or aneurysm. IMPRESSION: Subacute tiny cortical infarct right frontal region, nonhemorrhagic. 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 CT brain 12/03/2017 Reading location - IP/workstation name: [email or web address]
--- NOTE | 2017-12-03 13:55 | PDOC CONSULTATION ---
Consultation Consult Date: 12/03/17 Attending physician:: TAMANNA RAJAN Consult reason:: TIA versus stroke History of Present Illness Admission Date/PCP: 12/03/17 04:22 PREETHI FUENTES Patient complains of: Transient weakness and speech difficulty History of Present Illness: CRISTEL PRESSELY is a 72 year old male This is a 72-year-old male with a patient of Dr. Fuentes with a history of the type 2 diabetes history of the hypertension's and hyperlipidemia and history of the lymphoma with currently taking the chemotherapy the last chemotherapy was 2 weeks back came to the emergency department with a sudden onset of the left- sided facial droop, speech issue and a pretty much resolved while patient in the ER An initial CT of the head was all negative patient's denied any chest pain denied any shortness of the breath patient's only abnormal finding was patient troponin was 0.160 and the patient is having no symptoms with a cardiac standpoint and patients refused to go to the tertiary center for further evaluations decided to admit here Patient subsequent cardiac enzyme is also coming down Saw the patient on the floor patients denied any chest pain denied any shortness of the breath denied any weakness denied any history of the stroke in the past denied any cardiac problems Patients have a history of the lymphoma several years back was treated and then come back last year and currently see her Dr. Samaniego for that. This history obtained by Dr. Rajan was reviewed and confirmed. On repeated questioning patient is denying any chest pain. He is also denying any shortness of breath. His symptoms seems neurological in etiology. However patient has positive troponin I. Past Medical History Cardiac Medical History: Reports: Hyperlipidema, Hypertension Denies: Coronary Artery Disease, Myocardial Infarction Pulmonary Medical History: Denies: Asthma, Bronchitis, Chronic Obstructive Pulmonary Disease (COPD), Pneumonia Neurological Medical History: Denies: Seizures Endocrine Medical History: Reports: Diabetes Mellitus Type 2 Malignancy Medical History: Reports: Lymphoma - Non Hodgkin's Lymphoma. Musculoskeltal Medical History: Denies: Arthritis Psychiatric Medical History: Denies: Depression Hematology: Reports: Anemia Social History Information Source: Patient Lives with: Spouse/Significant other Smoking Status: Never Smoker Frequency of Alcohol Use: None Hx Recreational Drug Use: No Drugs: None Hx Prescription Drug Abuse: No - Advance Directive Resuscitation Status: Full Code Surrogate healthcare decision maker:: Patient's is the surrogate decision-maker Family History Family History: Hypertension Parental Family History Reviewed: Yes Children Family History Reviewed: Yes Sibling(s) Family History Reviewed.: Yes Medication/Allergy Home Medications: Atorvastatin Calcium [Lipitor 20 mg Tablet] 20 mg PO QHS 08/15/17 Benazepril HCl [Lotensin] 40 mg PO DAILY 08/15/17 Insulin Lispro [Humalog Kwikpen U-100] 0 units SQ ASDIR PRN 08/15/17 Allopurinol [Zyloprim 100 mg Tablet] 100 mg PO DAILY 12/03/17 Nateglinide [Starlix] 120 mg PO Q8H 12/03/17 Ondansetron [Zofran Odt] 8 mg PO Q6HP PRN 12/03/17 Pioglitazone HCl/Glimepiride [Pioglitazone-Glimepiride 30-4] 1 tab PO DAILY Allergies/Adverse Reactions: clonidine Allergy (Verified 08/15/17 08:51) Review of Systems Review of Systems: Please see history of present illness and past medical history as wall. Constitutional: No fever or chills reported. Head : No recent chronic headaches, recent head injury. Eyes: No recent eye pain, diplopia, redness, discharge, acute visual changes. Ears: No recent chronic ear pain, acute hearing loss, ear discharge. Oral cavity: No recent ulcerations, bleeding, oral cavity discomfort. Neck: No recent acute neck pain reported. Hematologic: No recent easy bruising or bleeding or hematologic malignancy reported. Lymphatic: Patient has history of lymphoma being treated by oncologist. Cardiovascular system review: See history of present illness. Respiratory system review: No recent chronic cough, hemoptysis, blood clots in the lungs reported. Mild Shortness of breath on exertion Gastrointestinal system review: Negative for any recent acute or chronic abdominal pain, hematemesis, melena, recent change in bowel habits. Genitourinary system review: No recent acute or chronic hematuria, flank pain, UTI etc. reported. Skin system review: Negative for any recent abnormal bruising, no rash, no pruritus reported. Neurologic: No prior history of strokes, mini strokes, seizure disorder. Patient presented with neurological symptoms. Psychologic: No history of major psychosis or major depression reported. Musculoskeletal: Minor aches and pains reported. No acute joint swelling reported. Endocrine: No recent polyuria, polydipsia, recent heat or cold intolerance. Physical Exam Vital Signs: Temp Pulse Resp BP Pulse Ox 98.5 F 88 18 136/68 H 100 12/03/17 07:42 12/03/17 07:42 12/03/17 07:42 12/03/17 07:42 12/03/17 07:42 Intake & Output 12/02/17 12/03/17 12/04/17 06:59 06:59 06:59 Intake Total 3 695 Balance 3 695 Weight 88.7 kg Exam: GENERAL: well-nourished and in no acute distress. Alert and oriented x3 HEAD: Atraumatic, normocephalic. EYES: Pupils equal round and reactive to light, extraocular movements intact, sclera anicteric, conjunctiva are normal. ENT: TMs normal, nares patent, oropharynx clear without exudates. Moist mucous membranes. No oral ulcerations or bleeding gums noted NECK: supple without lymphadenopathy. Trachea is central. No cervical or axillary lymphadenopathy noted. Carotids are 2+, JVD WNL LUNGS: Respiration seems nonlabored, no significant accessory muscle action noted. Breath sounds clear to auscultation bilaterally and equal noted. No wheezes rales or rhonchi noted. No significant dullness noted on percussion. CHEST: Palpation of the chest wall shows no significant chest wall tenderness. No other significant abnormalities noted. 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 ABDOMEN: Soft, no significant tenderness appreciated, normoactive bowel sounds. No guarding, no rebound. No rigidity noted . No masses appreciated. EXTREMITIES: Pedal pulses are 1-2+, no calf tenderness noted. No clubbing or cyanosis.trace to 1+ pedal edema noted NEUROLOGICAL: Focused neurological exam showed no significant neurologic deficit. Normal speech, no focal weakness appreciated. PSYCH: Normal mood, normal affect. Judgment and insight within normal limits. SKIN: No significant ecchymosis, skin is noted to be warm. MUSCULOSKELETAL EXAM: No significant acute joint swelling noted. Results Laboratory Results: 12/03/17 12/03/17 12:00 12:00 Creatine Kinase 50 L CK-MB (CK-2) 1.18 Troponin I 0.140 EKG Comments: Sinus tachycardia with minor nonspecific ST-T changes. Impressions: Head CT 12/03/17 00:00 IMPRESSION: 1. No acute intracranial abnormality by CT criteria. Urgent finding reported to Nurse Todd at 12/02/2017 11:48 PM CDT This exam was performed according to our departmental dose-optimization program, which includes automated exposure control, adjustment of the mA and/or kV according to patient size and/or use of iterative reconstruction technique. Chest X-Ray 12/03/17 00:39 IMPRESSION: 1. No acute pulmonary process identified. Assessment & Plan - Diagnosis (1) Elevated troponin Is this a current diagnosis for this admission?: Yes (2) TIA (transient ischemic attack) Qualifiers: Transient cerebral ischemia type: unspecified Qualified Code(s): G45.9 - Transient cerebral ischemic attack, unspecified Is this a current diagnosis for this admission?: Yes (3) HLD (hyperlipidemia) Qualifiers: Hyperlipidemia type: unspecified Qualified Code(s): E78.5 - Hyperlipidemia , unspecified Is this a current diagnosis for this admission?: Yes (4) HTN (hypertension) Qualifiers: Hypertension type: essential hypertension Qualified Code(s): I10 - Essential (primary) hypertension Is this a current diagnosis for this admission?: Yes (5) Hyperglycemia due to type 2 diabetes mellitus Qualifiers: Diabetes mellitus terminal worker insulin use: unspecified terminal worker insulin use status Qualified Code(s): E11.65 - Type 2 diabetes mellitus with hyperglycemia Is this a current diagnosis for this admission?: Yes (6) Diffuse large B cell lymphoma Qualifiers: Lymphoma site: unspecified region Qualified Code(s): C83.30 - Diffuse large B-cell lymphoma, unspecified site Is this a current diagnosis for this admission?: Yes - Notes Notes: Abnormal troponin I elevation: Patient denies any chest pain. He does not have any significant EKG changes. Troponin I elevation possibly could be related to lymphoma and second kind of abnormal protein may cross react with reagent and cause a false positive elevation of troponin I. However I totally agree with Dr. Rajan that we need to trend the enzyme, repeat EKG and consider a nuclear stress test. Transient ischemic attack: Exact etiology not clear but agree with current evaluation which should include a 2D echocardiogram, cardiac monitoring and carotid evaluations. Recommend antiplatelet therapy and statin therapy in the time being. Dyslipidemia: Recommend statin therapy. LDL goal is less than 70. Hypertension: Blood pressure goal 140/90 or less. Hyperglycemia secondary to diabetes: This is being well managed by feed preparation operator. Diffuse beta cell lymphoma: Patient being managed by oncologist. - Time Time Spent: 30 to 50 Minutes - CODE STATUS was discussed, patient remains full code. Surrogate decision-maker patient's . Multiple medical problems were addressed. More than 50% of the time spent coordinating care, discussing management plans with involved caregivers. Management plans discussed with involved personnels. Medical decision making was of moderate to high complexity , patient's has multiple comorbidities. Medications reviewed and adjusted accordingly: Yes
[2017-12-03 19:30] LABS: CREATINE KINASE MB 1.32 ng/mL (<4.55)
[2017-12-03 19:35] LABS: TROPONIN I 0.154 ng/mL
[2017-12-03] MEDS: NATEGLINIDE 60 MG TABLET PO SCH (21:29)
[2017-12-03] MEDS: ATORVASTATIN CALCIUM 40 MG TABLET PO SCH (21:30)
[2017-12-04] MEDS: NATEGLINIDE 60 MG TABLET PO SCH ×3 (06:45→22:00)
--- NOTE | 2017-12-04 07:07 | PDOC PROGRESS REPORT ---
Subjective Progress Note for:: 12/04/17 Subjective:: Patient is currently doing much better Denied any weakness denied any vision problem Patient's denied any chest pain denied any shortness of the breath MRI of the brain suggest acute stroke with some mild basilar artery stenosis Reason For Visit: TIA Physical Exam Vital Signs: Temp Pulse Resp BP Pulse Ox 98.6 F 85 16 120/68 100 12/04/17 03:26 12/04/17 04:00 12/04/17 04:00 12/04/17 04:00 12/04/17 04:00 Intake & Output 12/03/17 12/04/17 12/05/17 06:59 06:59 06:59 Intake Total 3 1774 Balance 3 1774 Weight 88.7 kg 87.9 kg General appearance: PRESENT: no acute distress, well-developed, well-nourished Head exam: PRESENT: atraumatic, normocephalic Eye exam: PRESENT: conjunctiva pink, EOMI, PERRLA. ABSENT: scleral icterus Ear exam: PRESENT: normal external ear exam Mouth exam: PRESENT: moist, tongue midline Neck exam: PRESENT: full ROM. ABSENT: carotid bruit, JVD, lymphadenopathy, thyromegaly Respiratory exam: PRESENT: clear to auscultation jihan Cardiovascular exam: PRESENT: RRR. ABSENT: diastolic murmur, rubs, systolic murmur Pulses: PRESENT: normal dorsalis pedis pul, +2 pedal pulses bilateral Vascular exam: PRESENT: normal capillary refill GI/Abdominal exam: PRESENT: normal bowel sounds, soft. ABSENT: distended, guarding, mass, organolmegaly, rebound, tenderness Rectal exam: PRESENT: deferred Musculoskeletal exam: PRESENT: ambulatory Neurological exam: PRESENT: alert, awake, oriented to person, oriented to place , oriented to time, oriented to situation, CN II-XII grossly intact. ABSENT: motor sensory deficit Psychiatric exam: PRESENT: appropriate affect, normal mood. ABSENT: homicidal ideation, suicidal ideation Skin exam: PRESENT: dry, intact, warm. ABSENT: cyanosis, rash Results Laboratory Results: 12/03/17 12/03/17 12/03/17 12:00 12:00 18:45 Creatine Kinase 50 L 49 L CK-MB (CK-2) 1.18 Troponin I 0.140 12/03/17 18:45 Creatine Kinase CK-MB (CK-2) 1.32 Troponin I 0.154 Impressions: Head CT 12/03/17 00:00 IMPRESSION: 1. No acute intracranial abnormality by CT criteria. Urgent finding reported to Nurse Todd at 12/02/2017 11:48 PM CDT This exam was performed according to our departmental dose-optimization program, which includes automated exposure control, adjustment of the mA and/or kV according to patient size and/or use of iterative reconstruction technique. Head MRI 12/03/17 00:00 IMPRESSION: Subacute tiny cortical infarct right frontal region, nonhemorrhagic. 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 No acute pulmonary process identified. Brain MRI with MRA 12/03/17 04:21 IMPRESSION: Subacute tiny cortical infarct right frontal region, nonhemorrhagic. 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 EVIDENCE OF ACUTE STROKE: Subacute tiny cortical infarct right frontal region Assessment & Plan - Diagnosis (1) TIA (transient ischemic attack) Qualifiers: Transient cerebral ischemia type: unspecified Qualified Code(s): G45.9 - Transient cerebral ischemic attack, unspecified Is this a current diagnosis for this admission?: Yes Plan: Currently doing well continues aspirin Plavix and statin and follow-up outpatients neurology for the basilarly artery issues (2) Elevated troponin Is this a current diagnosis for this admission?: Yes Plan: With nonspecific elevations we consult the cardiology while patient is completely asymptomatic and no EKG changes (3) Diabetes mellitus type 2 in obese Is this a current diagnosis for this admission?: Yes Plan: As a sliding scale and current medication (4) Diffuse large B cell lymphoma Qualifiers: Lymphoma site: unspecified region Qualified Code(s): C83.30 - Diffuse large B-cell lymphoma, unspecified site Is this a current diagnosis for this admission?: Yes Plan: Follow with oncology (5) HLD (hyperlipidemia) Qualifiers: Hyperlipidemia type: unspecified Qualified Code(s): E78.5 - Hyperlipidemia , unspecified Is this a current diagnosis for this admission?: Yes Plan: Continues to statin (6) HTN (hypertension) Qualifiers: Hypertension type: essential hypertension Qualified Code(s): I10 - Essential (primary) hypertension Is this a current diagnosis for this admission?: Yes Plan: . 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
[2017-12-04] MEDS: PIOGLITAZONE HCL 30 MG TABLET PO SCH (08:25)
[2017-12-04] MEDS: INSULIN LISPRO 100 UNIT/ML 3 ML VIAL SUBCUT PRN ×4 (08:25→22:39)
[2017-12-04] MEDS: GLIMEPIRIDE 4 MG TABLET PO SCH (08:25)
[2017-12-04] MEDS: ASPIRIN 81 MG TABLET, ENT COATED PO SCH (09:15)
[2017-12-04] MEDS: CLOPIDOGREL BISULFATE 75 MG TABLET PO SCH (09:15)
[2017-12-04] MEDS: ALLOPURINOL 100 MG TABLET PO SCH (09:15)
[2017-12-04] MEDS: FAMOTIDINE 20 MG TABLET PO SCH ×2 (09:15→22:00)
[2017-12-04] MEDS: BENAZEPRIL HCL 20 MG TABLET PO SCH (09:15)
[2017-12-04] MEDS: ENOXAPARIN SODIUM INJ 40 MG/0.4 ML DISP.SYRIN SUBCUT SCH (09:15)
[2017-12-04] MEDS ORDERED: PIOGLITAZONE PO SCH (10:00)
[2017-12-04] MEDS ORDERED: (PENDING PHARMACY ID) (Benazepril Hcl [Lotensin] 40 MG) PO SCH (10:00)
[2017-12-04] MEDS ORDERED: GLIMEPIRIDE PO SCH (10:00)
[2017-12-04] MEDS ORDERED: [UNRECOGNIZED DRUG - OTHER] PO SCH (10:00)
--- NOTE | 2017-12-04 12:04 | PDOC PROGRESS REPORT ---
Subjective Progress Note for:: 12/04/17 Subjective:: Patient seems to be doing better with gradual improvement. Pt is denying any chest arm or neck discomfort. Patient denying any PND, orthopnea. Patient denied any sustained palpitations, dizziness, syncope, near syncope. Patient denying any fever chills. Patient denying any other significant discomfort. Patient is maintaining sinus rhythm. Review of systems: Rest review of systems negative. Medications: Medications have been reviewed. Reason For Visit: TIA Physical Exam Vital Signs: Temp Pulse Resp BP Pulse Ox 98.6 F 85 16 120/68 100 12/04/17 03:26 12/04/17 07:52 12/04/17 07:52 12/04/17 07:52 12/04/17 07:52 Intake & Output 12/03/17 12/04/17 12/05/17 06:59 06:59 06:59 Intake Total 3 1774 Balance 3 1774 Weight 88.7 kg 87.9 kg Exam: GENERAL: well-nourished and in no acute distress. Alert and oriented x3 HEAD: Atraumatic, normocephalic. EYES: Pupils equal round and reactive to light, extraocular movements intact, sclera anicteric, conjunctiva are normal. ENT: TMs normal, nares patent, oropharynx clear without exudates. Moist mucous membranes. No oral ulcerations or bleeding gums noted NECK: supple without lymphadenopathy. Trachea is central. No cervical or axillary lymphadenopathy noted. Carotids are 2+, JVD WNL LUNGS: Respiration seems nonlabored, no significant accessory muscle action noted. Breath sounds clear to auscultation bilaterally and equal noted. No wheezes rales or rhonchi noted. No significant dullness noted on percussion. CHEST: Palpation of the chest wall shows no significant chest wall tenderness. No other significant abnormalities noted. 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 ABDOMEN: Soft, no significant tenderness appreciated, normoactive bowel sounds. No guarding, no rebound. No rigidity noted . No masses appreciated. EXTREMITIES: Pedal pulses are 1-2+, no calf tenderness noted. No clubbing or cyanosis.trace to 1+ pedal edema noted NEUROLOGICAL: Focused neurological exam showed no significant neurologic deficit. Normal speech, no focal weakness appreciated. PSYCH: Normal mood, normal affect. Judgment and insight within normal limits. SKIN: No significant ecchymosis, skin is noted to be warm. MUSCULOSKELETAL EXAM: No significant acute joint swelling noted. Results Laboratory Results: 12/03/17 12/03/17 12/03/17 12:00 12:00 18:45 Creatine Kinase 50 L 49 L CK-MB (CK-2) 1.18 Troponin I 0.140 12/03/17 18:45 Creatine Kinase CK-MB (CK-2) 1.32 Troponin I 0.154 EKG Comments: Twelve-lead EKG shows sinus rhythm no acute ST-T wave changes noted Impressions: Head CT 12/03/17 00:00 IMPRESSION: 1. No acute intracranial abnormality by CT criteria. Urgent finding reported to Nurse Todd at 12/02/2017 11:48 PM CDT This exam was performed according to our departmental dose-optimization program, which includes automated exposure control, adjustment of the mA and/or kV according to patient size and/or use of iterative reconstruction technique. Head MRI 12/03/17 00:00 IMPRESSION: Subacute tiny cortical infarct right frontal region, nonhemorrhagic. 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 No acute pulmonary process identified. Brain MRI with MRA 12/03/17 04:21 IMPRESSION: Subacute tiny cortical infarct right frontal region, nonhemorrhagic. 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 EVIDENCE OF ACUTE STROKE: Subacute tiny cortical infarct right frontal region Assessment & Plan - Diagnosis (1) Elevated troponin Is this a current diagnosis for this admission?: Yes (2) TIA (transient ischemic attack) Qualifiers: Transient cerebral ischemia type: unspecified Qualified Code(s): G45.9 - Transient cerebral ischemic attack, unspecified Is this a current diagnosis for this admission?: Yes (3) HLD (hyperlipidemia) Qualifiers: Hyperlipidemia type: unspecified Qualified Code(s): E78.5 - Hyperlipidemia , unspecified Is this a current diagnosis for this admission?: Yes (4) HTN (hypertension) Qualifiers: Hypertension type: essential hypertension Qualified Code(s): I10 - Essential (primary) hypertension Is this a current diagnosis for this admission?: Yes (5) Hyperglycemia due to type 2 diabetes mellitus Qualifiers: 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 [facility] insulin use status Qualified Code(s): E11.65 - Type 2 diabetes mellitus with hyperglycemia Is this a current diagnosis for this admission?: Yes (6) Diffuse large B cell lymphoma Qualifiers: Lymphoma site: unspecified region Qualified Code(s): C83.30 - Diffuse large B-cell lymphoma, unspecified site Is this a current diagnosis for this admission?: Yes (7) Cerebrovascular accident Qualifiers: CVA mechanism: unspecified Qualified Code(s): I63.9 - Cerebral infarction, unspecified Is this a current diagnosis for this admission?: Yes - Notes Notes: Abnormal troponin I elevation: Patient denies any chest pain. He does not have any significant EKG changes. Troponin I elevation possibly could be related to lymphoma and second kind of abnormal protein may cross react with reagent and cause a false positive elevation of troponin I. Patient's MRIs shows subacute infarct/acute infarct. Occasionally cerebrovascular accident can give rise to troponin I release because of associated coronary vasospasm which can occur. In view of patient having sustaining a acute infarct, will postpone any cardiovascular workup especially with stress testing for several weeks. Cerebrovascular accident: Exact etiology not clear but agree with current evaluation which should include a 2D echocardiogram, cardiac monitoring and carotid evaluations. Recommend antiplatelet therapy and statin therapy in the time being. Plavix being preferred. Dyslipidemia: Recommend statin therapy. LDL goal is less than 70. Hypertension: Blood pressure goal 140/90 or less. 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 Diffuse beta cell lymphoma: Patient being managed by oncologist. In view of cerebrovascular accident, recommendations are for patient to pursue a sleep study. This will be scheduled as an outpatient. - Time Time with patient: 15-25 minutes - CODE STATUS was discussed, patient remains full code. Surrogate decision-maker unchanged. Multiple medical problems were addressed. More than 50% of the time spent coordinating care, discussing management plans with involved caregivers. Management plans discussed with involved personnels. Medical decision making was of moderate to high complexity , patient's has multiple comorbidities. Medications reviewed and adjusted accordingly: Yes
--- NOTE | 2017-12-04 16:18 | EKG REPORT ---
SEVERITY:- BORDERLINE ECG - SINUS RHYTHM BORDERLINE PROLONGED QT INTERVAL VPC : Confirmed by: Vic Oliveira 04-Dec-2017 16:18:00
[2017-12-04] MEDS: ATORVASTATIN CALCIUM 40 MG TABLET PO SCH (22:00)
[2017-12-05] MEDS: NATEGLINIDE 60 MG TABLET PO SCH ×2 (06:43→13:25)
[2017-12-05 07:14] LABS: HEMATOCRIT 30.9 % (37.9-51.0); HEMOGLOBIN 10.4 g/dL (13.5-17.0); MEAN CORPUSCULAR HEMOGLOBIN 27.9 pg (27.0-33.4); MEAN CORPUSCULAR HGB CONC 33.7 g/dL (32.0-36.0); MEAN CORPUSCULAR VOLUME 83 fl (80-97); PLATELET COUNT 234 10^3/uL (150-450); RED BLOOD COUNT 3.73 10^6/uL (4.35-5.55); RED CELL DISTRIBUTION WIDTH 16.3 % (11.5-14.0); WHITE BLOOD COUNT 1.9 10^3/uL (4.0-10.5)
[2017-12-05 07:29] LABS: ANION GAP 6 (5-19); BLOOD UREA NITROGEN 11 mg/dL (7-20); CALCIUM 9.5 mg/dL (8.4-10.2); CARBON DIOXIDE 25 mmol/L (22-30); CHLORIDE 100 mmol/L (98-107); GLUCOSE 214 mg/dL (75-110); POTASSIUM 4.4 mmol/L (3.6-5.0); SODIUM 131.1 mmol/L (137-145)
[2017-12-05 08:01] LABS: ABSOLUTE LYMPHOCYTES# (MANUAL) 0.6 10^3/uL (0.5-4.7); ABSOLUTE MONOCYTES # (MANUAL) 0.7 10^3/uL (0.1-1.4); ABSOLUTE NEUTROPHILS# (MANUAL) 0.6 10^3/uL (1.7-8.2); BASOPHILS % (MANUAL) 0 % (0-2); EOSINOPHILS % (MANUAL) 0 % (0-6); LYMPHOCYTES % (MANUAL) 30 % (13-45); MONOCYTES % (MANUAL) 38 % (3-13); SEGMENTED NEUTROPHILS % (MAN) 32 % (42-78); TOTAL CELLS COUNTED 50
[2017-12-05 08:02] LABS: ANISOCYTOSIS 1+; PLATELET COMMENT ADEQUATE
[2017-12-05] MEDS: PIOGLITAZONE HCL 30 MG TABLET PO SCH (09:29)
[2017-12-05] MEDS: FAMOTIDINE 20 MG TABLET PO SCH (09:29)
[2017-12-05] MEDS: CLOPIDOGREL BISULFATE 75 MG TABLET PO SCH (09:29)
[2017-12-05] MEDS: ASPIRIN 81 MG TABLET, ENT COATED PO SCH (09:30)
[2017-12-05] MEDS: BENAZEPRIL HCL 20 MG TABLET PO SCH (09:30)
[2017-12-05] MEDS: GLIMEPIRIDE 4 MG TABLET PO SCH (09:30)
[2017-12-05] MEDS: ALLOPURINOL 100 MG TABLET PO SCH (09:30)
[2017-12-05] MEDS: ENOXAPARIN SODIUM INJ 40 MG/0.4 ML DISP.SYRIN SUBCUT SCH (09:31)
--- NOTE | 2017-12-05 12:33 | RADIOLOGY REPORT (SQ) ---
EXAM DESCRIPTION: CAROTID DOPPLER COMPLETED DATE/TIME: 12/05/2017 12:10 pm REASON FOR STUDY: tia COMPARISON: None. TECHNIQUE: Grayscale ultrasound, Doppler velocity and spectra, and color Doppler images acquired of the extra-cranial carotid and vertebral arteries. Images stored on PACS. LIMITATIONS: None. FINDINGS: RIGHT CAROTID CCA Velocities: Within normal limits. ICA Velocities Peak systolic 1.05 m/s. End diastolic 0.23 m/s. Proximal ICA/CCA peak systolic ratio 1.0. Spectra normal. No significant plaque. LEFT CAROTID CCA Velocities: Within normal limits. ICA Velocities Peak systolic 0.61 m/s. End diastolic 0.19 m/s. Proximal ICA/CCA peak systolic ratio 0.5. Spectra normal. No significant plaque. VERTEBRAL ARTERIES: Antegrade flow. Normal waveforms. SUBCLAVIAN ARTERIES: Not imaged. OTHER: No other significant finding. IMPRESSION: NO HEMODYNAMICALLY SIGNIFICANT STENOSIS. COMMENT: Quality ID #[id number]: Velocity criteria are extrapolated from the diameter data as defined by t he Society of Radiologists in Ultrasound Consensus Conference. Radiology 2003: 229; 340-346. TECHNICAL DOCUMENTATION: JOB ID: [id number] [employer]- All Rights Reserved Reading location - IP/workstation name: [facility]
[2017-12-05] MEDS: INSULIN LISPRO 100 UNIT/ML 3 ML VIAL SUBCUT PRN ×2 (13:26→17:31)
[2017-12-05 16:25] VITALS: BP 105/58
--- NOTE | 2017-12-05 18:19 | XCELERA REPORT ---
[address] [address] Transthoracic Echocardiogram Report Name: CRISTEL PRESSLEY Age: 72 yrs Gender: Male : 1945 Patient Status: Inpatient Patient Location: [address] [place] [address] Study Date: 12/05/2017 08:12 AM Height: 68 in Weight: 195 lb BSA: 2.0 m2 Procedure: A complete two-dimensional transthoracic echocardiogram was performed (2D, M-mode, spectral and color flow Doppler). The study was technically adequate with some images being suboptimal in quality. Reason For Study: elevated troponin Ordering Physician: TAMANNA ANDREWS Performed By: Eugenia Bautista Interpretation Summary Left ventricular systolic function is borderline reduced. Doppler measurements suggest reversible restrictive left ventricular relaxation, which is associated with grade III/IV or moderate diastolic dysfunction There is borderline concentric left ventricular hypertrophy. The left ventricle is grossly normal size. Wall motion cannot be accurately commented on, but no definite regional wall motion abnormalities noted. Borderline right ventricular enlargement. The right ventricular systolic function is normal. The right atrium is normal in size The left atrial size is normal. There is no mitral valve stenosis. There is a trace amount of mitral regurgitation There is no aortic valve stenosis No aortic regurgitation is present. No tricuspid regurgitation. There is no tricuspid stenosis. The aortic root is not well visualized. MMode/2D Measurements & Calculations RVDd: 3.2 cm LVIDd: 4.9 cm FS: 14.8 % Ao root diam: 2.9 cm IVSd: 0.80 cm LVIDs: 4.2 cm EDV(Teich): 114.2 ml LVPWd: 0.78 cm ESV(Teich): 78.3 ml Ao root area: 6.7 cm2 EF(Teich): 31.4 % Doppler Measurements & Calculations MV E max pawan: MV dec slope: Ao V2 max: LV V1 max P.3 cm/sec 141.4 cm/sec 3.0 mmHg 1012 cm/sec2 Ao max PG: LV V1 max: MV dec time: 8.0 mmHg 86.8 cm/sec 0.10 sec PA V2 max: 96.8 cm/sec PA max P.8 mmHg Left Ventricle The left ventricle is grossly normal size. There is borderline concentric left ventricular hypertrophy. Left ventricular systolic function is borderline reduced. Doppler measurements suggest reversible restrictive left ventricular relaxation, which is associated with grade III/IV or moderate diastolic dysfunction. Wall motion cannot be accurately commented on, but no definite regional wall motion abnormalities noted. Right Ventricle Borderline right ventricular enlargement. There is normal right ventricular wall thickness. The right ventricular systolic function is normal. Atria The right atrium is normal in size. The left atrial size is normal. Interarterial septum not well visualized and not well dopplered. Cannot comment on ASD/PFO presence. Mitral Valve The mitral valve leaflets are sclerotic, but show no functional abnormalities. There is no mitral valve stenosis. There is a trace amount of mitral regurgitation. Aortic Valve The aortic valve is grossly normal. There is no aortic valve stenosis. No aortic regurgitation is present. Tricuspid Valve The tricuspid valve is not well visualized secondary to technical limitations. There is no tricuspid stenosis. No tricuspid regurgitation. Pulmonic Valve The pulmonic valve is not well visualized. Great Vessels The aortic root is not well visualized. The inferior vena cava was not well visualized. Effusions There is no pericardial effusion. Incidental Findings No definite cardiac source of CVA/TIA noted on this particular trans- thoracic study. Consider MAICOL if clinically indicated. May consider mobile cardiac telemetry monitoring (MCT) for ruling out transient AFIB. : TAMANNA ANDREWS > Vic Oliveira
--- NOTE | 2017-12-05 18:32 | PDOC DISCHARGE SUMMARY ---
General - Admit/Disc Date/PCP Admission Date/Primary Care Provider: 12/03/17 04:22 PREETHI GINA Discharge Date: 12/05/17 - Discharge Diagnosis (1) Cerebrovascular accident Is this a current diagnosis for this admission?: Yes Summary: See attending physician discharge orders. (2) TIA (transient ischemic attack) Is this a current diagnosis for this admission?: Yes Summary: See attending physician discharge orders. (3) Elevated troponin Is this a current diagnosis for this admission?: Yes Summary: See attending physician discharge orders. (4) Diabetes mellitus type 2 in obese Is this a current diagnosis for this admission?: Yes Summary: See attending physician discharge orders. (5) HTN (hypertension) Is this a current diagnosis for this admission?: Yes Summary: See attending physician discharge orders. (6) HLD (hyperlipidemia) Is this a current diagnosis for this admission?: Yes Summary: See attending physician discharge orders. (7) Diffuse large B cell lymphoma Is this a current diagnosis for this admission?: Yes Summary: See attending physician discharge orders. - Additional Information Resuscitation Status: Full Code Prescriptions: Aspirin [Ecotrin 81 mg EC Tablet] 81 mg PO DAILY #30 tabec Atorvastatin Calcium [Lipitor 40 mg Tablet] 40 mg PO QHS #30 tablet Clopidogrel Bisulfate [Plavix 75 mg Tablet] 75 mg PO DAILY #30 tablet Glimepiride [Amaryl 4 mg Tablet] 4 mg PO QAM #30 tablet Home Medications: Benazepril HCl [Lotensin] 40 mg PO DAILY 08/15/17 Insulin Lispro [Humalog Kwikpen U-100] 0 units SQ ASDIR PRN 08/15/17 Allopurinol [Zyloprim 100 mg Tablet] 100 mg PO DAILY 12/03/17 Nateglinide [Starlix] 120 mg PO Q8H 12/03/17 Ondansetron [Zofran Odt] 8 mg PO Q6HP PRN 12/03/17 Aspirin [Ecotrin 81 mg EC Tablet] 81 mg PO DAILY #30 tabec 12/05/17 Atorvastatin Calcium [Lipitor 40 mg Tablet] 40 mg PO QHS #30 tablet 12/05/17 Clopidogrel Bisulfate [Plavix 75 mg Tablet] 75 mg PO DAILY #30 tablet 12/05/17 Glimepiride [Amaryl 4 mg Tablet] 4 mg PO QAM #30 tablet 12/05/17 History of Present Illness History of Present Illness: CRISTEL PRESSLEY is a 72 year old male This is a 72-year-old male with a patient of Dr. Domínguez with a history of the type 2 diabetes history of the hypertension's and hyperlipidemia and history of the lymphoma with currently taking the chemotherapy the last chemotherapy was 2 weeks back came to the emergency department with a sudden onset of the left- sided facial droop, speech issue and a pretty much resolved while patient in the ER An initial CT of the head was all negative patient's denied any chest pain denied any shortness of the breath patient's only abnormal finding was patient troponin was 0.160 and the patient is having no symptoms with a cardiac standpoint and patients refused to go to the tertiary center for further evaluations decided to admit here Patient subsequent cardiac enzyme is also coming down Saw the patient on the floor patients denied any chest pain denied any shortness of the breath denied any weakness denied any history of the stroke in the past denied any cardiac problems Patients have a history of the lymphoma several years back was treated and then come back last year and currently see her Dr. Samaniego for that Hospital Course Hospital Course: He was admitted as a case of TIA. 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 Patient was managed with anticoagulant. He remain on statin therapy and anti hypertension treatment. He was seen in consultation by Dr Oliveira, scrub tech, due to slightly elevated Troponin I level that is probable due to mismatch leakage for tachycardia. His Carotid Doppler study was normal. He will be schedule for pharmacologic stress test on outpatient in the next 4-6 weeks. Physical Exam Vital Signs: Temp Pulse Resp BP Pulse Ox 98.0 F 94 16 105/58 L 100 12/05/17 16:00 12/05/17 16:00 12/05/17 16:00 12/05/17 16:00 12/05/17 16:00 Intake & Output 12/04/17 12/05/17 12/06/17 06:59 06:59 06:59 Intake Total 1774 2155 355 Balance 1774 2155 355 Weight 87.9 kg 86.3 kg General appearance: PRESENT: no acute distress Head exam: PRESENT: atraumatic, normocephalic Eye exam: PRESENT: conjunctiva pink, EOMI, PERRLA. ABSENT: scleral icterus Mouth exam: PRESENT: moist Neck exam: PRESENT: full ROM. ABSENT: carotid bruit, JVD, lymphadenopathy, thyromegaly Respiratory exam: PRESENT: clear to auscultation jihan Cardiovascular exam: PRESENT: RRR. ABSENT: diastolic murmur, rubs, systolic murmur Vascular exam: PRESENT: normal capillary refill. ABSENT: pallor GI/Abdominal exam: PRESENT: normal bowel sounds, soft. ABSENT: distended, guarding, mass, organolmegaly, rebound, tenderness Extremities exam: ABSENT: pedal edema Musculoskeletal exam: PRESENT: normal inspection Neurological exam: PRESENT: alert, awake, oriented to person, oriented to place , oriented to time, oriented to situation, CN II-XII grossly intact. ABSENT: motor sensory deficit Psychiatric exam: PRESENT: appropriate affect, normal mood. ABSENT: homicidal ideation, suicidal ideation Skin exam: PRESENT: dry, intact, warm. ABSENT: cyanosis, rash Results Laboratory Results: 12/05/17 06:42 12/05/17 06:42 12/05/17 12/05/17 06:42 06:42 WBC 1.9 L RBC 3.73 L Hgb 10.4 L Hct 30.9 L MCV 83 MCH 27.9 MCHC 33.7 RDW 16.3 H Plt Count 234 Seg Neutrophils % Not Reportable Lymphocytes % Not Reportable Monocytes % Not Reportable Eosinophils % Not Reportable Basophils % Not Reportable Absolute Neutrophils Not Reportable Absolute Lymphocytes Not Reportable Absolute Monocytes Not Reportable Absolute Eosinophils Not Reportable Absolute Basophils Not Reportable Sodium 131.1 L Potassium 4.4 Chloride 100 Carbon Dioxide 25 Anion Gap 6 BUN 11 Creatinine 0.76 Est GFR ( Amer) > 60 Est GFR (Non-Af Amer) > 60 Glucose 214 H Calcium 9.5 12/03/17 12/03/17 12/03/17 12:00 12:00 18:45 Creatine Kinase 50 L 49 L CK-MB (CK-2) 1.18 Troponin I 0.140 12/03/17 18:45 Creatine Kinase CK-MB (CK-2) 1.32 Troponin I 0.154 Impressions: Head CT 12/03/17 00:00 IMPRESSION: 1. No acute intracranial abnormality by CT criteria. Urgent finding reported to Nurse Todd at 12/02/2017 11:48 PM CDT This exam was performed according to our departmental dose-optimization program, which includes automated exposure control, adjustment of the mA and/or kV according to patient size and/or use of iterative reconstruction technique. Head MRI 12/03/17 00:00 IMPRESSION: Subacute tiny cortical infarct right frontal region, nonhemorrhagic. 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 No acute pulmonary process identified. Brain MRI with MRA 12/03/17 04:21 IMPRESSION: Subacute tiny cortical infarct right frontal region, nonhemorrhagic. 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 EVIDENCE OF ACUTE STROKE: Subacute tiny cortical infarct right frontal region Carotid Doppler Study 12/05/17 00:00 IMPRESSION: NO HEMODYNAMICALLY SIGNIFICANT STENOSIS. Qualifiers - * PATEINT BEING DISCHARGED WITH ANY OF THE FOLLOWING DIAGNOSIS?: Stroke VTE patient discharged on overlapping Therapy?: No Reason(s) for not prescribing Overlap Therapy:: Not indicated Stroke Pt being discharged on Anti-thrombolytic therapy?: Yes Stroke Pt being discharged on Anti-coagulation therapy?: Yes Stroke Pt being discharged on Statins?: Yes [facility] Pt being discharged on Statins?: Yes Plan Discharge Plan: D/C home today. Follow up in the office as instructed upon discharge. Time Spent: Less than 30 Minutes
--- NOTE | 2017-12-07 12:03 | PDOC PROGRESS REPORT ---
Subjective Progress Note for:: 12/05/17 Subjective:: Patient seems to be doing better with significant improvement. No new neurologic deficit reported and previous neurologic deficit has resolved. Pt is denying any chest arm or neck discomfort. Patient denying any PND, orthopnea. Patient denied any sustained palpitations, dizziness, syncope, near syncope. Patient denying any fever chills. Patient denying any other significant discomfort. Patient is maintaining sinus rhythm. Review of systems: Rest review of systems negative. Medications: Medications have been reviewed. Reason For Visit: TIA Physical Exam Vital Signs: Temp Pulse Resp BP Pulse Ox 98.0 F 94 16 105/58 L 100 12/05/17 18:48 12/05/17 18:48 12/05/17 18:48 12/05/17 18:48 12/05/17 18:48 Intake & Output 12/04/17 12/05/17 12/06/17 06:59 06:59 06:59 Intake Total 1774 2155 834 Balance 1774 2155 834 Weight 87.9 kg 86.3 kg Exam: GENERAL: well-nourished and in no acute distress. Alert and oriented x3 HEAD: Atraumatic, normocephalic. EYES: Pupils equal round and reactive to light, extraocular movements intact, sclera anicteric, conjunctiva are normal. ENT: TMs normal, nares patent, oropharynx clear without exudates. Moist mucous membranes. No oral ulcerations or bleeding gums noted NECK: supple without lymphadenopathy. Trachea is central. No cervical or axillary lymphadenopathy noted. Carotids are 2+, JVD WNL LUNGS: Respiration seems nonlabored, no significant accessory muscle action noted. Breath sounds clear to auscultation bilaterally and equal noted. No wheezes rales or rhonchi noted. No significant dullness noted on percussion. CHEST: Palpation of the chest wall shows no significant chest wall tenderness. No other significant abnormalities noted. HEART: [place] [employer] WASTE DISPOSAL, No PSH, 1/6 [place] aortic area, 1/6 [place] systolic murmur mitral area, no rubs, no gallops. ABDOMEN: Soft, no significant tenderness appreciated, normoactive bowel sounds. No guarding, no rebound. No rigidity noted . No masses appreciated. EXTREMITIES: Pedal pulses are 1-2+, no calf tenderness noted. No clubbing or cyanosis.trace to 1+ pedal edema noted NEUROLOGICAL: Focused neurological exam showed no significant neurologic deficit. Normal speech, no focal weakness appreciated. PSYCH: Normal mood, normal affect. Judgment and insight within normal limits. SKIN: No significant ecchymosis, skin is noted to be warm. MUSCULOSKELETAL EXAM: No significant acute joint swelling noted. Results Laboratory Results: 12/05/17 06:42 12/05/17 06:42 12/05/17 12/05/17 06:42 06:42 WBC 1.9 L RBC 3.73 L Hgb 10.4 L Hct 30.9 L MCV 83 MCH 27.9 MCHC 33.7 RDW 16.3 H Plt Count 234 Seg Neutrophils % Not Reportable Lymphocytes % Not Reportable Monocytes % Not Reportable Eosinophils % Not Reportable Basophils % Not Reportable Absolute Neutrophils Not Reportable Absolute Lymphocytes Not Reportable Absolute Monocytes Not Reportable Absolute Eosinophils Not Reportable Absolute Basophils Not Reportable Sodium 131.1 L Potassium 4.4 Chloride 100 Carbon Dioxide 25 Anion Gap 6 BUN 11 Creatinine 0.76 Est GFR ( Amer) > 60 Est GFR (Non-Af Amer) > 60 Glucose 214 H Calcium 9.5 12/03/17 12/03/17 12/03/17 12:00 12:00 18:45 Creatine Kinase 50 L 49 L CK-MB (CK-2) 1.18 Troponin I 0.140 12/03/17 18:45 Creatine Kinase CK-MB (CK-2) 1.32 Troponin I 0.154 EKG Comments: Telemetry shows sinus rhythm without any sustained tachycardia or bradycardia.Telemetry shows sinus rhythm without any sustained tachycardia or bradycardia. Impressions: Head CT 12/03/17 00:00 IMPRESSION: 1. No acute intracranial abnormality by CT criteria. Urgent finding reported to Nurse Todd at 12/02/2017 11:48 PM CDT This exam was performed according to our departmental dose-optimization program, which includes automated exposure control, adjustment of the mA and/or kV according to patient size and/or use of iterative reconstruction technique. Head MRI 12/03/17 00:00 IMPRESSION: Subacute tiny cortical infarct right frontal region, nonhemorrhagic. 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 No acute pulmonary process identified. Brain MRI with MRA 12/03/17 04:21 IMPRESSION: Subacute tiny cortical infarct right frontal region, nonhemorrhagic. 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 EVIDENCE OF ACUTE STROKE: Subacute tiny cortical infarct right frontal region Carotid Doppler Study 12/05/17 00:00 IMPRESSION: NO HEMODYNAMICALLY SIGNIFICANT STENOSIS. Assessment & Plan - Diagnosis (1) Elevated troponin Is this a current diagnosis for this admission?: Yes (2) TIA (transient ischemic attack) Qualifiers: Transient cerebral ischemia type: unspecified Qualified Code(s): G45.9 - Transient cerebral ischemic attack, unspecified Is this a current diagnosis for this admission?: Yes (3) HLD (hyperlipidemia) Qualifiers: Hyperlipidemia type: unspecified Qualified Code(s): E78.5 - Hyperlipidemia , unspecified Is this a current diagnosis for this admission?: Yes (4) HTN (hypertension) Qualifiers: Hypertension type: essential hypertension Qualified Code(s): I10 - Essential (primary) hypertension Is this a current diagnosis for this admission?: Yes (5) Hyperglycemia due to type 2 diabetes mellitus Qualifiers: Diabetes mellitus [facility] insulin use: unspecified [employer] insulin use status Qualified Code(s): E11.65 - Type 2 diabetes mellitus with hyperglycemia Is this a current diagnosis for this admission?: Yes (6) Diffuse large B cell lymphoma Qualifiers: Lymphoma site: unspecified region Qualified Code(s): C83.30 - Diffuse large B-cell lymphoma, unspecified site Is this a current diagnosis for this admission?: Yes (7) Cerebrovascular accident Qualifiers: CVA mechanism: unspecified Qualified Code(s): I63.9 - Cerebral infarction, unspecified Is this a current diagnosis for this admission?: Yes - Notes Notes: Abnormal troponin I elevation: Patient denies any chest pain. He does not have any significant EKG changes. Troponin I elevation possibly could be related to lymphoma and second kind of abnormal protein may cross react with reagent and cause a false positive elevation of troponin I. Patient's MRIs shows subacute infarct/acute infarct. Occasionally cerebrovascular accident can give rise to troponin I release because of associated coronary vasospasm which can occur. In view of patient having sustaining a acute infarct, will postpone any cardiovascular workup especially with stress testing for several weeks. This was again explained to the patient. Patient advised to make a follow-up appointment with me on discharge. Cerebrovascular accident: So far no definite cause has been noted. Possibly atherosclerosis related. Recommend antiplatelet therapy and statin therapy in the time being. Plavix being preferred. Would recommend event monitoring as an outpatient to rule out transient atrial fibrillation. Dyslipidemia: Recommend statin therapy. LDL goal is less than 70. Hypertension: Blood pressure goal 140/90 or less. Hyperglycemia secondary to diabetes: This is being well managed by pan cleaner. Diffuse beta cell lymphoma: Patient being managed by oncologist. In view of cerebrovascular accident, recommendations are for patient to pursue a sleep study. This will be scheduled as an outpatient. Also recommend cardiac event monitoring as an outpatient. - Time Time with patient: 15-25 minutes - CODE STATUS was discussed, patient remains full code. Surrogate decision-maker unchanged. Multiple medical problems were addressed. More than 50% of the time spent coordinating care, discussing management plans with involved caregivers. Management plans discussed with involved personnels. Medical decision making was of moderate to high complexity , patient's has multiple comorbidities. Medications reviewed and adjusted accordingly: Yes
== END 2017-12-05 18:59 | disposition home or self-care (01) | DRG 65 ==
LOC: ER 00:18 → EH 04:22 → 3S 05:18
PROVIDERS: ADMIT Family Medicine; ATTEND Internal Medicine Geriatric Medicine
DX: I63.9 Cerebral infarction, unspecified (principal); C83.30 Diffuse large B-cell lymphoma, unspecified site; E11.9 Type 2 diabetes mellitus without complications; I10 Essential (primary) hypertension; R29.810 Facial weakness; R47.01 Aphasia; E78.5 Hyperlipidemia, unspecified; D64.9 Anemia, unspecified; R74.8 Abnormal levels of other serum enzymes; E66.9 Obesity, unspecified; Z79.899 Other long term (current) drug therapy; Z79.4 Long term (current) use of insulin; Z88.8 Allergy status to other drugs, medicaments and biological substances; Z79.82 Long term (current) use of aspirin
CPT/HCPCS: 36415; 70450; 70544; 70551; 71045; 80048; 80053; 82550; 82553; 82962; 84484; 85025; 85610; 85730; 93005; 93010; 93306; 93880; 96360; 99285; G8978-GP; G8979-GP; G8980-GP; J1650; J1815; J3490; J7030

== ENCOUNTER 2018-01-02 21:34 | Emergency (ER) | payer MEDICARE, BC ==
[2018-01-02] MEDS ORDERED: NORMAL SALINE 500 ML IV ONE (22:27)
[2018-01-02 22:43] LABS: ABSOLUTE LYMPHOCYTES (AUTO) 0.3 10^3/uL (0.5-4.7); ABSOLUTE MONOCYTES (AUTO) 0.1 10^3/uL (0.1-1.4); BASOPHILS % (AUTO) 0.8 % (0-2); EOSINOPHILS % (AUTO) 0.2 % (0-6); HEMATOCRIT 32.7 % (37.9-51.0); HEMOGLOBIN 10.8 g/dL (13.5-17.0); LYMPHOCYTES % (AUTO) 20.9 % (13-45); MEAN CORPUSCULAR HGB CONC 33.1 g/dL (32.0-36.0); MEAN CORPUSCULAR VOLUME 84 fl (80-97); MONOCYTES % (AUTO) 8.9 % (3-13); PLATELET COUNT 248 10^3/uL (150-450); RED BLOOD COUNT 3.88 10^6/uL (4.35-5.55); RED CELL DISTRIBUTION WIDTH 16.7 % (11.5-14.0); SEGMENTED NEUTROPHILS % (AUTO) 69.2 % (42-78); TOTAL CELLS COUNTED % (AUTO) 100 %
[2018-01-02 22:48] LABS: WHITE BLOOD COUNT 1.5 10^3/uL (4.0-10.5)
[2018-01-02 22:50] LABS: ALANINE AMINOTRANSFERASE 23 U/L (21-72); ALBUMIN 4.1 g/dL (3.5-5.0); ALKALINE PHOSPHATASE 65 U/L (38-126); ANION GAP 15 (5-19); ASPARTATE AMINO TRANSFERASE 26 U/L (17-59); BILIRUBIN,DIRECT 0.3 mg/dL (0.0-0.4); BILIRUBIN,TOTAL 0.3 mg/dL (0.2-1.3); BLOOD UREA NITROGEN 13 mg/dL (7-20); CALCIUM 10.1 mg/dL (8.4-10.2); CARBON DIOXIDE 22 mmol/L (22-30); CHLORIDE 99 mmol/L (98-107); CREATINE KINASE 107 U/L (55-170); POTASSIUM 4.8 mmol/L (3.6-5.0); SODIUM 135.7 mmol/L (137-145)
[2018-01-02 23:01] LABS: CREATINE KINASE MB 1.49 ng/mL (<4.55)
[2018-01-02 23:09] LABS: GLUCOSE 500 mg/dL (75-110)
[2018-01-02 23:10] LABS: TROPONIN I 0.112 ng/mL
[2018-01-02] MEDS ORDERED: INSULIN REG, HUMAN 100 UNIT/ML 3 ML VIAL (PYX) SUBCUT ONE (23:13)
[2018-01-02 23:14] LABS: ANISOCYTOSIS 1+; OVALOCYTES 1+
[2018-01-02 23:15] LABS: PLATELET COMMENT ADEQUATE; TEAR DROP CELLS 1+
[2018-01-02 23:16] LABS: TARGET CELLS SLIGHT
[2018-01-02 23:17] LABS: SCHISTOCYTES SLIGHT
[2018-01-02] MEDS ORDERED: LORAZEPAM INJ 2 MG/1 ML VIAL ONE (23:24)
[2018-01-02] MEDS ORDERED: LEVETIRACETAM 1000 MG/NACL-ISO 1,000 MG/100 ML RTUPB IV ONE (23:25)
--- NOTE | 2018-01-02 23:27 | ER Document Report ---
ED General - General Chief Complaint: Probable Seizure Stated Complaint: POSSIBLE SEIZURE Time Seen by Provider: 01/02/18 22:01 Notes: Patient is a 72-year-old male presents with complaint of seizure. Patient has a history of B-cell lymphoma is currently chemotherapy. He was recently started 2 medications today which include dexamethasone as well as nystatin. He saw Dr. Samaniego, his oncologist, today. At home he started having a seizure. He said he has a tremor like seizure does seem to affect more his left side. After that he was confused and altered. Since then his speech has been somewhat slurred. He did have a stroke a few weeks ago. No recent fevers or infections. No vomiting. Patient denies any pain or headache. He denies any extremity pain. No chest pain. No abdominal pain. He just complains that his left arm feels odd. TRAVEL OUTSIDE OF THE [place] IN LAST 30 DAYS: No - Related Data Allergies/Adverse Reactions: clonidine Allergy (Verified 08/15/17 08:51) Past Medical History - Social History Smoking Status: Former Smoker Chew tobacco use (# tins/day): No Frequency of alcohol use: None Drug Abuse: None Family History: Hypertension Patient has suicidal ideation: No Patient has homicidal ideation: No - Past Medical History Cardiac Medical History: Reports: Hx Hypercholesterolemia, Hx Hypertension Denies: Hx Coronary Artery Disease, Hx Heart Attack Pulmonary Medical History: Denies: Hx Asthma, Hx Bronchitis, Hx COPD, Hx Pneumonia Neurological Medical History: Denies: Hx Cerebrovascular Accident, Hx Seizures Endocrine Medical History: Reports: Hx Diabetes Mellitus Type 2 Renal/ Medical History: Denies: Hx Peritoneal Dialysis Malignancy Medical History: Reports Hx Lymphoma - Non Hodgkin's Lymphoma. Musculoskeltal Medical History: Denies Hx Arthritis Psychiatric Medical History: Denies: Hx Depression - Immunizations Hx Diphtheria, Pertussis, Tetanus Vaccination: No - unknown Review of Systems - Review of Systems Notes: My Normal Review Basic REVIEW OF SYSTEMS: CONSTITUTIONAL : Denies fever, chills, or sweats. Denies recent illness. EENT: Denies eye, ear, throat, or mouth pain or symptoms. Denies nasal or sinus congestion. CARDIOVASCULAR: Denies chest pain. RESPIRATORY: Denies cough, cold, or chest congestion. Denies shortness of breath, difficulty breathing, or wheezing. GASTROINTESTINAL: Denies abdominal pain. Denies nausea, vomiting, or diarrhea. Denies constipation. Last BM: MUSCULOSKELETAL: Denies neck or back pain or joint pain or swelling. SKIN: Denies rash or skin lesions. NEUROLOGICAL: Seizure-like activity earlier today followed by some slurred speech. ALL OTHER SYSTEMS REVIEWED AND NEGATIVE. Physical Exam - Vital signs Vitals: Temp 97.6 F 01/02/18 21:55 - Notes Notes: General Appearance: Well nourished, alert, cooperative, no acute distress, no obvious discomfort. Well-appearing. Vitals: reviewed, See vital signs table. Head: no swelling or tenderness to the head Eyes: PERRL, EOMI, Conjuctiva clear Mouth: No decreasd moisture Throat: No tonsillar inflammation, No airway obstruction, No lymphadenopathy Neck: Supple, no neck tenderness, No thyromegaly Lungs: No wheezing, No rales, No rhonci, No accessory muscle use, good air exchange bilaterally. Heart: Normal rate, Regular rythm, No murmur, no rub Abdomen: Normal BS, soft, No rigidity, No abdominal tenderness, No guarding, no rebound, no abdominal masses, no organomegaly Extremities: strength 5/5 in all extremities, good pulses in all extremities, no swelling or tenderness in the extremities, no edema. Skin: warm, dry, appropriate color, no rash Neuro: , oriented x 3, normal affect, responds appropriately to questions. Renal nerves II through XII are intact exception of just slightly garbled speech. He answers all questions appropriately. He has good strength in all 4 extremities. No evidence of focal neurologic deficits in any of the 4 extremities. Good distal sensation. Good coordination of movement of his extremities. Course - Re-evaluation Re-evalutation: 01/02/18 23:26 Patient has had a seizure. During the patient's seizure he was awake and alert but the seizures affecting mostly his left side specifically his left arm. He did have full tonic-clonic motions of his left arm which appear consistent with a partial epileptic seizure. These resolved with 2 mg Ativan IV. I will give him a dose of Keppra. I just reviewed a CT scan of his head and I do not see any large obvious abnormalities at this time. 01/03/18 02:23 Patient has not had any further seizure activity since receiving the Keppra. He is easily arousable. He still has some slurred speech but he is able move all 4 extremities without any difficulty. I did speak with Dr. Samaniego, patient 's oncologist. I talked her about the patient's findings and presentation today. She requested we are to transfer the patient to [place] being that the patient has the recurrent B-cell lymphoma and now has had seizures. She feels that they can provide further treatment that she cannot provide here and also further workup that she cannot get completed here. I did call [facility] spoke with the transfer center. They called me back and said that the patient was accepted as an ER to ER transfer. Accepting physician is Dr. Chapman. 01/03/18 06:40 I reevaluated the patient. He continues to be resting comfortably. Vital signs are normal. Continues to be stable for transfer. Dictation of this chart was performed using voice recognition software; therefore, there may be some unintended grammatical errors. - Vital Signs Vital signs: Temp Pulse Resp BP Pulse Ox 97.6 F 92 17 139/88 H 95 01/02/18 21:55 01/03/18 04:57 01/03/18 04:57 01/03/18 04:57 01/03/18 04:57 - Laboratory Result Diagrams: 01/02/18 22:12 01/02/18 22:12 Laboratory results interpreted by me: 01/02/18 01/02/18 01/03/18 22:12 22:12 00:27 WBC 1.5 L* RBC 3.88 L Hgb 10.8 L Hct 32.7 L RDW 16.7 H Absolute Neutrophils 1.0 L Absolute Lymphocytes 0.3 L Sodium 135.7 L Glucose 500 H* POC Glucose 444 H* Total Protein 6.0 L Discharge - Discharge Clinical Impression: Seizure B-cell lymphoma Qualifiers: B-cell lymphoma type: unspecified B-cell Lymphoma site: unspecified region Qualified Code(s): C85.10 - Unspecified B-cell lymphoma, unspecified site Condition: Stable Disposition: [facility] Referrals: PREETHI FUENTES MD [Primary Care Provider] - Follow up as needed
--- NOTE | 2018-01-03 00:03 | RADIOLOGY REPORT (SQ) ---
EXAM DESCRIPTION: CT HEAD WITHOUT CLINICAL HISTORY: 72 years Male, headache COMPARISON: CT December 03, 2017. MRI report, December 03, 2017. TECHNIQUE: No contrast. Coronal and sagittal reformat. This exam was performed according to our departmental dose-optimization program, which includes automated exposure control, adjustment of the mA and/or kV according to patient size and/or use of iterative reconstruction technique. FINDINGS: Increased attenuation of right frontoparietal cortex which may indicate evolving subacute infarct. Contrast MRI correlation recommended. No mass, mass effect, or midline shift. Prominent ventricles. Mild white matter microangiopathy. Atherosclerosis. Moderate cervical disc desiccation. IMPRESSION: Increased attenuation of right frontoparietal cortex which may indicate evolving subacute infarct. Contrast MRI correlation/surveillance recommended.
[2018-01-03] MEDS ORDERED: DILTIAZEM HCL/D5W 125 MG/125 ML RTUINJ IV PRN (00:06)
[2018-01-03 10:13] VITALS: BP 146/99
[2018-01-03 10:26] LABS: APPEARANCE,URINE CLEAR; BILIRUBIN,URINE NEGATIVE (NEGATIVE); COLOR,URINE YELLOW; GLUCOSE, URINE >=500 mg/dL (NEGATIVE); KETONES,URINE TRACE mg/dL (NEGATIVE); LEUKOCYTE ESTERASE,URINE NEGATIVE (NEGATIVE); NITRITE,URINE NEGATIVE (NEGATIVE); PROTEIN,URINE NEGATIVE (NEGATIVE); URINE SPECIFIC GRAVITY 1.026; UROBILINOGEN,URINE NEGATIVE mg/dL (<2.0)
== END 2018-01-03 10:15 | disposition short-term general hospital (02) ==
LOC: ER 21:34
DX: R56.9 Unspecified convulsions (principal); C85.10 Unspecified B-cell lymphoma, unspecified site; Z79.899 Other long term (current) drug therapy; I10 Essential (primary) hypertension; Z86.73 Personal history of transient ischemic attack (TIA), and cerebral infarction without residual deficits; Z88.8 Allergy status to other drugs, medicaments and biological substances; Z87.891 Personal history of nicotine dependence; E11.9 Type 2 diabetes mellitus without complications; R47.81 Slurred speech
CPT/HCPCS: 99285; 96374; 96375; 36415; 87040; 82553; 82962; 82550; 83735; 85025; 87077; 80053; 81001; 84484; 87186; 70450; J2060; A9270; J7040; J1953; J1815

== ENCOUNTER → 2018-01-02 | Outpatient (CLI) | payer MEDICARE, BC ==
--- NOTE | 2018-01-02 11:05 | RADIOLOGY REPORT (SQ) ---
EXAM DESCRIPTION: CT THORACIC SPINE WITHOUT; CT LUMBAR SPINE WITHOUT COMPLETED DATE/TIME: 01/02/2018 10:37 am REASON FOR STUDY: DORSALGIA M54.9 DORSALGIA, UNSPECIFIED COMPARISON: None. TECHNIQUE: Axial images acquired through the thoracic and lumbar spine without intravenous contrast. Images reviewed with lung, soft tissue and bone windows. Reconstructed coronal and sagittal MPR im ages reviewed. Images stored on PACS. All CT scanners at this facility use dose modulation, iterative reconstruction, and/or weight based d osing when appropriate to reduce radiation dose to as low as reasonably achievable (ALARA). [facility]: Dose Right [facility]: CareDose [facility]: Dose Right [facility]: Teradose 4D [facility]: Salorix RADIATION DOSE: CT Rad equipment meets quality standard of care and radiation dose reduction techniq ues were employed. CTDIvol: 19.7 mGy. DLP: 1125 mGy-cm. mGy. LIMITATIONS: None. FINDINGS: There is an 8 mm nodule in the right lower lobe which was not present on the CT 08/11/2017 . There is intact instrumentation status post posterior decompression T10-11, T11-12 with culpectomy an d cage graft placement spanning T11. Posterior fusion T 8, T9, T10, and T12 through L2 with posterio r bridging rods. No new bone lesions. No paraspinal mass. IMPRESSION: 1. No evidence of spinal cord or paraspinal mass status post extensive spinal instrumentation. 2. New 8 mm pulmonary nodule right lower lobe. TECHNICAL DOCUMENTATION: JOB ID: [id number] Quality ID # [id number]: Final reports with documentation of one or more dose reduction techniques (e.g., Au tomated exposure control, adjustment of the mA and/or kV according to patient size, use of iterative reconstruction technique) 2010 [employer]- All Rights Reserved Reading location - IP/workstation name: [email or web address]
--- NOTE | 2018-01-02 11:05 | RADIOLOGY REPORT (SQ) ---
EXAM DESCRIPTION: CT THORACIC SPINE WITHOUT; CT LUMBAR SPINE WITHOUT COMPLETED DATE/TIME: 01/02/2018 10:37 am REASON FOR STUDY: DORSALGIA M54.9 DORSALGIA, UNSPECIFIED COMPARISON: None. TECHNIQUE: Axial images acquired through the thoracic and lumbar spine without intravenous contrast. Images reviewed with lung, soft tissue and bone windows. Reconstructed coronal and sagittal MPR im ages reviewed. Images stored on PACS. All CT scanners at this facility use dose modulation, iterative reconstruction, and/or weight based d osing when appropriate to reduce radiation dose to as low as reasonably achievable (ALARA). [facility]: Dose Right [facility]: CareDose [facility]: Dose Right [facility]: Teradose 4D [facility]: Apparcando RADIATION DOSE: CT Rad equipment meets quality standard of care and radiation dose reduction techniq ues were employed. CTDIvol: 19.7 mGy. DLP: 1125 mGy-cm. mGy. LIMITATIONS: None. FINDINGS: There is an 8 mm nodule in the right lower lobe which was not present on the CT 08/11/2017 . There is intact instrumentation status post posterior decompression T10-11, T11-12 with culpectomy an d cage graft placement spanning T11. Posterior fusion T 8, T9, T10, and T12 through L2 with posterio r bridging rods. No new bone lesions. No paraspinal mass. IMPRESSION: 1. No evidence of spinal cord or paraspinal mass status post extensive spinal instrumentation. 2. New 8 mm pulmonary nodule right lower lobe. TECHNICAL DOCUMENTATION: JOB ID: [id number] Quality ID # [id number]: Final reports with documentation of one or more dose reduction techniques (e.g., Au tomated exposure control, adjustment of the mA and/or kV according to patient size, use of iterative reconstruction technique) 2010 [employer] - [employer]- All Rights Reserved Reading location - IP/workstation name: [email or web address]
== END ==
LOC: RAD 09:21
PROVIDERS: ATTEND Internal Medicine Medical Oncology
DX: M54.9 Dorsalgia, unspecified (principal); R91.1 Solitary pulmonary nodule; Z98.1 Arthrodesis status
CPT/HCPCS: 72128; 72131